=== PATIENT | female | born 1940 | race American Indian/Alaskan Native ===

== ENCOUNTER 2020-01-12 02:04 | Inpatient (IN) | payer MEDICARE, OTHER ==
[2020-01-12] MEDS ORDERED: SODIUM CHLORIDE 0.9% 1000 ML 1,000 ML IV ONE (02:43)
--- NOTE | 2020-01-12 02:45 | Emergency Department Report ---
ED Altered Mental Status HPI - General Chief Complaint: Neuro Symptoms/Deficit Stated Complaint: SICKNESS/NOT EATING PROPERLY PUI?: No Time Seen by Provider: 01/12/20 02:42 Source: EMS Mode of arrival: Stretcher Limitations: Altered Mental Status - History of Present Illness Initial Comments: Patient is a 80-year-old female that presents emergency room with altered mental status and not eating since Thursday. Patient recently admitted into a alf. The nurse at the alf states that the patient has not been acting right. Patient's last known well time is unknown. Patient at this time is alert and oriented x1. MD Complaint: altered mental status, confusion - Related Data Allergies Allergy/AdvReac Type Severity Reaction Status Date / Time No Known Allergies Allergy Verified 01/12/20 05:37 ED Review of Systems ROS: Stated complaint: SICKNESS/NOT EATING PROPERLY Other details as noted in HPI Comment: Unobtainable due to pts medical conditions ED Past Medical Hx - Past Medical History Previous Medical History?: Yes Hx Hypertension: Yes Hx Diabetes: Yes Hx GERD: Yes Hx of Cancer: Yes Hx Psychiatric Treatment: Yes (depression) - Surgical History Past Surgical History?: Yes Additional Surgical History: ostomy - Family History Family history: no significant - Social History Smoking Status: Never Smoker Substance Use Type: Alcohol ED Physical Exam - General Limitations: Altered Mental Status General appearance: alert, in no apparent distress - Head Head exam: Present: atraumatic, normocephalic - Eye Eye exam: Present: normal appearance - ENT ENT exam: Present: mucous membranes moist - Neck Neck exam: Present: normal inspection - Respiratory Respiratory exam: Present: normal lung sounds bilaterally. Absent: respiratory distress - Cardiovascular Cardiovascular Exam: Present: regular rate, normal rhythm. Absent: systolic murmur, diastolic murmur, rubs, gallop - GI/Abdominal GI/Abdominal exam: Present: soft, normal bowel sounds - Extremities Exam Extremities exam: Present: normal inspection - Back Exam Back exam: Present: normal inspection - Neurological Exam Neurological exam: Present: alert, altered - Expanded Neurological Exam Expanded Best Eye Response ([place]): (4) open spontaneously Best Motor Response ([place]): (6) obeys commands Best Verbal Response ([place]): (4) confused conversation [place] Total: 14 - Psychiatric Psychiatric exam: Present: normal affect, normal mood - Skin Skin exam: Present: warm, dry, intact, normal color. Absent: rash - Assessment Assessment Interval: Baseline - Level of Consciousness 1a. Level of Consciousness: alert/keenly responsive - LOC Questions 1b. LOC Questions: answers 1 question correctly - LOC Command 1c. LOC Commands: performs tasks correctly - Best Gaze 2. Best Gaze: normal - Visual 3. Visual: no visual loss - Facial Palsy 4. Facial Palsy: normal symmetrical movement - Motor Arm 5a. Motor Arm Left: no drift 5b. Motor Arm Right: no drift - Motor Leg 6a. Motor Leg Left: no drift 6b. Motor Leg Right: no drift - Limb Ataxia 7. Limb Ataxia: absent - Sensory 8. Sensory: normal - Best Language 9. Best Language: no aphasia - Dysarthria 10. Dysarthria: normal - Extinction and Inattention 11. Extinction/Inattention: no abnormality - Scoring Total Score: 1 Stroke Severity: Minor Stroke ED Course Vital Signs 01/12/20 01/12/20 02:14 04:51 Temperature 99.7 F H 98.2 F Pulse Rate 83 89 Respiratory 26 H 18 Rate Blood Pressure 115/63 119/72 [left arm] O2 Sat by Pulse 98 98 Oximetry - Reevaluation(s) Reevaluation #1: I discussed all results with patient. I discussed plan of care with patient. Patient agrees with plan of care and admission. Patient to be admitted to the hospitalist service. 01/12/20 04:30 - Consultations Consultation #1: Hospitalist consulted for admission. Hospitalist to admit patient. 01/12/20 04:30 - Lab Data Result diagrams: 01/12/20 03:07 01/12/20 03:07 Lab Results 01/12/20 01/12/20 01/12/20 Range/Units 03:07 03:07 03:07 WBC 2.6 L (4.5-11.0) K/mm3 RBC 3.53 L (3.65-5.03) M/mm3 Hgb 11.0 (10.1-14.3) gm/dl Hct 33.4 (30.3-42.9) % MCV 95 (79-97) fl MCH 31 (28-32) pg MCHC 33 (30-34) % RDW 15.3 H (13.2-15.2) % Plt Count 38 L (140-440) K/mm3 Lymph % (Auto) 21.0 (13.4-35.0) % Hood % (Auto) 6.1 (0.0-7.3) % Eos % (Auto) 0.7 (0.0-4.3) % Baso % (Auto) 0.3 (0.0-1.8) % Lymph # (Auto) 0.5 L (1.2-5.4) K/mm3 Hood # (Auto) 0.2 (0.0-0.8) K/mm3 Eos # (Auto) 0.0 (0.0-0.4) K/mm3 Baso # (Auto) 0.0 (0.0-0.1) K/mm3 Seg Neutrophils % 71.9 H (40.0-70.0) % Seg Neutrophils # 1.8 (1.8-7.7) K/mm3 Sodium 137 (137-145) mmol/L Potassium 4.8 (3.6-5.0) mmol/L Chloride 99.5 (98-107) mmol/L Carbon Dioxide 26 (22-30) mmol/L Anion Gap 16 mmol/L BUN 22 H (7-17) mg/dL Creatinine 1.7 H (0.6-1.2) mg/dL Estimated GFR 35 ml/min BUN/Creatinine Ratio 13 % Glucose 125 H (65-100) mg/dL Lactic Acid 1.10 (0.7-2.0) mmol/L Calcium 7.4 L (8.4-10.2) mg/dL Total Bilirubin 0.30 (0.1-1.2) mg/dL AST 21 (5-40) units/L ALT 11 (7-56) units/L Alkaline Phosphatase 33 L (35-129) units/L Ammonia (25-60) umol/L Total Creatine Kinase 74 (30-135) units/L Troponin T < 0.010 (0.00-0.029) ng/mL Total Protein 6.0 L (6.3-8.2) g/dL Albumin 3.4 L (3.9-5) g/dL Albumin/Globulin Ratio 1.3 % Salicylates (2.8-20.0) mg/dL Acetaminophen (10.0-30.0) ug/mL Plasma/Serum Alcohol (0-0.07) % 01/12/20 01/12/20 01/12/20 Range/Units 03:07 03:07 03:07 WBC (4.5-11.0) K/mm3 RBC (3.65-5.03) M/mm3 Hgb (10.1-14.3) gm/dl Hct (30.3-42.9) % MCV (79-97) fl MCH (28-32) pg MCHC (30-34) % RDW (13.2-15.2) % Plt Count (140-440) K/mm3 Lymph % (Auto) (13.4-35.0) % Hood % (Auto) (0.0-7.3) % Eos % (Auto) (0.0-4.3) % Baso % (Auto) (0.0-1.8) % Lymph # (Auto) (1.2-5.4) K/mm3 Hood # (Auto) (0.0-0.8) K/mm3 Eos # (Auto) (0.0-0.4) K/mm3 Baso # (Auto) (0.0-0.1) K/mm3 Seg Neutrophils % (40.0-70.0) % Seg Neutrophils # (1.8-7.7) K/mm3 Sodium (137-145) mmol/L Potassium (3.6-5.0) mmol/L Chloride (98-107) mmol/L Carbon Dioxide (22-30) mmol/L Anion Gap mmol/L BUN (7-17) mg/dL Creatinine (0.6-1.2) mg/dL Estimated GFR ml/min BUN/Creatinine Ratio % Glucose (65-100) mg/dL Lactic Acid (0.7-2.0) mmol/L Calcium (8.4-10.2) mg/dL Total Bilirubin (0.1-1.2) mg/dL AST (5-40) units/L ALT (7-56) units/L Alkaline Phosphatase (35-129) units/L Ammonia 11.0 L (25-60) umol/L Total Creatine Kinase (30-135) units/L Troponin T (0.00-0.029) ng/mL Total Protein (6.3-8.2) g/dL Albumin (3.9-5) g/dL Albumin/Globulin Ratio % Salicylates < 0.3 L (2.8-20.0) mg/dL Acetaminophen 5.0 L (10.0-30.0) ug/mL Plasma/Serum Alcohol (0-0.07) % 01/12/20 Range/Units 03:07 WBC (4.5-11.0) K/mm3 RBC (3.65-5.03) M/mm3 Hgb (10.1-14.3) gm/dl Hct (30.3-42.9) % MCV (79-97) fl MCH (28-32) pg MCHC (30-34) % RDW (13.2-15.2) % Plt Count (140-440) K/mm3 Lymph % (Auto) (13.4-35.0) % Hood % (Auto) (0.0-7.3) % Eos % (Auto) (0.0-4.3) % Baso % (Auto) (0.0-1.8) % Lymph # (Auto) (1.2-5.4) K/mm3 Hood # (Auto) (0.0-0.8) K/mm3 Eos # (Auto) (0.0-0.4) K/mm3 Baso # (Auto) (0.0-0.1) K/mm3 Seg Neutrophils % (40.0-70.0) % Seg Neutrophils # (1.8-7.7) K/mm3 Sodium (137-145) mmol/L Potassium (3.6-5.0) mmol/L Chloride (98-107) mmol/L Carbon Dioxide (22-30) mmol/L Anion Gap mmol/L BUN (7-17) mg/dL Creatinine (0.6-1.2) mg/dL Estimated GFR ml/min BUN/Creatinine Ratio % Glucose (65-100) mg/dL Lactic Acid (0.7-2.0) mmol/L Calcium (8.4-10.2) mg/dL Total Bilirubin (0.1-1.2) mg/dL AST (5-40) units/L ALT (7-56) units/L Alkaline Phosphatase (35-129) units/L Ammonia (25-60) umol/L Total Creatine Kinase (30-135) units/L Troponin T (0.00-0.029) ng/mL Total Protein (6.3-8.2) g/dL Albumin (3.9-5) g/dL Albumin/Globulin Ratio % Salicylates (2.8-20.0) mg/dL Acetaminophen (10.0-30.0) ug/mL Plasma/Serum Alcohol < 0.01 (0-0.07) % - EKG Data -: EKG Interpreted by [place] EKG shows normal: sinus rhythm, axis, intervals, QRS complexes, ST-T waves Rate: normal - Radiology Data Radiology results: report reviewed CHEST 1 VIEW INDICATION: Altered Mental Status. COMPARISON: None. FINDINGS: Support devices: None. Heart: Normal. Lungs/Pleura: There are low lung volumes. No consolidation or effusion. No pneumothorax. IMPRESSION: 1. No acute findings. CT HEAD WITHOUT CONTRAST INDICATION: Altered Mental Status. TECHNIQUE: All CT scans at this location are performed using CT dose reduction for [place] by means of automated exposure control. COMPARISON: None available. FINDINGS: HEMORRHAGE: None. EXTRA-AXIAL SPACES: Normal in size and morphology for the patient's age. VENTRICULAR SYSTEM: Normal in size and morphology for the patient's age. BRAIN PARENCHYMA: No acute findings. Atrophic and presumed microangiopathic changes are noted. MIDLINE SHIFT OR HERNIATION: None. ORBITS: Normal as visualized. SOFT TISSUES OF HEAD: Normal. CALVARIUM: Normal. VISUALIZED PARANASAL SINUSES AND MASTOID AIR CELLS: Because cyst versus polyp is seen in the inferior left maxillary sinus. Sinuses are otherwise clear. ADDITIONAL FINDINGS: None. IMPRESSION: 1. No acute intracranial abnormality. - Medical Decision Making Patient is a 80-year-old female that presents emergency room with poor p.o. intake and confusion and altered mental status. Patient was sent here from her alf because the patient was not acting right. Patient had labs done and labs were remarkable for acute renal failure. Patient had a head CT and a chest x-ray which were both unremarkable. Patient given fluids. Patient admitted to the hospital service for further evaluation and treatment. - Differential Diagnosis Altered mental status, dehydration, UTI, confusion, dementia Critical Care Time: Yes Critical care time in (mins) excluding proc time.: 35 Critical care attestation.: If time is entered above; I have spent that time in minutes in the direct care of this critically ill patient, excluding procedure time. Critical Care Time: 35 minutes ED Disposition Clinical Impression: Poor fluid intake Altered mental state Qualifiers: Altered mental status type: unspecified Qualified Code(s): R41.82 - Altered mental status, unspecified Renal failure Qualifiers: Renal failure chronicity: acute Acute renal failure type: unspecified Qualified Code(s): N17.9 - Acute kidney failure, unspecified Disposition: DC-09 OP ADMIT IP TO THIS HOSP Is pt being admited?: Yes Does the pt Need Aspirin: No Condition: Critical Time of Disposition: 04:26
--- NOTE | 2020-01-12 03:16 | XRay Report ---
CHEST 1 VIEW INDICATION: Altered Mental Status. COMPARISON: None. FINDINGS: Support devices: None. Heart: Normal. Lungs/Pleura: There are low lung volumes. No consolidation or effusion. No pneumothorax. IMPRESSION: 1. No acute findings. Signer Name: Benitez Mercer MD Signed: 01/12/2020 3:11 AM Workstation Name: [id number]
[2020-01-12 03:26] LABS: Basophils % (Auto) 0.3 % (0.0-1.8); Eosinophils % (Auto) 0.7 % (0.0-4.3); Hematocrit 33.4 % (30.3-42.9); Lymphocytes # (Auto) 0.5 K/mm3 (1.2-5.4); Mean Corpuscular HGB Conc 33 % (30-34); Mean Corpuscular Volume 95 fl (79-97); Monocytes # (Auto) 0.2 K/mm3 (0.0-0.8); Monocytes % (Auto) 6.1 % (0.0-7.3); Red Blood Count 3.53 M/mm3 (3.65-5.03); Red Cell Distribution Width 15.3 % (13.2-15.2)
--- NOTE | 2020-01-12 03:27 | Cat Scan Report ---
CT HEAD WITHOUT CONTRAST INDICATION: Altered Mental Status. TECHNIQUE: All CT scans at this location are performed using CT dose reduction for [place] by means of automated e xposure control. COMPARISON: None available. FINDINGS: HEMORRHAGE: None. EXTRA-AXIAL SPACES: Normal in size and morphology for the patient's age. VENTRICULAR SYSTEM: Normal in size and morphology for the patient's age. BRAIN PARENCHYMA: No acute findings. Atrophic and presumed microangiopathic changes are noted. MIDLINE SHIFT OR HERNIATION: None. ORBITS: Normal as visualized. SOFT TISSUES OF HEAD: Normal. CALVARIUM: Normal. VISUALIZED PARANASAL SINUSES AND MASTOID AIR CELLS: Because cyst versus polyp is seen in the inferior left maxillary sinus. Sinuses are otherwise clear. ADDITIONAL FINDINGS: None. IMPRESSION: 1. No acute intracranial abnormality. Signer Name: Benitez Mercer MD Signed: 01/12/2020 3:22 AM Workstation Name: [id number]
[2020-01-12 03:28] LABS: Platelet Count 38 K/mm3 (140-440)
[2020-01-12 03:48] LABS: Alanine Aminotransferase 11 units/L (7-56); Albumin 3.4 g/dL (3.9-5); BUN/Creatinine Ratio 13; Blood Urea Nitrogen 22 mg/dL (7-17); Calcium 7.4 mg/dL (8.4-10.2); Hemolysis Index 4
[2020-01-12] MEDS ORDERED: DEXTROSE 50% IN WATER (25GM) 50 ML SYRINGE IV PRN (05:22)
[2020-01-12] MEDS ORDERED: MAGNESIUM HYDROXIDE (MOM) ORAL LIQD UDC PO PRN (05:22)
[2020-01-12] MEDS ORDERED: ONDANSETRON 4 MG/2 ML INJ IV PRN (05:22)
--- NOTE | 2020-01-12 05:31 | History and Physical Report ---
History of Present Illness Date of examination: 01/12/20 Date of admission: 01/12/20 04:42 Chief complaint: Altered mental Status History of present illness: 80-year-old -[place] female with past medical history of hypertension, diabetes mellitus, GERD and depression brought into the emergency room today for altered mental status. [facility] and staff at the facility indicates patient has not been acting her usual self. Patient has become more alert since arriving in the emergency room and able to answer questions appropriately. Work-up in the emergency room reveals elevated BUN and creatinine on the chemistry. CT scan of the head and chest x-ray were unremarkable. Urinalysis is still being awaited. Patient is being admitted for changes in mental status and acute kidney injury. Past History Past Medical History: diabetes, GERD, hypertension, other (Deporession,) Past Surgical History: Other (Ostomy placement) Social history: alcohol abuse Family history: no significant family history Medications and Allergies Allergies Allergy/AdvReac Type Severity Reaction Status Date / Time No Known Allergies Allergy Verified 01/12/20 05:37 Home Medications Medication Instructions Recorded Confirmed Last Taken Type No Known Home Medications [No 01/12/20 01/12/20 Unknown History Reported Home Medications] Review of Systems Constitutional: no fever, no chills Ears, nose, mouth and throat: no nasal congestion, no sore throat Cardiovascular: no chest pain, no palpitations Respiratory: no cough, no shortness of breath Gastrointestinal: no abdominal pain, no nausea, no vomiting, no diarrhea Genitourinary Female: no dysuria, no hematuria, no nocturia Musculoskeletal: no neck pain, no low back pain Integumentary: no rash, no pruritis Neurological: no headaches, no confusion Psychiatric: no anxiety, no depression Exam - Constitutional Vitals: Temp Pulse Resp BP Pulse Ox 98.2 F 89 18 119/72 98 01/12/20 04:51 01/12/20 04:51 01/12/20 04:51 01/12/20 04:51 01/12/20 04:51 General appearance: Present: no acute distress, well-nourished - EENT Eyes: Present: PERRL, EOM intact. Absent: scleral icterus ENT: hearing intact, clear oral mucosa, dentition normal - Neck Neck: Present: supple, normal ROM - Respiratory Respiratory effort: normal Respiratory: bilateral: CTA - Cardiovascular Rhythm: regular Heart Sounds: Present: S1 & S2. Absent: gallop, systolic murmur, diastolic murmur, rub - Extremities Extremities: no ischemia, pulses intact, pulses symmetrical, No edema, Full ROM Peripheral Pulses: within normal limits - Abdominal General gastrointestinal: Present: soft, non-tender, non-distended, normal bowel sounds, other (Colostomy in place.). Absent: mass - Integumentary Integumentary: Present: clear, warm, dry. Absent: rash - Musculoskeletal Musculoskeletal: strength equal bilaterally - Psychiatric Psychiatric: appropriate mood/affect, intact judgment & insight, memory intact, cooperative - Neurologic Neurologic: CNII-XII intact, no focal deficits, moves all extremities HEART Score - HEART Score Troponin: Troponin T < 0.010 ng/mL (0.00-0.029) 01/12/20 03:07 Results - Labs CBC & Chem 7: 01/12/20 03:07 01/12/20 03:07 Labs: Abnormal lab results 01/12/20 01/12/20 01/12/20 Range/Units 03:07 03:07 03:07 WBC 2.6 L (4.5-11.0) K/mm3 RBC 3.53 L (3.65-5.03) M/mm3 RDW 15.3 H (13.2-15.2) % Plt Count 38 L (140-440) K/mm3 Lymph # (Auto) 0.5 L (1.2-5.4) K/mm3 Seg Neutrophils % 71.9 H (40.0-70.0) % BUN 22 H (7-17) mg/dL Creatinine 1.7 H (0.6-1.2) mg/dL Glucose 125 H (65-100) mg/dL Calcium 7.4 L (8.4-10.2) mg/dL Alkaline Phosphatase 33 L (35-129) units/L Ammonia 11.0 L (25-60) umol/L Total Protein 6.0 L (6.3-8.2) g/dL Albumin 3.4 L (3.9-5) g/dL Salicylates (2.8-20.0) mg/dL Acetaminophen (10.0-30.0) ug/mL 01/12/20 01/12/20 Range/Units 03:07 03:07 WBC (4.5-11.0) K/mm3 RBC (3.65-5.03) M/mm3 RDW (13.2-15.2) % Plt Count (140-440) K/mm3 Lymph # (Auto) (1.2-5.4) K/mm3 Seg Neutrophils % (40.0-70.0) % BUN (7-17) mg/dL Creatinine (0.6-1.2) mg/dL Glucose (65-100) mg/dL Calcium (8.4-10.2) mg/dL Alkaline Phosphatase (35-129) units/L Ammonia (25-60) umol/L Total Protein (6.3-8.2) g/dL Albumin (3.9-5) g/dL Salicylates < 0.3 L (2.8-20.0) mg/dL Acetaminophen 5.0 L (10.0-30.0) ug/mL Assessment and Plan - Patient Problems (1) Altered mental state Current Visit: Yes Status: Acute Qualifiers: Altered mental status type: unspecified Qualified Code(s): R41.82 - Altered mental status, unspecified Plan to address problem: Etiology is unclear. Will monitor mental status. (2) Diabetes mellitus Current Visit: Yes Status: Acute Plan to address problem: We will monitor Accu-Cheks. (3) Hypertension Current Visit: Yes Status: Acute Plan to address problem: We will resume routine home medications on the monitor vital signs closely. (4) Renal failure Current Visit: Yes Status: Acute Qualifiers: Renal failure chronicity: acute Acute renal failure type: unspecified Qualified Code(s): N17.9 - Acute kidney failure, unspecified Plan to address problem: Patient placed on IV fluid. Will monitor BUN and creatinine. Baseline BUN and creatinine is unknown. We will place consult to nephrology for evaluation. (5) DVT prophylaxis Current Visit: Yes Status: Acute Plan to address problem: Patient placed on subcutaneous heparin. (6) Full code status Current Visit: Yes Status: Acute
[2020-01-12] MEDS ORDERED: HEPARIN 5,000 UNIT/1 ML VIAL SUB-Q SCH (06:00)
[2020-01-12] MEDS ORDERED: HEPARIN 5,000 UNIT/1 ML VIAL ONE (06:29)
[2020-01-12 07:05] LABS: Bacteria,Urine 1+ /HPF (Negative); Bilirubin,Urine NEG (Negative); Blood,Urine NEG (Negative); Color,Urine Amber (Yellow); Mucus,Urine FEW /HPF; Urobilinogen,Urine < 2.0 mg/dL (<2.0)
[2020-01-12 07:07] LABS: Amphetamine Screen,Urine PRESUMPTIVE NEGATIVE; Benzodiazepines Screen,Urine PRESUMPTIVE NEGATIVE; Cannabinoid Screen,Urine PRESUMPTIVE NEGATIVE; Cocaine Screen,Urine PRESUMPTIVE NEGATIVE; Methadone Screen,Urine PRESUMPTIVE NEGATIVE; Opiate Screen,Urine PRESUMPTIVE NEGATIVE
[2020-01-12] MEDS: INSULIN LISPRO 100 UNIT/ML VIAL 3 mL SUB-Q SCH ×4 (08:35→21:26)
[2020-01-12] MEDS: SODIUM CHLORIDE 0.9% 1000 ML 1,000 ML IV SCH ×2 (09:07→16:52)
--- NOTE | 2020-01-12 12:13 | Event Note ---
Date: 01/12/20 Patient seen and examined, resting mental status improving. Will continue to monitor.
--- NOTE | 2020-01-12 12:49 | Consultation ---
History of Present Illness - Reason for Consult Consult date: 01/12/20 acute renal failure Requesting physician: SOLOMON MARTINEZ - History of Present Illness This is a 80 yo AAF, resident of [facility], with past medical history of hypertension, diabetes mellitus, GERD and depression, sent to ER for evaluation of altered mental status. CT head and CXR showed no acute findings, UA showed evidence of UTI, however showed mild proteinuria. labs also showed elevated BUN/Cr at 22/1.7mg/dl for which renal consult is requested. No previous labs available.Pt is not able to give detailed history, history obtained by chart review. Past History Past Medical History: diabetes, GERD, hypertension, other (Deporession,) Past Surgical History: Other (Ostomy placement) Social history: alcohol abuse Family history: no significant family history Medications and Allergies Allergies Allergy/AdvReac Type Severity Reaction Status Date / Time No Known Allergies Allergy Verified 01/12/20 05:37 Home Medications Medication Instructions Recorded Confirmed Last Taken Type No Known Home Medications [No 01/12/20 01/12/20 Unknown History Reported Home Medications] Active Meds: Active Medications Acetaminophen (Tylenol) 650 mg PO Q4H PRN PRN Reason: Pain MILD(1-3)/Fever >100.5/BOO Dextrose (D50w (25gm) Syringe) 50 ml IV Q30MIN PRN; Protocol PRN Reason: Hypoglycemia Sodium Chloride (Nacl 0.9% 1000 Ml) 1,000 mls @ 125 mls/hr IV DIRECT LEONARD Last Admin: 01/12/20 09:07 Dose: 125 mls/hr Documented by: Insulin Human Lispro (Humalog) 0 unit SUB-Q ACHS LEONARD; Protocol Last Admin: 01/12/20 11:53 Dose: Not Given Documented by: Magnesium Hydroxide (Milk Of Magnesia) 30 ml PO Q4H PRN PRN Reason: Constipation Morphine Sulfate (Morphine) 2 mg IV Q4H PRN PRN Reason: Pain, Moderate (4-6) Ondansetron HCl (Zofran) 4 mg IV Q8H PRN PRN Reason: Nausea And Vomiting Sodium Chloride (Sodium Chloride Flush Syringe 10 Ml) 10 ml IV BID LEONARD Last Admin: 01/12/20 10:51 Dose: 10 ml Documented by: Sodium Chloride (Sodium Chloride Flush Syringe 10 Ml) 10 ml IV PRN PRN PRN Reason: LINE FLUSH Review of Systems ROS unobtainable: due to mental status Exam - Vital Signs Vital signs: Vital Signs Pulse Resp Pulse Ox 86 23 100 01/12/20 02:11 01/12/20 02:11 01/12/20 02:11 - General Appearance General appearance: well-developed, well-nourished, appears stated age EENT: ATNC, PERRL, mucous membranes dry Neck: Present: neck supple Respiratory: Clear to Ascultation Heart: regular, S1S2 Gastrointestinal: Present: normoactive bowel sounds Integumentary: no rash Neurologic: no focal deficit, alert and oriented x3, strength 5/5, CN 3-12 intact Psychiatric: mood/affect appropriate, cooperative Results - Lab Results 01/12/20 03:07 01/12/20 03:07 Most recent lab results Calcium 7.4 mg/dL (8.4-10.2) L 01/12/20 03:07 Assessment and Plan - Patient Problems (1) Acute kidney injury Current Visit: Yes Status: Acute Plan to address problem: acute kidney injury most likely d/t pre-renal azotemia in the setting of poor po intake. check Urine lytes, urine P/C ratio. Cont IV NS at 125ml/hr. Will monitor lytes and renal parameters closely and make further recommendations (2) Altered mental state Current Visit: Yes Status: Acute Qualifiers: Altered mental status type: unspecified Qualified Code(s): R41.82 - Altered mental status, unspecified Plan to address problem: unclear etiology, unlikely uremic encephalopathy given only mild MARISOL. to rule out psychiatric etiology (3) Diabetes mellitus Current Visit: Yes Status: Acute Plan to address problem: diabetes management as per primary attending (4) Hypertension Current Visit: Yes Status: Acute Plan to address problem: BP controlled off meds
[2020-01-13] MEDS: INSULIN LISPRO 100 UNIT/ML VIAL 3 mL SUB-Q SCH ×4 (09:27→21:28)
[2020-01-13 11:45] LABS: BUN/Creatinine Ratio 16; Blood Urea Nitrogen 16 mg/dL (7-17); Calcium 7.4 mg/dL (8.4-10.2); Hemolysis Index 167
[2020-01-13] MEDS ORDERED: SODIUM POLYSTYRENE 15 GM/60 ML ORAL LIQD PO NR (12:13)
--- NOTE | 2020-01-13 12:18 | Progress Note ---
Assessment and Plan Assessment and plan: (1) Altered mental state Current Visit: Yes Status: Acute Qualifiers: Altered mental status type: unspecified Qualified Code(s): R41.82 - Altered mental status, unspecified Plan to address problem: Etiology is unclear. Will monitor mental status. CT head is normal Neurology consulted yesterday by my colleague Patient is alert and oriented PT evaluation (2) Diabetes mellitus Current Visit: Yes Status: Acute Plan to address problem: We will monitor Accu-Cheks. (3) Hypertension Current Visit: Yes Status: Acute Plan to address problem: We will resume routine home medications on the monitor vital signs closely. (4) Renal failure Current Visit: Yes Status: Acute Qualifiers: Renal failure chronicity: acute Acute renal failure type: unspecified Qualified Code(s): N17.9 - Acute kidney failure, unspecified Plan to address problem: Patient placed on IV fluid. Will monitor BUN and creatinine. Baseline BUN and creatinine is unknown. We will place consult to nephrology for evaluation. 01/13/2020 -Patient's creatinine improved -Patient has hyperkalemia and Kayexalate was given (5) DVT prophylaxis Current Visit: Yes Status: Acute Plan to address problem: Patient placed on subcutaneous heparin. (6) Full code status Current Visit: Yes Status: Acute History Interval history: Patient was seen and evaluated this morning Patient says she is feeling sick Hospitalist Physical - Physical exam Narrative exam: Not in cardiopulmonary distress. The patient is obese. Vital signs as documented. Head exam is unremarkable. No scleral icterus . Neck is without jugular venous distension, thyromegaly, or carotid bruits. Lungs are clear to auscultation. Cardiac exam reveals regular rate and Rhythm. Abdominal exam reveals normal bowel sounds, nontender, no organomegaly. Extremities are nonedematous and both femoral and pedal pulses are normal. RAND BUTTER: Alert and oriented 3. No focal weakness. - Constitutional Vitals: Temp Pulse Resp BP Pulse Ox 98.0 F 63 18 135/68 100 01/13/20 08:16 01/13/20 10:00 01/13/20 10:00 01/13/20 08:16 01/13/20 10:00 General appearance: Present: no acute distress, well-nourished HEART Score - HEART Score Troponin: Troponin T < 0.010 ng/mL (0.00-0.029) 01/12/20 05:30 Results - Labs CBC & Chem 7: 01/12/20 03:07 01/13/20 10:30 Labs: Laboratory Last Values WBC 2.6 K/mm3 (4.5-11.0) L 01/12/20 03:07 RBC 3.53 M/mm3 (3.65-5.03) L 01/12/20 03:07 Hgb 11.0 gm/dl (10.1-14.3) 01/12/20 03:07 Hct 33.4 % (30.3-42.9) 01/12/20 03:07 MCV 95 fl (79-97) 01/12/20 03:07 MCH 31 pg (28-32) 01/12/20 03:07 MCHC 33 % (30-34) 01/12/20 03:07 RDW 15.3 % (13.2-15.2) H 01/12/20 03:07 Plt Count 38 K/mm3 (140-440) L 01/12/20 03:07 Lymph % (Auto) 21.0 % (13.4-35.0) 01/12/20 03:07 [place] % (Auto) 6.1 % (0.0-7.3) 01/12/20 03:07 Eos % (Auto) 0.7 % (0.0-4.3) 01/12/20 03:07 Baso % (Auto) 0.3 % (0.0-1.8) 01/12/20 03:07 Lymph # (Auto) 0.5 K/mm3 (1.2-5.4) L 01/12/20 03:07 [place] # (Auto) 0.2 K/mm3 (0.0-0.8) 01/12/20 03:07 Eos # (Auto) 0.0 K/mm3 (0.0-0.4) 01/12/20 03:07 Baso # (Auto) 0.0 K/mm3 (0.0-0.1) 01/12/20 03:07 Seg Neutrophils % 71.9 % (40.0-70.0) H 01/12/20 03:07 Seg Neutrophils # 1.8 K/mm3 (1.8-7.7) 01/12/20 03:07 Sodium 140 mmol/L (137-145) 01/13/20 10:30 Potassium 5.4 mmol/L (3.6-5.0) H 01/13/20 10:30 Chloride 107.9 mmol/L (98-107) H 01/13/20 10:30 Carbon Dioxide 23 mmol/L (22-30) 01/13/20 10:30 Anion Gap 15 mmol/L 01/13/20 10:30 BUN 16 mg/dL (7-17) 01/13/20 10:30 Creatinine 1.0 mg/dL (0.6-1.2) 01/13/20 10:30 Estimated GFR > 60 ml/min 01/13/20 10:30 BUN/Creatinine Ratio 16 % 01/13/20 10:30 Glucose 134 mg/dL (65-100) H 01/13/20 10:30 POC Glucose 112 mg/dL (70-105) H 01/13/20 11:57 Lactic Acid 1.10 mmol/L (0.7-2.0) 01/12/20 03:07 Calcium 7.4 mg/dL (8.4-10.2) L 01/13/20 10:30 Total Bilirubin 0.30 mg/dL (0.1-1.2) 01/12/20 03:07 AST 21 units/L (5-40) 01/12/20 03:07 ALT 11 units/L (7-56) 01/12/20 03:07 Alkaline Phosphatase 33 units/L (35-129) L 01/12/20 03:07 Ammonia 11.0 umol/L (25-60) L 01/12/20 03:07 Total Creatine Kinase 74 units/L (30-135) 01/12/20 03:07 Troponin T < 0.010 ng/mL (0.00-0.029) 01/12/20 05:30 Total Protein 6.0 g/dL (6.3-8.2) L 01/12/20 03:07 Albumin 3.4 g/dL (3.9-5) L 01/12/20 03:07 Albumin/Globulin Ratio 1.3 % 01/12/20 03:07 Urine Color [place] (Yellow) 01/12/20 Unknown Urine Turbidity Clear (Clear) 01/12/20 Unknown Urine pH 5.0 (5.0-7.0) 01/12/20 Unknown Ur Specific [place] 1.020 (1.003-1.030) 01/12/20 Unknown Urine Protein 30 mg/dl mg/dL (Negative) 01/12/20 Unknown Urine Glucose (UA) Neg mg/dL (Negative) 01/12/20 Unknown Urine Ketones Neg mg/dL (Negative) 01/12/20 Unknown Urine Blood Neg (Negative) 01/12/20 Unknown Urine Nitrite Neg (Negative) 01/12/20 Unknown Urine Bilirubin Neg (Negative) 01/12/20 Unknown Urine Urobilinogen < 2.0 mg/dL (<2.0) 01/12/20 Unknown Ur Leukocyte Esterase Neg (Negative) 01/12/20 Unknown Urine WBC (Auto) 4.0 /HPF (0.0-6.0) 01/12/20 Unknown Urine RBC (Auto) 4.0 /HPF (0.0-6.0) 01/12/20 Unknown Urine Bacteria (Auto) 1+ /HPF (Negative) 01/12/20 Unknown Urine Mucus Few /HPF 01/12/20 Unknown Salicylates < 0.3 mg/dL (2.8-20.0) L 01/12/20 03:07 Urine Opiates Screen Presumptive negative 01/12/20 Unknown Urine Methadone Screen Presumptive negative 01/12/20 Unknown Acetaminophen 5.0 ug/mL (10.0-30.0) L 01/12/20 03:07 Ur Barbiturates Screen Presumptive negative 01/12/20 Unknown Ur Phencyclidine Scrn Presumptive negative 01/12/20 Unknown Ur Amphetamines Screen Presumptive negative 01/12/20 Unknown U Benzodiazepines Scrn Presumptive negative 01/12/20 Unknown Urine Cocaine Screen Presumptive negative 01/12/20 Unknown U Marijuana (THC) Screen Presumptive negative 01/12/20 Unknown Drugs of Abuse Note Disclamer 01/12/20 Unknown Plasma/Serum Alcohol < 0.01 % (0-0.07) 01/12/20 03:07 Khan/IV: Voiding Method External Female Catheter IV Catheter Type [Right Distal INT / Saline Lock Port Antecubital] Active Medications - Current Medications Current Medications: Generic Name Dose Route Start Last Admin Trade Name Freq PRN Reason Stop Dose Admin Acetaminophen 650 mg 01/12/20 05:22 Tylenol PO Q4H PRN Pain MILD(1-3)/Fever >100.5/BOO Dextrose 50 ml 01/12/20 05:22 D50w (25gm) Syringe IV Q30MIN PRN Hypoglycemia Protocol Sodium Chloride 1,000 mls @ 125 mls/hr 01/12/20 05:30 01/12/20 16:52 Nacl 0.9% 1000 Ml IV 125 mls/hr DIRECT LEONARD Administration Insulin Human Lispro 0 unit 01/12/20 07:30 01/13/20 09:27 Humalog SUB-Q Not Given ACHS LEONARD Protocol Magnesium Hydroxide 30 ml 01/12/20 05:22 Milk Of Magnesia PO Q4H PRN Constipation Morphine Sulfate 2 mg 01/12/20 05:22 Morphine IV Q4H PRN Pain, Moderate (4-6) Ondansetron HCl 4 mg 01/12/20 05:22 Zofran IV Q8H PRN Nausea And Vomiting Sodium Chloride 10 ml 01/12/20 10:00 01/13/20 09:28 Sodium Chloride Flush Syringe 10 Ml IV 10 ml BID LEONARD Administration Sodium Chloride 10 ml 01/12/20 05:22 Sodium Chloride Flush Syringe 10 Ml IV PRN PRN LINE FLUSH Sodium Polystyrene Sulfonate 30 gm 01/13/20 12:13 Kionex PO 01/13/20 17:00 ONCE NR Nutrition/Malnutrition Assess - Dietary Evaluation Nutrition/Malnutrition Findings: Nutrition Notes Start: 01/12/20 10:30 Freq: Status: Active Protocol: Document 01/12/20 10:34 LP (Rec: 01/12/20 10:38 LP [id number]) Nutrition Notes Need for Assessment generated from: MD Order Initial or Follow up Assessment Current Diagnosis Acute Kidney Injury,Diabetes, Hypertension Other Pertinent Diagnosis CA, AMS Current Diet Cardiac/Consistent CHO Labs/Tests BUN 22 Cr 1.7 Pertinent Medications NS at 125ml/hr Height 5 ft 6 in Weight 114.305 kg [place] Body Weight (kg) 59.09 BMI 40.6 Weight Status Morbidly Obese Subjective/Other Information Consult for diet education. Pt not appropriate for diet education. Pt noted not eating for 5 days. Burn Absent Trauma Absent GI Symptoms None Current % PO Negligible Minimum of two criteria No Energy Intake (severe) < or equal to 50% Estimated Energy Requirement > or equal to 5 days #1 Nutrition Diagnosis Inadequate oral intake Etiology AMS As Evidenced by Signs and Symptoms Pt noted not eating for 5 days Is patient on ventilator? No Is Patient Ambulatory and/or Out of Bed No REE-([place]-confined to bed) 1967.976 Kcal/Kg value to use for calculation 12 Approximate Energy Requirements Using 1372 kcal/Kg Calculation Used for Recommendations Kcal/kg Additional Notes Protein needs are 87-104g (1-1 .2g/kg Adj wt 86.5kg) Fluid needs are 1ml/kcal Nutrition Intervention Change Diet Order: Continue Add Supplement/Snack (indicate name/kcal Glucerna TID /protein ) Provides kCal: 660 Provides Protein (gm) 30 Goal #1 Meet at least 80% of kcal and protein needs Anticipated Discharge Needs: Cardiac/Consistent CHO with ONS as needed Follow-Up By: 01/16/20 Additional Comments Follow for intakes and ONS tolerance
--- NOTE | 2020-01-13 12:25 | Progress Note ---
Assessment and Plan - Patient Problems (1) Acute kidney injury Current Visit: Yes Status: Acute Plan to address problem: acute kidney injury most likely d/t pre-renal azotemia in the setting of poor po intake. renal function improved significantly, will d/c IV NS. Will monitor lytes and renal parameters closely and make further recommendations (2) Altered mental state Current Visit: Yes Status: Acute Qualifiers: Altered mental status type: unspecified Qualified Code(s): R41.82 - Altered mental status, unspecified Plan to address problem: improved (3) Diabetes mellitus Current Visit: Yes Status: Acute Plan to address problem: diabetes management as per primary attending (4) Hypertension Current Visit: Yes Status: Acute Plan to address problem: BP controlled off meds Subjective Date of service: 01/13/20 Principal diagnosis: MAIRSOL Interval history: patient awake, alert, in no acute distress Objective - Vital Signs Vital signs: Vital Signs - 12hr 01/13/20 01/13/20 01/13/20 00:48 05:00 05:16 Temperature 97.7 F 97.7 F Pulse Rate 61 62 62 Pulse Rate [ From Monitor] Respiratory 20 18 Rate Blood Pressure 150/43 Blood Pressure 120/48 [left arm] O2 Sat by Pulse 98 96 Oximetry 01/13/20 01/13/20 08:16 10:00 Temperature 98.0 F Pulse Rate 62 Pulse Rate [ 63 From Monitor] Respiratory 20 18 Rate Blood Pressure 135/68 Blood Pressure [left arm] O2 Sat by Pulse 96 100 Oximetry - General Appearance General appearance: well-developed, well-nourished, appears stated age EENT: ATNC, PERRL, mucous membranes moist Neck: no JVD Respiratory: Present: Clear to Ascultation Cardiology: regular, S1S2 Gastrointestinal: normoactive bowel sounds Integumentary: no rash Neurologic: no focal deficit, CN 3-12 intact Psychiatric: mood/affect appropriate, cooperative - Lab 01/12/20 03:07 01/13/20 10:30 Most recent lab results Calcium 7.4 mg/dL (8.4-10.2) L 01/13/20 10:30 Medications & Allergies - Medications Allergies/Adverse Reactions: Allergies No Known Allergies Allergy (Verified 01/12/20 05:37) Home Medications: Home Medications Medication Instructions Recorded Confirmed Last Taken Type No Known Home Medications [No 01/12/20 01/12/20 Unknown History Reported Home Medications] Active Medications: Generic Name Dose Route Start Last Admin Trade Name Renoq PRN Reason Stop Dose Admin Acetaminophen 650 mg 01/12/20 05:22 Tylenol PO Q4H PRN Pain MILD(1-3)/Fever >100.5/BOO Dextrose 50 ml 01/12/20 05:22 D50w (25gm) Syringe IV Q30MIN PRN Hypoglycemia Protocol Insulin Human Lispro 0 unit 01/12/20 07:30 01/13/20 09:27 Humalog SUB-Q Not Given ACHS [facility] Protocol Magnesium Hydroxide 30 ml 01/12/20 05:22 Milk Of Magnesia PO Q4H PRN Constipation Morphine Sulfate 2 mg 01/12/20 05:22 Morphine IV Q4H PRN Pain, Moderate (4-6) Ondansetron HCl 4 mg 01/12/20 05:22 Zofran IV Q8H PRN Nausea And Vomiting Sodium Chloride 10 ml 01/12/20 10:00 01/13/20 09:28 Sodium Chloride Flush Syringe 10 Ml IV 10 ml BID LEONARD Administration Sodium Chloride 10 ml 01/12/20 05:22 Sodium Chloride Flush Syringe 10 Ml IV PRN PRN LINE FLUSH Sodium Polystyrene Sulfonate 30 gm 01/13/20 12:13 01/13/20 12:21 Kionex PO 01/13/20 17:00 30 gm ONCE NR Administration
[2020-01-14 05:09] LABS: BUN/Creatinine Ratio 12; Blood Urea Nitrogen 11 mg/dL (7-17); Calcium 7.4 mg/dL (8.4-10.2); Hemolysis Index 9
[2020-01-14] MEDS: INSULIN LISPRO 100 UNIT/ML VIAL 3 mL SUB-Q SCH ×4 (08:30→22:03)
--- NOTE | 2020-01-14 09:27 | Progress Note ---
Assessment and Plan Assessment and plan: (1) Altered mental state Current Visit: Yes Status: Acute Qualifiers: Altered mental status type: unspecified Qualified Code(s): R41.82 - Altered mental status, unspecified Plan to address problem: Etiology is unclear. Will monitor mental status. CT head is normal Neurology consulted yesterday by my colleague Patient is alert and oriented PT evaluation (2) Diabetes mellitus Current Visit: Yes Status: Acute Plan to address problem: We will monitor Accu-Cheks. (3) Hypertension Current Visit: Yes Status: Acute Plan to address problem: We will resume routine home medications on the monitor vital signs closely. (4) Renal failure Current Visit: Yes Status: Acute Qualifiers: Renal failure chronicity: acute Acute renal failure type: unspecified Qualified Code(s): N17.9 - Acute kidney failure, unspecified Plan to address problem: Patient placed on IV fluid. Will monitor BUN and creatinine. Baseline BUN and creatinine is unknown. We will place consult to nephrology for evaluation. 01/13/2020 -Patient's creatinine improved -Patient has hyperkalemia and Kayexalate was given (5) DVT prophylaxis Current Visit: Yes Status: Acute Plan to address problem: Patient placed on subcutaneous heparin. (6) Full code status Current Visit: Yes Status: Acute 01/14/2020 -MARISOL resolved, hyperkalemia resolved. Altered mental status resolved. Patient is weak and states she is feeling sick, evaluated by physical therapy and recommend subacute rehab. History Interval history: Patient was seen and evaluated this morning Patient says she is feeling sick Hospitalist Physical - Physical exam Narrative exam: Not in cardiopulmonary distress. The patient is obese. Vital signs as documented. Head exam is unremarkable. No scleral icterus . Neck is without jugular venous distension, thyromegaly, or carotid bruits. Lungs are clear to auscultation. Cardiac exam reveals regular rate and Rhythm. Abdominal exam reveals normal bowel sounds, nontender, no organomegaly. Extremities are nonedematous and both femoral and pedal pulses are normal. [place]: Alert and oriented 3. No focal weakness. - Constitutional Vitals: Temp Pulse Resp BP Pulse Ox 97.8 F 68 18 148/61 98 01/14/20 07:37 01/14/20 07:37 01/14/20 07:37 01/14/20 07:37 01/14/20 07:37 General appearance: Present: no acute distress, well-nourished HEART Score - HEART Score Troponin: Troponin T < 0.010 ng/mL (0.00-0.029) 01/12/20 05:30 Results - Labs CBC & Chem 7: 01/12/20 03:07 01/14/20 04:27 Labs: Laboratory Last Values WBC 2.6 K/mm3 (4.5-11.0) L 01/12/20 03:07 RBC 3.53 M/mm3 (3.65-5.03) L 01/12/20 03:07 Hgb 11.0 gm/dl (10.1-14.3) 01/12/20 03:07 Hct 33.4 % (30.3-42.9) 01/12/20 03:07 MCV 95 fl (79-97) 01/12/20 03:07 MCH 31 pg (28-32) 01/12/20 03:07 MCHC 33 % (30-34) 01/12/20 03:07 RDW 15.3 % (13.2-15.2) H 01/12/20 03:07 Plt Count 38 K/mm3 (140-440) L 01/12/20 03:07 Lymph % (Auto) 21.0 % (13.4-35.0) 01/12/20 03:07 [place] % (Auto) 6.1 % (0.0-7.3) 01/12/20 03:07 Eos % (Auto) 0.7 % (0.0-4.3) 01/12/20 03:07 Baso % (Auto) 0.3 % (0.0-1.8) 01/12/20 03:07 Lymph # (Auto) 0.5 K/mm3 (1.2-5.4) L 01/12/20 03:07 [place] # (Auto) 0.2 K/mm3 (0.0-0.8) 01/12/20 03:07 Eos # (Auto) 0.0 K/mm3 (0.0-0.4) 01/12/20 03:07 Baso # (Auto) 0.0 K/mm3 (0.0-0.1) 01/12/20 03:07 Seg Neutrophils % 71.9 % (40.0-70.0) H 01/12/20 03:07 Seg Neutrophils # 1.8 K/mm3 (1.8-7.7) 01/12/20 03:07 Sodium 141 mmol/L (137-145) 01/14/20 04:27 Potassium 4.2 mmol/L (3.6-5.0) D 01/14/20 04:27 Chloride 104.9 mmol/L (98-107) 01/14/20 04:27 Carbon Dioxide 24 mmol/L (22-30) 01/14/20 04:27 Anion Gap 16 mmol/L 01/14/20 04:27 BUN 11 mg/dL (7-17) 01/14/20 04:27 Creatinine 0.9 mg/dL (0.6-1.2) 01/14/20 04:27 Estimated GFR > 60 ml/min 01/14/20 04:27 BUN/Creatinine Ratio 12 % 01/14/20 04:27 Glucose 100 mg/dL (65-100) 01/14/20 04:27 POC Glucose 94 mg/dL (70-105) 01/14/20 08:17 Lactic Acid 1.10 mmol/L (0.7-2.0) 01/12/20 03:07 Calcium 7.4 mg/dL (8.4-10.2) L 01/14/20 04:27 Total Bilirubin 0.30 mg/dL (0.1-1.2) 01/12/20 03:07 AST 21 units/L (5-40) 01/12/20 03:07 ALT 11 units/L (7-56) 01/12/20 03:07 Alkaline Phosphatase 33 units/L (35-129) L 01/12/20 03:07 Ammonia 11.0 umol/L (25-60) L 01/12/20 03:07 Total Creatine Kinase 74 units/L (30-135) 01/12/20 03:07 Troponin T < 0.010 ng/mL (0.00-0.029) 01/12/20 05:30 Total Protein 6.0 g/dL (6.3-8.2) L 01/12/20 03:07 Albumin 3.4 g/dL (3.9-5) L 01/12/20 03:07 Albumin/Globulin Ratio 1.3 % 01/12/20 03:07 Urine Color Jaycee (Yellow) 01/12/20 Unknown Urine Turbidity Clear (Clear) 01/12/20 Unknown Urine pH 5.0 (5.0-7.0) 01/12/20 Unknown Ur Specific [place] 1.020 (1.003-1.030) 01/12/20 Unknown Urine Protein 30 mg/dl mg/dL (Negative) 01/12/20 Unknown Urine Glucose (UA) Neg mg/dL (Negative) 01/12/20 Unknown Urine Ketones Neg mg/dL (Negative) 01/12/20 Unknown Urine Blood Neg (Negative) 01/12/20 Unknown Urine Nitrite Neg (Negative) 01/12/20 Unknown Urine Bilirubin Neg (Negative) 01/12/20 Unknown Urine Urobilinogen < 2.0 mg/dL (<2.0) 01/12/20 Unknown Ur Leukocyte Esterase Neg (Negative) 01/12/20 Unknown Urine WBC (Auto) 4.0 /HPF (0.0-6.0) 01/12/20 Unknown Urine RBC (Auto) 4.0 /HPF (0.0-6.0) 01/12/20 Unknown Urine Bacteria (Auto) 1+ /HPF (Negative) 01/12/20 Unknown Urine Mucus Few /HPF 01/12/20 Unknown Urine Creatinine 125.0 mg/dL (0.1-20.0) H 01/12/20 13:01 Urine Sodium 127 mmol/L 01/12/20 13:01 Urine Total Protein 31 mg/dL (5-11.8) H 01/12/20 13:01 Salicylates < 0.3 mg/dL (2.8-20.0) L 01/12/20 03:07 Urine Opiates Screen Presumptive negative 01/12/20 Unknown Urine Methadone Screen Presumptive negative 01/12/20 Unknown Acetaminophen 5.0 ug/mL (10.0-30.0) L 01/12/20 03:07 Ur Barbiturates Screen Presumptive negative 01/12/20 Unknown Ur Phencyclidine Scrn Presumptive negative 01/12/20 Unknown Ur Amphetamines Screen Presumptive negative 01/12/20 Unknown U Benzodiazepines Scrn Presumptive negative 01/12/20 Unknown Urine Cocaine Screen Presumptive negative 01/12/20 Unknown U Marijuana (THC) Screen Presumptive negative 01/12/20 Unknown Drugs of Abuse Note Disclamer 01/12/20 Unknown Plasma/Serum Alcohol < 0.01 % (0-0.07) 01/12/20 03:07 Microbiology: Microbiology 01/12/20 08:25 Nares - Left MRSA Culture - Preliminary Khan/IV: Voiding Method External Female Catheter IV Catheter Type [Right Distal INT / Saline Lock Port Antecubital] Active Medications - Current Medications Current Medications: Generic Name Dose Route Start Last Admin Trade Name Freq PRN Reason Stop Dose Admin Acetaminophen 650 mg 01/12/20 05:22 Tylenol PO Q4H PRN Pain MILD(1-3)/Fever >100.5/BOO Dextrose 50 ml 01/12/20 05:22 D50w (25gm) Syringe IV Q30MIN PRN Hypoglycemia Protocol Insulin Human Lispro 0 unit 01/12/20 07:30 01/13/20 21:28 Humalog SUB-Q Not Given ACHS LEONARD Protocol Magnesium Hydroxide 30 ml 01/12/20 05:22 Milk Of Magnesia PO Q4H PRN Constipation Morphine Sulfate 2 mg 01/12/20 05:22 Morphine IV Q4H PRN Pain, Moderate (4-6) Ondansetron HCl 4 mg 01/12/20 05:22 Zofran IV Q8H PRN Nausea And Vomiting Sodium Chloride 10 ml 01/12/20 10:00 01/13/20 21:27 Sodium Chloride Flush Syringe 10 Ml IV 10 ml BID LEONARD Administration Sodium Chloride 10 ml 01/12/20 05:22 Sodium Chloride Flush Syringe 10 Ml IV PRN PRN LINE FLUSH Nutrition/Malnutrition Assess - Dietary Evaluation Nutrition/Malnutrition Findings: Nutrition Notes Start: 01/12/20 10:30 Freq: Status: Active Protocol: Document 01/12/20 10:34 LP (Rec: 01/12/20 10:38 LP [id number]) Nutrition Notes Need for Assessment generated from: MD Order Initial or Follow up Assessment Current Diagnosis Acute Kidney Injury,Diabetes, Hypertension Other Pertinent Diagnosis CA, AMS Current Diet Cardiac/Consistent CHO Labs/Tests BUN 22 Cr 1.7 Pertinent Medications NS at 125ml/hr Height 5 ft 6 in Weight 114.305 kg [place] Body Weight (kg) 59.09 BMI 40.6 Weight Status Morbidly Obese Subjective/Other Information Consult for diet education. Pt not appropriate for diet education. Pt noted not eating for 5 days. Burn Absent Trauma Absent GI Symptoms None Current % PO Negligible Minimum of two criteria No Energy Intake (severe) < or equal to 50% Estimated Energy Requirement > or equal to 5 days #1 Nutrition Diagnosis Inadequate oral intake Etiology AMS As Evidenced by Signs and Symptoms Pt noted not eating for 5 days Is patient on ventilator? No Is Patient Ambulatory and/or Out of Bed No REE-([place]-confined to bed) 1967.976 Kcal/Kg value to use for calculation 12 Approximate Energy Requirements Using 1372 kcal/Kg Calculation Used for Recommendations Kcal/kg Additional Notes Protein needs are 87-104g (1-1 .2g/kg Adj wt 86.5kg) Fluid needs are 1ml/kcal Nutrition Intervention Change Diet Order: Continue Add Supplement/Snack (indicate name/kcal Glucerna TID /protein ) Provides kCal: 660 Provides Protein (gm) 30 Goal #1 Meet at least 80% of kcal and protein needs Anticipated Discharge Needs: Cardiac/Consistent CHO with ONS as needed Follow-Up By: 01/16/20 Additional Comments Follow for intakes and ONS tolerance
--- NOTE | 2020-01-14 12:15 | Progress Note ---
Assessment and Plan - Patient Problems (1) Acute kidney injury Current Visit: Yes Status: Acute Plan to address problem: acute kidney injury most likely d/t pre-renal azotemia in the setting of poor po intake. renal function normalized. Stable for discharge from renal stand point (2) Altered mental state Current Visit: Yes Status: Acute Qualifiers: Altered mental status type: unspecified Qualified Code(s): R41.82 - Altered mental status, unspecified Plan to address problem: improved (3) Diabetes mellitus Current Visit: Yes Status: Acute Plan to address problem: diabetes management as per primary attending (4) Hypertension Current Visit: Yes Status: Acute Plan to address problem: BP controlled off meds Subjective Date of service: 01/14/20 Principal diagnosis: MARISOL Interval history: patient awake, alert, in no acute distress Objective - Vital Signs Vital signs: Vital Signs - 12hr 01/14/20 01/14/20 01/14/20 04:47 05:00 07:37 Temperature 98.0 F 97.8 F Pulse Rate 70 70 68 Respiratory 18 18 Rate Blood Pressure 155/68 148/61 O2 Sat by Pulse 95 98 Oximetry 01/14/20 10:00 Temperature Pulse Rate Respiratory 18 Rate Blood Pressure O2 Sat by Pulse 100 Oximetry - General Appearance General appearance: well-developed, well-nourished, appears stated age EENT: ATNC, PERRL, mucous membranes moist Neck: no JVD Respiratory: Present: Clear to Ascultation Cardiology: regular, S1S2 Gastrointestinal: normoactive bowel sounds Integumentary: no rash Neurologic: no focal deficit, alert and oriented x3, strength 5/5, CN 3-12 intact Psychiatric: mood/affect appropriate, cooperative - Lab 01/12/20 03:07 01/14/20 04:27 Most recent lab results Calcium 7.4 mg/dL (8.4-10.2) L 01/14/20 04:27 Urine Creatinine 125.0 mg/dL (0.1-20.0) H 01/12/20 13:01 Urine Sodium 127 mmol/L 01/12/20 13:01 Urine Total Protein 31 mg/dL (5-11.8) H 01/12/20 13:01 Medications & Allergies - Medications Allergies/Adverse Reactions: Allergies No Known Allergies Allergy (Verified 01/12/20 05:37) Home Medications: Home Medications Medication Instructions Recorded Confirmed Last Taken Type No Known Home Medications [No 01/12/20 01/12/20 Unknown History Reported Home Medications] Active Medications: Generic Name Dose Route Start Last Admin Trade Name Aurea PRN Reason Stop Dose Admin Acetaminophen 650 mg 01/12/20 05:22 Tylenol PO Q4H PRN Pain MILD(1-3)/Fever >100.5/BOO Dextrose 50 ml 01/12/20 05:22 D50w (25gm) Syringe IV Q30MIN PRN Hypoglycemia Protocol Insulin Human Lispro 0 unit 01/12/20 07:30 01/14/20 08:30 Humalog SUB-Q Not Given ACHS [facility] Protocol Magnesium Hydroxide 30 ml 01/12/20 05:22 Milk Of Magnesia PO Q4H PRN Constipation Morphine Sulfate 2 mg 01/12/20 05:22 Morphine IV Q4H PRN Pain, Moderate (4-6) Ondansetron HCl 4 mg 01/12/20 05:22 Zofran IV Q8H PRN Nausea And Vomiting Sodium Chloride 10 ml 01/12/20 10:00 01/14/20 09:44 Sodium Chloride Flush Syringe 10 Ml IV 10 ml BID LEONARD Administration Sodium Chloride 10 ml 01/12/20 05:22 Sodium Chloride Flush Syringe 10 Ml IV PRN PRN LINE FLUSH
[2020-01-15] MEDS: INSULIN LISPRO 100 UNIT/ML VIAL 3 mL SUB-Q SCH ×4 (08:00→21:59)
[2020-01-15 08:18] LABS: BUN/Creatinine Ratio 12; Blood Urea Nitrogen 11 mg/dL (7-17); Calcium 7.6 mg/dL (8.4-10.2); Hemolysis Index 7
--- NOTE | 2020-01-15 10:04 | Progress Note ---
Assessment and Plan Assessment and plan: (1) Altered mental state Current Visit: Yes Status: Acute Qualifiers: Altered mental status type: unspecified Qualified Code(s): R41.82 - Altered mental status, unspecified Plan to address problem: Etiology is unclear. Will monitor mental status. CT head is normal Neurology consulted yesterday by my colleague Patient is alert and oriented PT evaluation (2) Diabetes mellitus Current Visit: Yes Status: Acute Plan to address problem: We will monitor Accu-Cheks. (3) Hypertension Current Visit: Yes Status: Acute Plan to address problem: We will resume routine home medications on the monitor vital signs closely. (4) Renal failure Current Visit: Yes Status: Acute Qualifiers: Renal failure chronicity: acute Acute renal failure type: unspecified Qualified Code(s): N17.9 - Acute kidney failure, unspecified Plan to address problem: Patient placed on IV fluid. Will monitor BUN and creatinine. Baseline BUN and creatinine is unknown. We will place consult to nephrology for evaluation. 01/13/2020 -Patient's creatinine improved -Patient has hyperkalemia and Kayexalate was given (5) DVT prophylaxis Current Visit: Yes Status: Acute Plan to address problem: Patient placed on subcutaneous heparin. (6) Full code status Current Visit: Yes Status: Acute 01/14/2020 -MARISOL resolved, hyperkalemia resolved. Altered mental status resolved. Patient is weak and states she is feeling sick, evaluated by physical therapy and recommend subacute rehab. We will put case management consult. 01/15/2020 -MARISOL resolved, hyperkalemia resolved. Patient was alert and oriented. It evaluated and recommended subacute rehab. History Interval history: Patient was seen and evaluated this morning Patient did not have any complaints Hospitalist Physical - Physical exam Narrative exam: Not in cardiopulmonary distress. The patient is obese. Vital signs as documented. Head exam is unremarkable. No scleral icterus . Neck is without jugular venous distension, thyromegaly, or carotid bruits. Lungs are clear to auscultation. Cardiac exam reveals regular rate and Rhythm. Abdominal exam reveals normal bowel sounds, nontender, no organomegaly. Extremities are nonedematous and both femoral and pedal pulses are normal. 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 No focal weakness. - Constitutional Vitals: Temp Pulse Resp BP Pulse Ox 99.2 F 77 20 158/63 95 01/15/20 03:38 01/15/20 03:38 01/15/20 03:38 01/15/20 03:38 01/15/20 03:38 General appearance: Present: no acute distress, well-nourished HEART Score - HEART Score Troponin: Troponin T < 0.010 ng/mL (0.00-0.029) 01/12/20 05:30 Results - Labs CBC & Chem 7: 01/12/20 03:07 01/15/20 07:32 Labs: Laboratory Last Values WBC 2.6 K/mm3 (4.5-11.0) L 01/12/20 03:07 RBC 3.53 M/mm3 (3.65-5.03) L 01/12/20 03:07 Hgb 11.0 gm/dl (10.1-14.3) 01/12/20 03:07 Hct 33.4 % (30.3-42.9) 01/12/20 03:07 MCV 95 fl (79-97) 01/12/20 03:07 MCH 31 pg (28-32) 01/12/20 03:07 MCHC 33 % (30-34) 01/12/20 03:07 RDW 15.3 % (13.2-15.2) H 01/12/20 03:07 Plt Count 38 K/mm3 (140-440) L 01/12/20 03:07 Lymph % (Auto) 21.0 % (13.4-35.0) 01/12/20 03:07 [place] % (Auto) 6.1 % (0.0-7.3) 01/12/20 03:07 Eos % (Auto) 0.7 % (0.0-4.3) 01/12/20 03:07 Baso % (Auto) 0.3 % (0.0-1.8) 01/12/20 03:07 Lymph # (Auto) 0.5 K/mm3 (1.2-5.4) L 01/12/20 03:07 [place] # (Auto) 0.2 K/mm3 (0.0-0.8) 01/12/20 03:07 Eos # (Auto) 0.0 K/mm3 (0.0-0.4) 01/12/20 03:07 Baso # (Auto) 0.0 K/mm3 (0.0-0.1) 01/12/20 03:07 Seg Neutrophils % 71.9 % (40.0-70.0) H 01/12/20 03:07 Seg Neutrophils # 1.8 K/mm3 (1.8-7.7) 01/12/20 03:07 Sodium 139 mmol/L (137-145) 01/15/20 07:32 Potassium 4.1 mmol/L (3.6-5.0) 01/15/20 07:32 Chloride 106.4 mmol/L (98-107) 01/15/20 07:32 Carbon Dioxide 23 mmol/L (22-30) 01/15/20 07:32 Anion Gap 14 mmol/L 01/15/20 07:32 BUN 11 mg/dL (7-17) 01/15/20 07:32 Creatinine 0.9 mg/dL (0.6-1.2) 01/15/20 07:32 Estimated GFR > 60 ml/min 01/15/20 07:32 BUN/Creatinine Ratio 12 % 01/15/20 07:32 Glucose 116 mg/dL (65-100) H 01/15/20 07:32 POC Glucose 108 mg/dL (70-105) H 01/15/20 07:30 Lactic Acid 1.10 mmol/L (0.7-2.0) 01/12/20 03:07 Calcium 7.6 mg/dL (8.4-10.2) L 01/15/20 07:32 Total Bilirubin 0.30 mg/dL (0.1-1.2) 01/12/20 03:07 AST 21 units/L (5-40) 01/12/20 03:07 ALT 11 units/L (7-56) 01/12/20 03:07 Alkaline Phosphatase 33 units/L (35-129) L 01/12/20 03:07 Ammonia 11.0 umol/L (25-60) L 01/12/20 03:07 Total Creatine Kinase 74 units/L (30-135) 01/12/20 03:07 Troponin T < 0.010 ng/mL (0.00-0.029) 01/12/20 05:30 Total Protein 6.0 g/dL (6.3-8.2) L 01/12/20 03:07 Albumin 3.4 g/dL (3.9-5) L 01/12/20 03:07 Albumin/Globulin Ratio 1.3 % 01/12/20 03:07 Urine Color Jaycee (Yellow) 01/12/20 Unknown Urine Turbidity Clear (Clear) 01/12/20 Unknown Urine pH 5.0 (5.0-7.0) 01/12/20 Unknown Ur Specific [place] 1.020 (1.003-1.030) 01/12/20 Unknown Urine Protein 30 mg/dl mg/dL (Negative) 01/12/20 Unknown Urine Glucose (UA) Neg mg/dL (Negative) 01/12/20 Unknown Urine Ketones Neg mg/dL (Negative) 01/12/20 Unknown Urine Blood Neg (Negative) 01/12/20 Unknown Urine Nitrite Neg (Negative) 01/12/20 Unknown Urine Bilirubin Neg (Negative) 01/12/20 Unknown Urine Urobilinogen < 2.0 mg/dL (<2.0) 01/12/20 Unknown Ur Leukocyte Esterase Neg (Negative) 01/12/20 Unknown Urine WBC (Auto) 4.0 /HPF (0.0-6.0) 01/12/20 Unknown Urine RBC (Auto) 4.0 /HPF (0.0-6.0) 01/12/20 Unknown Urine Bacteria (Auto) 1+ /HPF (Negative) 01/12/20 Unknown Urine Mucus Few /HPF 01/12/20 Unknown Urine Creatinine 125.0 mg/dL (0.1-20.0) H 01/12/20 13:01 Urine Sodium 127 mmol/L 01/12/20 13:01 Urine Total Protein 31 mg/dL (5-11.8) H 01/12/20 13:01 Salicylates < 0.3 mg/dL (2.8-20.0) L 01/12/20 03:07 Urine Opiates Screen Presumptive negative 01/12/20 Unknown Urine Methadone Screen Presumptive negative 01/12/20 Unknown Acetaminophen 5.0 ug/mL (10.0-30.0) L 01/12/20 03:07 Ur Barbiturates Screen Presumptive negative 01/12/20 Unknown Ur Phencyclidine Scrn Presumptive negative 01/12/20 Unknown Ur Amphetamines Screen Presumptive negative 01/12/20 Unknown U Benzodiazepines Scrn Presumptive negative 01/12/20 Unknown Urine Cocaine Screen Presumptive negative 01/12/20 Unknown U Marijuana (THC) Screen Presumptive negative 01/12/20 Unknown Drugs of Abuse Note Disclamer 01/12/20 Unknown Plasma/Serum Alcohol < 0.01 % (0-0.07) 01/12/20 03:07 Microbiology: Microbiology 01/12/20 08:25 Nares - Left MRSA Culture - Final Khan/IV: Voiding Method External Female Catheter IV Catheter Type [Left Wrist] INT / Saline Lock IV Catheter Type [Right Distal INT / Saline Lock Port Antecubital] Active Medications - Current Medications Current Medications: Generic Name Dose Route Start Last Admin Trade Name Freq PRN Reason Stop Dose Admin Acetaminophen 650 mg 01/12/20 05:22 Tylenol PO Q4H PRN Pain MILD(1-3)/Fever >100.5/BOO Dextrose 50 ml 01/12/20 05:22 D50w (25gm) Syringe IV Q30MIN PRN Hypoglycemia Protocol Insulin Human Lispro 0 unit 01/12/20 07:30 01/14/20 22:03 Humalog SUB-Q 2 unit ACHS LEONARD Administration Protocol Magnesium Hydroxide 30 ml 01/12/20 05:22 Milk Of Magnesia PO Q4H PRN Constipation Morphine Sulfate 2 mg 01/12/20 05:22 Morphine IV Q4H PRN Pain, Moderate (4-6) Ondansetron HCl 4 mg 01/12/20 05:22 Zofran IV Q8H PRN Nausea And Vomiting Sodium Chloride 10 ml 01/12/20 10:00 01/14/20 22:07 Sodium Chloride Flush Syringe 10 Ml IV 10 ml BID LEONARD Administration Sodium Chloride 10 ml 01/12/20 05:22 Sodium Chloride Flush Syringe 10 Ml IV PRN PRN LINE FLUSH Nutrition/Malnutrition Assess - Dietary Evaluation Nutrition/Malnutrition Findings: Nutrition Notes Start: 01/12/20 10:30 Freq: Status: Active Protocol: Document 01/12/20 10:34 LP (Rec: 01/12/20 10:38 LP [email or web address]) Nutrition Notes Need for Assessment generated from: MD Order Initial or Follow up Assessment Current Diagnosis Acute Kidney Injury,Diabetes, Hypertension Other Pertinent Diagnosis CA, AMS Current Diet Cardiac/Consistent CHO Labs/Tests BUN 22 Cr 1.7 Pertinent Medications NS at 125ml/hr Height 5 ft 6 in Weight 114.305 kg [place] Body Weight (kg) 59.09 BMI 40.6 Weight Status Morbidly Obese Subjective/Other Information Consult for diet education. Pt not appropriate for diet education. Pt noted not eating for 5 days. Burn Absent Trauma Absent GI Symptoms None Current % PO Negligible Minimum of two criteria No Energy Intake (severe) < or equal to 50% Estimated Energy Requirement > or equal to 5 days #1 Nutrition Diagnosis Inadequate oral intake Etiology AMS As Evidenced by Signs and Symptoms Pt noted not eating for 5 days Is patient on ventilator? No Is Patient Ambulatory and/or Out of Bed No REE-([place]-St. Jeor-confined to bed) [phone] Kcal/Kg value to use for calculation 12 Approximate Energy Requirements Using 1372 kcal/Kg Calculation Used for Recommendations Kcal/kg Additional Notes Protein needs are 87-104g (1-1 .2g/kg Adj wt 86.5kg) Fluid needs are 1ml/kcal Nutrition Intervention Change Diet Order: Continue Add Supplement/Snack (indicate name/kcal Glucerna TID /protein ) Provides kCal: 660 Provides Protein (gm) 30 Goal #1 Meet at least 80% of kcal and protein needs Anticipated Discharge Needs: Cardiac/Consistent CHO with ONS as needed Follow-Up By: 01/16/20 Additional Comments Follow for intakes and ONS tolerance
--- NOTE | 2020-01-15 10:57 | Progress Note ---
Assessment and Plan - Patient Problems (1) Acute kidney injury Current Visit: Yes Status: Acute Plan to address problem: acute kidney injury most likely d/t pre-renal azotemia in the setting of poor po intake. renal function normalized. Stable for discharge from renal stand point (2) Altered mental state Current Visit: Yes Status: Acute Qualifiers: Altered mental status type: unspecified Qualified Code(s): R41.82 - Altered mental status, unspecified Plan to address problem: improved (3) Diabetes mellitus Current Visit: Yes Status: Acute Plan to address problem: diabetes management as per primary attending (4) Hypertension Current Visit: Yes Status: Acute Plan to address problem: BP controlled off meds Subjective Date of service: 01/15/20 Principal diagnosis: MARISOL Interval history: patient awake, alert, in no acute distress Objective - Vital Signs Vital signs: Vital Signs - 12hr 01/14/20 01/15/20 01/15/20 23:50 03:18 03:38 Temperature 98.1 F 99.2 F Pulse Rate 78 78 77 Respiratory 20 20 Rate Blood Pressure 156/56 158/63 O2 Sat by Pulse 97 95 Oximetry - General Appearance General appearance: well-developed, well-nourished, appears stated age EENT: ATNC, PERRL, mucous membranes moist Neck: no JVD Respiratory: Present: Clear to Ascultation Cardiology: regular, S1S2 Gastrointestinal: normoactive bowel sounds Integumentary: no rash, other (no edema ) Neurologic: no focal deficit, alert and oriented x3, strength 5/5, CN 3-12 intact Psychiatric: mood/affect appropriate, cooperative - Lab 01/12/20 03:07 01/15/20 07:32 Most recent lab results Calcium 7.6 mg/dL (8.4-10.2) L 01/15/20 07:32 Urine Creatinine 125.0 mg/dL (0.1-20.0) H 01/12/20 13:01 Urine Sodium 127 mmol/L 01/12/20 13:01 Urine Total Protein 31 mg/dL (5-11.8) H 01/12/20 13:01 Medications & Allergies - Medications Allergies/Adverse Reactions: Allergies No Known Allergies Allergy (Verified 01/12/20 05:37) Home Medications: Home Medications Medication Instructions Recorded Confirmed Last Taken Type No Known Home Medications [No 01/12/20 01/12/20 Unknown History Reported Home Medications] Active Medications: Generic Name Dose Route Start Last Admin Trade Name Freq PRN Reason Stop Dose Admin Acetaminophen 650 mg 01/12/20 05:22 Tylenol PO Q4H PRN Pain MILD(1-3)/Fever >100.5/BOO Dextrose 50 ml 01/12/20 05:22 D50w (25gm) Syringe IV Q30MIN PRN Hypoglycemia Protocol Insulin Human Lispro 0 unit 01/12/20 07:30 01/14/20 22:03 Humalog SUB-Q 2 unit ACHS LEONARD Administration Protocol Magnesium Hydroxide 30 ml 01/12/20 05:22 Milk Of Magnesia PO Q4H PRN Constipation Morphine Sulfate 2 mg 01/12/20 05:22 Morphine IV Q4H PRN Pain, Moderate (4-6) Ondansetron HCl 4 mg 01/12/20 05:22 Zofran IV Q8H PRN Nausea And Vomiting Sodium Chloride 10 ml 01/12/20 10:00 01/14/20 22:07 Sodium Chloride Flush Syringe 10 Ml IV 10 ml BID LEONARD Administration Sodium Chloride 10 ml 01/12/20 05:22 Sodium Chloride Flush Syringe 10 Ml IV PRN PRN LINE FLUSH
[2020-01-15] MEDS: MORPHINE 2 MG/1 ML INJ IV PRN (22:03)
[2020-01-16] MEDS: INSULIN LISPRO 100 UNIT/ML VIAL 3 mL SUB-Q SCH ×4 (08:04→22:21)
--- NOTE | 2020-01-16 09:33 | Progress Note ---
Assessment and Plan - Patient Problems (1) Acute kidney injury Current Visit: Yes Status: Acute Plan to address problem: acute kidney injury most likely d/t pre-renal azotemia in the setting of poor po intake. renal function normalized. Stable for discharge from renal stand point (2) Altered mental state Current Visit: Yes Status: Acute Qualifiers: Altered mental status type: unspecified Qualified Code(s): R41.82 - Altered mental status, unspecified Plan to address problem: improved (3) Diabetes mellitus Current Visit: Yes Status: Acute Plan to address problem: diabetes management as per primary attending (4) Hypertension Current Visit: Yes Status: Acute Plan to address problem: BP controlled off meds Subjective Date of service: 01/16/20 Principal diagnosis: MARISOL Interval history: patient awake, alert, in no acute distress Objective - Vital Signs Vital signs: Vital Signs - 12hr 01/15/20 01/16/20 01/16/20 23:48 00:16 03:56 Temperature 99.1 F 98.7 F Pulse Rate 78 76 81 Respiratory 18 18 Rate Blood Pressure 162/77 153/61 O2 Sat by Pulse 94 92 Oximetry 01/16/20 08:04 Temperature 99.5 F Pulse Rate 89 Respiratory 18 Rate Blood Pressure 156/61 O2 Sat by Pulse 95 Oximetry - General Appearance General appearance: well-developed, well-nourished, appears stated age EENT: ATNC, PERRL, mucous membranes moist Neck: no JVD Respiratory: Present: Clear to Ascultation Cardiology: regular, S1S2 Gastrointestinal: normoactive bowel sounds Integumentary: no rash, other (no edema ) Neurologic: no focal deficit, alert and oriented x3, strength 5/5, CN 3-12 intact Psychiatric: mood/affect appropriate, cooperative - Lab 01/12/20 03:07 01/15/20 07:32 Most recent lab results Calcium 7.6 mg/dL (8.4-10.2) L 01/15/20 07:32 Urine Creatinine 125.0 mg/dL (0.1-20.0) H 01/12/20 13:01 Urine Sodium 127 mmol/L 01/12/20 13:01 Urine Total Protein 31 mg/dL (5-11.8) H 01/12/20 13:01 Medications & Allergies - Medications Allergies/Adverse Reactions: Allergies No Known Allergies Allergy (Verified 01/12/20 05:37) Home Medications: Home Medications Medication Instructions Recorded Confirmed Last Taken Type No Known Home Medications [No 01/12/20 01/12/20 Unknown History Reported Home Medications] Active Medications: Generic Name Dose Route Start Last Admin Trade Name Freq PRN Reason Stop Dose Admin Acetaminophen 650 mg 01/12/20 05:22 Tylenol PO Q4H PRN Pain MILD(1-3)/Fever >100.5/BOO Dextrose 50 ml 01/12/20 05:22 D50w (25gm) Syringe IV Q30MIN PRN Hypoglycemia Protocol Insulin Human Lispro 0 unit 01/12/20 07:30 01/15/20 21:59 Humalog SUB-Q 2 unit ACHS LEONARD Administration Protocol Magnesium Hydroxide 30 ml 01/12/20 05:22 Milk Of Magnesia PO Q4H PRN Constipation Morphine Sulfate 2 mg 01/12/20 05:22 01/15/20 22:03 Morphine IV 2 mg Q4H PRN Administration Pain, Moderate (4-6) Ondansetron HCl 4 mg 01/12/20 05:22 Zofran IV Q8H PRN Nausea And Vomiting Sodium Chloride 10 ml 01/12/20 10:00 01/15/20 22:00 Sodium Chloride Flush Syringe 10 Ml IV 10 ml BID LEONARD Administration Sodium Chloride 10 ml 01/12/20 05:22 Sodium Chloride Flush Syringe 10 Ml IV PRN PRN LINE FLUSH
--- NOTE | 2020-01-16 10:44 | Progress Note ---
Assessment and Plan Assessment and plan: -- Altered mental state/acute metabolic encephalopathy Current Visit: Yes Status: Acute Plan to address problem: Etiology is unclear. Will monitor mental status. CT head is normal Neurology consulted yesterday by my colleague Today patient is alert and oriented PT evaluation --Type II diabetes mellitus Current Visit: Yes Status: Acute Plan to address problem: We will monitor Accu-Cheks. Sliding scale coverage ADA diet and insulin as needed --Hypertension Current Visit: Yes Status: Acute Plan to address problem: We will resume routine home medications on the monitor vital signs closely. --Acute renal failure present on admission; Current Visit: Yes Status: Acute Plan to address problem: Vasomotor nephropathy ,patient placed on IV fluid. Resolved, closely monitor renal function 01/13/2020 -Patient's creatinine improved -Patient has hyperkalemia and Kayexalate was given --DVT prophylaxis Current Visit: Yes Status: Acute Plan to address problem: Patient placed on subcutaneous heparin. --Full code status Current Visit: Yes Status: Acute Awaiting placement DC planning per case management 01/14/2020 -MARISOL resolved, hyperkalemia resolved. Altered mental status resolved. Patient is weak and states she is feeling sick, evaluated by physical therapy and [facility]. We will put case management consult. 01/15/2020 -MARISOL resolved, hyperkalemia resolved. Patient was alert and oriented. It evaluated and recommended subacute rehab. History Interval history: I have seen and examined the patient at the bedside Patient's chart and medications reviewed Patient feels slightly better vital signs noted Awaiting placement Hospitalist Physical - Constitutional Vitals: Temp Pulse Resp BP Pulse Ox 99.5 F 89 18 156/61 95 01/16/20 08:04 01/16/20 08:04 01/16/20 08:04 01/16/20 08:04 01/16/20 08:04 General appearance: Present: no acute distress, well-nourished, obese (Morbidly obese) - EENT Eyes: Present: PERRL, EOM intact - Neck Neck: Present: supple, normal ROM - Respiratory Respiratory effort: normal Respiratory: bilateral: diminished, negative: rales, rhonchi, wheezing - Cardiovascular Rhythm: regular Heart Sounds: Present: S1 & S2 - Extremities Extremities: no ischemia, No edema - Abdominal General gastrointestinal: soft, non-tender, non-distended, normal bowel sounds - Integumentary Integumentary: Present: clear, warm - Psychiatric Psychiatric: appropriate mood/affect, cooperative - Neurologic Neurologic: moves all extremities HEART Score - HEART Score Troponin: Troponin T < 0.010 ng/mL (0.00-0.029) 01/12/20 05:30 Results - Labs CBC & Chem 7: 01/12/20 03:07 01/15/20 07:32 Labs: Laboratory Last Values WBC 2.6 K/mm3 (4.5-11.0) L 01/12/20 03:07 RBC 3.53 M/mm3 (3.65-5.03) L 01/12/20 03:07 Hgb 11.0 gm/dl (10.1-14.3) 01/12/20 03:07 Hct 33.4 % (30.3-42.9) 01/12/20 03:07 MCV 95 fl (79-97) 01/12/20 03:07 MCH 31 pg (28-32) 01/12/20 03:07 MCHC 33 % (30-34) 01/12/20 03:07 RDW 15.3 % (13.2-15.2) H 01/12/20 03:07 Plt Count 38 K/mm3 (140-440) L 01/12/20 03:07 Lymph % (Auto) 21.0 % (13.4-35.0) 01/12/20 03:07 [place] % (Auto) 6.1 % (0.0-7.3) 01/12/20 03:07 Eos % (Auto) 0.7 % (0.0-4.3) 01/12/20 03:07 Baso % (Auto) 0.3 % (0.0-1.8) 01/12/20 03:07 Lymph # (Auto) 0.5 K/mm3 (1.2-5.4) L 01/12/20 03:07 [place] # (Auto) 0.2 K/mm3 (0.0-0.8) 01/12/20 03:07 Eos # (Auto) 0.0 K/mm3 (0.0-0.4) 01/12/20 03:07 Baso # (Auto) 0.0 K/mm3 (0.0-0.1) 01/12/20 03:07 Seg Neutrophils % 71.9 % (40.0-70.0) H 01/12/20 03:07 Seg Neutrophils # 1.8 K/mm3 (1.8-7.7) 01/12/20 03:07 Sodium 139 mmol/L (137-145) 01/15/20 07:32 Potassium 4.1 mmol/L (3.6-5.0) 01/15/20 07:32 Chloride 106.4 mmol/L (98-107) 01/15/20 07:32 Carbon Dioxide 23 mmol/L (22-30) 01/15/20 07:32 Anion Gap 14 mmol/L 01/15/20 07:32 BUN 11 mg/dL (7-17) 01/15/20 07:32 Creatinine 0.9 mg/dL (0.6-1.2) 01/15/20 07:32 Estimated GFR > 60 ml/min 01/15/20 07:32 BUN/Creatinine Ratio 12 % 01/15/20 07:32 Glucose 116 mg/dL (65-100) H 01/15/20 07:32 POC Glucose 96 mg/dL (70-105) 01/16/20 08:03 Lactic Acid 1.10 mmol/L (0.7-2.0) 01/12/20 03:07 Calcium 7.6 mg/dL (8.4-10.2) L 01/15/20 07:32 Total Bilirubin 0.30 mg/dL (0.1-1.2) 01/12/20 03:07 AST 21 units/L (5-40) 01/12/20 03:07 ALT 11 units/L (7-56) 01/12/20 03:07 Alkaline Phosphatase 33 units/L (35-129) L 01/12/20 03:07 Ammonia 11.0 umol/L (25-60) L 01/12/20 03:07 Total Creatine Kinase 74 units/L (30-135) 01/12/20 03:07 Troponin T < 0.010 ng/mL (0.00-0.029) 01/12/20 05:30 Total Protein 6.0 g/dL (6.3-8.2) L 01/12/20 03:07 Albumin 3.4 g/dL (3.9-5) L 01/12/20 03:07 Albumin/Globulin Ratio 1.3 % 01/12/20 03:07 Urine Color Jaycee (Yellow) 01/12/20 Unknown Urine Turbidity Clear (Clear) 01/12/20 Unknown Urine pH 5.0 (5.0-7.0) 01/12/20 Unknown Ur Specific [place] 1.020 (1.003-1.030) 01/12/20 Unknown Urine Protein 30 mg/dl mg/dL (Negative) 01/12/20 Unknown Urine Glucose (UA) Neg mg/dL (Negative) 01/12/20 Unknown Urine Ketones Neg mg/dL (Negative) 01/12/20 Unknown Urine Blood Neg (Negative) 01/12/20 Unknown Urine Nitrite Neg (Negative) 01/12/20 Unknown Urine Bilirubin Neg (Negative) 01/12/20 Unknown Urine Urobilinogen < 2.0 mg/dL (<2.0) 01/12/20 Unknown Ur Leukocyte Esterase Neg (Negative) 01/12/20 Unknown Urine WBC (Auto) 4.0 /HPF (0.0-6.0) 01/12/20 Unknown Urine RBC (Auto) 4.0 /HPF (0.0-6.0) 01/12/20 Unknown Urine Bacteria (Auto) 1+ /HPF (Negative) 01/12/20 Unknown Urine Mucus Few /HPF 01/12/20 Unknown Urine Creatinine 125.0 mg/dL (0.1-20.0) H 01/12/20 13:01 Urine Sodium 127 mmol/L 01/12/20 13:01 Urine Total Protein 31 mg/dL (5-11.8) H 01/12/20 13:01 Salicylates < 0.3 mg/dL (2.8-20.0) L 01/12/20 03:07 Urine Opiates Screen Presumptive negative 01/12/20 Unknown Urine Methadone Screen Presumptive negative 01/12/20 Unknown Acetaminophen 5.0 ug/mL (10.0-30.0) L 01/12/20 03:07 Ur Barbiturates Screen Presumptive negative 01/12/20 Unknown Ur Phencyclidine Scrn Presumptive negative 01/12/20 Unknown Ur Amphetamines Screen Presumptive negative 01/12/20 Unknown U Benzodiazepines Scrn Presumptive negative 01/12/20 Unknown Urine Cocaine Screen Presumptive negative 01/12/20 Unknown U Marijuana (THC) Screen Presumptive negative 01/12/20 Unknown Drugs of Abuse Note Disclamer 01/12/20 Unknown Plasma/Serum Alcohol < 0.01 % (0-0.07) 01/12/20 03:07 Khan/IV: Voiding Method External Female Catheter IV Catheter Type [Left Wrist] INT / Saline Lock IV Catheter Type [Right Distal INT / Saline Lock Port Antecubital] Active Medications - Current Medications Current Medications: Generic Name Dose Route Start Last Admin Trade Name Freq PRN Reason Stop Dose Admin Acetaminophen 650 mg 01/12/20 05:22 Tylenol PO Q4H PRN Pain MILD(1-3)/Fever >100.5/BOO Dextrose 50 ml 01/12/20 05:22 D50w (25gm) Syringe IV Q30MIN PRN Hypoglycemia Protocol Insulin Human Lispro 0 unit 01/12/20 07:30 01/15/20 21:59 Humalog SUB-Q 2 unit ACHS LEONARD Administration Protocol Magnesium Hydroxide 30 ml 01/12/20 05:22 Milk Of Magnesia PO Q4H PRN Constipation Morphine Sulfate 2 mg 01/12/20 05:22 01/15/20 22:03 Morphine IV 2 mg Q4H PRN Administration Pain, Moderate (4-6) Ondansetron HCl 4 mg 01/12/20 05:22 Zofran IV Q8H PRN Nausea And Vomiting Sodium Chloride 10 ml 01/12/20 10:00 01/15/20 22:00 Sodium Chloride Flush Syringe 10 Ml IV 10 ml BID LEONARD Administration Sodium Chloride 10 ml 01/12/20 05:22 Sodium Chloride Flush Syringe 10 Ml IV PRN PRN LINE FLUSH Nutrition/Malnutrition Assess - Dietary Evaluation Nutrition/Malnutrition Findings: Nutrition Notes Start: 01/12/20 10:30 Freq: Status: Active Protocol: Document 01/12/20 10:34 LP (Rec: 01/12/20 10:38 LP [id number]) Nutrition Notes Need for Assessment generated from: MD Order Initial or Follow up Assessment Current Diagnosis Acute Kidney Injury,Diabetes, Hypertension Other Pertinent Diagnosis CA, AMS Current Diet Cardiac/Consistent CHO Labs/Tests BUN 22 Cr 1.7 Pertinent Medications NS at 125ml/hr Height 5 ft 6 in Weight 114.305 kg [place] Body Weight (kg) 59.09 BMI 40.6 Weight Status Morbidly Obese Subjective/Other Information Consult for diet education. Pt not appropriate for diet education. Pt noted not eating for 5 days. Burn Absent Trauma Absent GI Symptoms None Current % PO Negligible Minimum of two criteria No Energy Intake (severe) < or equal to 50% Estimated Energy Requirement > or equal to 5 days #1 Nutrition Diagnosis Inadequate oral intake Etiology AMS As Evidenced by Signs and Symptoms Pt noted not eating for 5 days Is patient on ventilator? No Is Patient Ambulatory and/or Out of Bed No REE-(Runnels-St. Jeor-confined to bed) 1967.976 Kcal/Kg value to use for calculation 12 Approximate Energy Requirements Using 1372 kcal/Kg Calculation Used for Recommendations Kcal/kg Additional Notes Protein needs are 87-104g (1-1 .2g/kg Adj wt 86.5kg) Fluid needs are 1ml/kcal Nutrition Intervention Change Diet Order: Continue Add Supplement/Snack (indicate name/kcal Glucerna TID /protein ) Provides kCal: 660 Provides Protein (gm) 30 Goal #1 Meet at least 80% of kcal and protein needs Anticipated Discharge Needs: Cardiac/Consistent CHO with ONS as needed Follow-Up By: 01/16/20 Additional Comments Follow for intakes and ONS tolerance
--- NOTE | 2020-01-16 17:03 | Consultation ---
History of Present Illness Consult date: 01/16/20 Reason for Consult: change in mental status History of present illness: This is a comprehensive neurological consultation on Ms. Orin Pabon who is a very pleasant 80-year-old woman admitted with the symptoms of change in mental status. She does not provide any detailed history, this information has been obtained from her current chart. She does know that she is in the hospital but she does not follow all the commands. She is able to move both arms but has some limitations in her both legs. Her speech is normal. Her CT scan of the brain is unremarkable. Past History Past Medical History: diabetes, GERD, hypertension, other (Deporession,) Past Surgical History: No surgical history, Other (Ostomy placement) Social history: no significant social history, alcohol abuse Family history: no significant family history Medications and Allergies Allergies Allergy/AdvReac Type Severity Reaction Status Date / Time No Known Allergies Allergy Verified 01/12/20 05:37 Home Medications Medication Instructions Recorded Confirmed Last Taken Type No Known Home Medications [No 01/12/20 01/12/20 Unknown History Reported Home Medications] Active Meds: Active Medications Acetaminophen (Tylenol) 650 mg PO Q4H PRN PRN Reason: Pain MILD(1-3)/Fever >100.5/BOO Dextrose (D50w (25gm) Syringe) 50 ml IV Q30MIN PRN; Protocol PRN Reason: Hypoglycemia Insulin Human Lispro (Humalog) 0 unit SUB-Q ACHS [facility]; Protocol Last Admin: 01/15/20 21:59 Dose: 2 unit Documented by: Magnesium Hydroxide (Milk Of Magnesia) 30 ml PO Q4H PRN PRN Reason: Constipation Morphine Sulfate (Morphine) 2 mg IV Q4H PRN PRN Reason: Pain, Moderate (4-6) Last Admin: 01/15/20 22:03 Dose: 2 mg Documented by: Ondansetron HCl (Zofran) 4 mg IV Q8H PRN PRN Reason: Nausea And Vomiting Sodium Chloride (Sodium Chloride Flush Syringe 10 Ml) 10 ml IV BID [facility] Last Admin: 01/15/20 22:00 Dose: 10 ml Documented by: Sodium Chloride (Sodium Chloride Flush Syringe 10 Ml) 10 ml IV PRN PRN PRN Reason: LINE FLUSH Review of Systems All systems: negative (HPI) Physical Examination - Vital Signs Vital Signs: Vital Signs Pulse Resp Pulse Ox 86 23 100 01/12/20 02:11 01/12/20 02:11 01/12/20 02:11 - Physical Exam Narrative exam: limited examination Patient is awake, follow only 1 step, but she does not know the day of the month or year. Cranial nerve examination is Pupils are reacting, EOMI, no nystagmus Face is symmetrical Tongue is in midline Other cranial nerves are difficult to examine Motor: Able to move both arms well Unable to move/drops the right leg, able to keep left leg but drops before 5 seconds Babinski mute The rest of the neuro exam is difficult to examine. - Constitutional General appearance: comfortable - EENT EENT: Present: ATNC, PERRL, hearing intact, vision intact - Respiratory Respiratory: Present: chest non-tender, normal breath sounds, no respiratory distress - Cardiovascular Cardiovascular: Present: regular rate Extremities: Present: no peripheral edema bilatateraly - Gastrointestinal Gastrointestinal: Present: normoactive bowel sounds, soft, non-tender - Integumentary Integumentary: Present: normal Results - Laboratory Findings CBC and BMP: 01/12/20 03:07 01/15/20 07:32 Abnormal Lab Findings: Abnormal Labs 01/12/20 01/12/20 01/12/20 03:07 03:07 03:07 WBC 2.6 L RBC 3.53 L RDW 15.3 H Plt Count 38 L Lymph # (Auto) 0.5 L Seg Neutrophils % 71.9 H Potassium Chloride BUN 22 H Creatinine 1.7 H Glucose 125 H POC Glucose Calcium 7.4 L Alkaline Phosphatase 33 L Ammonia 11.0 L Total Protein 6.0 L Albumin 3.4 L Urine Creatinine Urine Total Protein Salicylates Acetaminophen 01/12/20 01/12/20 01/12/20 03:07 03:07 13:01 WBC RBC RDW Plt Count Lymph # (Auto) Seg Neutrophils % Potassium Chloride BUN Creatinine Glucose POC Glucose Calcium Alkaline Phosphatase Ammonia Total Protein Albumin Urine Creatinine 125.0 H Urine Total Protein 31 H Salicylates < 0.3 L Acetaminophen 5.0 L 01/12/20 01/12/20 01/13/20 15:37 21:17 10:30 WBC RBC RDW Plt Count Lymph # (Auto) Seg Neutrophils % Potassium 5.4 H Chloride 107.9 H BUN Creatinine Glucose 134 H POC Glucose 112 H 134 H Calcium 7.4 L Alkaline Phosphatase Ammonia Total Protein Albumin Urine Creatinine Urine Total Protein Salicylates Acetaminophen 01/13/20 01/13/20 01/13/20 11:57 16:23 21:13 WBC RBC RDW Plt Count Lymph # (Auto) Seg Neutrophils % Potassium Chloride BUN Creatinine Glucose POC Glucose 112 H 110 H 117 H Calcium Alkaline Phosphatase Ammonia Total Protein Albumin Urine Creatinine Urine Total Protein Salicylates Acetaminophen 01/14/20 01/14/20 01/14/20 04:27 11:18 15:53 WBC RBC RDW Plt Count Lymph # (Auto) Seg Neutrophils % Potassium Chloride BUN Creatinine Glucose POC Glucose 119 H 120 H Calcium 7.4 L Alkaline Phosphatase Ammonia Total Protein Albumin Urine Creatinine Urine Total Protein Salicylates Acetaminophen 01/14/20 01/15/20 01/15/20 21:58 07:30 07:32 WBC RBC RDW Plt Count Lymph # (Auto) Seg Neutrophils % Potassium Chloride BUN Creatinine Glucose 116 H POC Glucose 154 H 108 H Calcium 7.6 L Alkaline Phosphatase Ammonia Total Protein Albumin Urine Creatinine Urine Total Protein Salicylates Acetaminophen 01/15/20 01/15/20 01/15/20 12:18 16:26 21:27 WBC RBC RDW Plt Count Lymph # (Auto) Seg Neutrophils % Potassium Chloride BUN Creatinine Glucose POC Glucose 113 H 148 H 168 H Calcium Alkaline Phosphatase Ammonia Total Protein Albumin Urine Creatinine Urine Total Protein Salicylates Acetaminophen 01/16/20 11:58 WBC RBC RDW Plt Count Lymph # (Auto) Seg Neutrophils % Potassium Chloride BUN Creatinine Glucose POC Glucose 136 H Calcium Alkaline Phosphatase Ammonia Total Protein Albumin Urine Creatinine Urine Total Protein Salicylates Acetaminophen - Diagnostic Findings Additional findings: CT scan of the brain is unremarkable. Assessment and Plan - Patient Problems (1) Encephalopathy acute Current Visit: Yes Status: Acute Plan to address problem: Plan; 1) unclear if she has any lacunar stroke in the brain therefore she does not mov e her legs well, may be due to deconditioning or metabolic. Please order an MRI of brain without ANH to see if there is any intracranial abnormality 2) also please obtain an EEG just to make sure she does not have any subclinical seizures 3) seizure precautions 4) DVT prophylaxis Thank you very much for allowing us in the care of your patient. Please call us if you have any questions. Jeremy Stanley MD Tele-neurologist [phone]
[2020-01-17] MEDS: INSULIN LISPRO 100 UNIT/ML VIAL 3 mL SUB-Q SCH ×4 (07:03→22:50)
--- NOTE | 2020-01-17 11:33 | Progress Note ---
Assessment and Plan - Patient Problems (1) Acute kidney injury Current Visit: Yes Status: Acute Plan to address problem: acute kidney injury most likely d/t pre-renal azotemia in the setting of poor po intake. renal function normalized. will sign off for now (2) Altered mental state Current Visit: Yes Status: Acute Qualifiers: Altered mental status type: unspecified Qualified Code(s): R41.82 - Altered mental status, unspecified Plan to address problem: improved (3) Diabetes mellitus Current Visit: Yes Status: Acute Plan to address problem: diabetes management as per primary attending (4) Hypertension Current Visit: Yes Status: Acute Plan to address problem: BP controlled off meds Subjective Date of service: 01/17/20 Principal diagnosis: MARISOL Interval history: patient awake, alert, in no acute distress Objective - Vital Signs Vital signs: Vital Signs - 12hr 01/16/20 01/17/20 01/17/20 23:33 02:00 03:51 Temperature 98.0 F 98.0 F Pulse Rate 81 81 86 Respiratory 20 18 Rate Blood Pressure 148/59 157/64 O2 Sat by Pulse 97 92 Oximetry 01/17/20 01/17/20 07:50 09:08 Temperature 98.4 F Pulse Rate 80 89 Respiratory 18 Rate Blood Pressure 159/75 O2 Sat by Pulse 92 Oximetry - General Appearance General appearance: well-developed, well-nourished, appears stated age EENT: ATNC, PERRL, mucous membranes moist Neck: no JVD Respiratory: Present: Clear to Ascultation Cardiology: regular, S1S2 Gastrointestinal: normoactive bowel sounds Integumentary: no rash, other (no edema ) Neurologic: no focal deficit, CN 3-12 intact Psychiatric: mood/affect appropriate, cooperative - Lab 01/12/20 03:07 01/15/20 07:32 Most recent lab results Calcium 7.6 mg/dL (8.4-10.2) L 01/15/20 07:32 Urine Creatinine 125.0 mg/dL (0.1-20.0) H 01/12/20 13:01 Urine Sodium 127 mmol/L 01/12/20 13:01 Urine Total Protein 31 mg/dL (5-11.8) H 01/12/20 13:01 Medications & Allergies - Medications Allergies/Adverse Reactions: Allergies No Known Allergies Allergy (Verified 01/12/20 05:37) Home Medications: Home Medications Medication Instructions Recorded Confirmed Last Taken Type No Known Home Medications [No 01/12/20 01/12/20 Unknown History Reported Home Medications] Active Medications: Generic Name Dose Route Start Last Admin Trade Name Freq PRN Reason Stop Dose Admin Acetaminophen 650 mg 01/12/20 05:22 Tylenol PO Q4H PRN Pain MILD(1-3)/Fever >100.5/BOO Dextrose 50 ml 01/12/20 05:22 D50w (25gm) Syringe IV Q30MIN PRN Hypoglycemia Protocol Insulin Human Lispro 0 unit 01/12/20 07:30 01/16/20 22:21 Humalog SUB-Q Not Given ACHS LEONARD Protocol Magnesium Hydroxide 30 ml 01/12/20 05:22 Milk Of Magnesia PO Q4H PRN Constipation Morphine Sulfate 2 mg 01/12/20 05:22 01/15/20 22:03 Morphine IV 2 mg Q4H PRN Administration Pain, Moderate (4-6) Ondansetron HCl 4 mg 01/12/20 05:22 Zofran IV Q8H PRN Nausea And Vomiting Sodium Chloride 10 ml 01/12/20 10:00 01/16/20 22:29 Sodium Chloride Flush Syringe 10 Ml IV 10 ml BID LEONARD Administration Sodium Chloride 10 ml 01/12/20 05:22 Sodium Chloride Flush Syringe 10 Ml IV PRN PRN LINE FLUSH
--- NOTE | 2020-01-17 20:58 | Progress Note ---
Assessment and Plan Assessment and plan: -- Altered mental state/acute metabolic encephalopathy Current Visit: Yes Status: Acute Plan to address problem: Etiology is unclear. Will monitor mental status. CT head is normal Neurology consulted yesterday by my colleague Today patient is alert and oriented PT evaluation --Type II diabetes mellitus Current Visit: Yes Status: Acute Plan to address problem: We will monitor Accu-Cheks. Sliding scale coverage ADA diet and insulin as needed --Hypertension Current Visit: Yes Status: Acute Plan to address problem: We will resume routine home medications on the monitor vital signs closely. --Acute renal failure present on admission; Current Visit: Yes Status: Acute Plan to address problem: Vasomotor nephropathy ,patient placed on IV fluid. Resolved, closely monitor renal function 01/13/2020 -Patient's creatinine improved -Patient has hyperkalemia and Kayexalate was given --DVT prophylaxis Current Visit: Yes Status: Acute Plan to address problem: Patient placed on subcutaneous heparin. --Full code status Current Visit: Yes Status: Acute Awaiting placement DC planning per case management Awaiting SNF placement History Interval history: I have seen and examined the patient Patient's chart and medications reviewed Patient is awaiting SNF placement Hospitalist Physical - Constitutional Vitals: Temp Pulse Resp BP Pulse Ox 99.6 F 85 19 155/65 95 01/17/20 19:46 01/17/20 19:46 01/17/20 19:46 01/17/20 19:46 01/17/20 19:46 General appearance: Present: no acute distress, well-nourished, obese (Morbidly obese) - EENT Eyes: Present: PERRL, EOM intact - Neck Neck: Present: supple, normal ROM - Respiratory Respiratory effort: normal Respiratory: bilateral: diminished, negative: rales, rhonchi, wheezing - Cardiovascular Rhythm: regular Heart Sounds: Present: S1 & S2 - Extremities Extremities: no ischemia, No edema - Abdominal General gastrointestinal: soft, non-tender, non-distended, normal bowel sounds - Integumentary Integumentary: Present: clear, warm - Psychiatric Psychiatric: appropriate mood/affect, other (Minimally communicative) - Neurologic Neurologic: moves all extremities HEART Score - HEART Score Troponin: Troponin T < 0.010 ng/mL (0.00-0.029) 01/12/20 05:30 Results - Labs CBC & Chem 7: 01/12/20 03:07 01/15/20 07:32 Labs: Laboratory Last Values WBC 2.6 K/mm3 (4.5-11.0) L 01/12/20 03:07 RBC 3.53 M/mm3 (3.65-5.03) L 01/12/20 03:07 Hgb 11.0 gm/dl (10.1-14.3) 01/12/20 03:07 Hct 33.4 % (30.3-42.9) 01/12/20 03:07 MCV 95 fl (79-97) 01/12/20 03:07 MCH 31 pg (28-32) 01/12/20 03:07 MCHC 33 % (30-34) 01/12/20 03:07 RDW 15.3 % (13.2-15.2) H 01/12/20 03:07 Plt Count 38 K/mm3 (140-440) L 01/12/20 03:07 Lymph % (Auto) 21.0 % (13.4-35.0) 01/12/20 03:07 Angelina % (Auto) 6.1 % (0.0-7.3) 01/12/20 03:07 Eos % (Auto) 0.7 % (0.0-4.3) 01/12/20 03:07 Baso % (Auto) 0.3 % (0.0-1.8) 01/12/20 03:07 Lymph # (Auto) 0.5 K/mm3 (1.2-5.4) L 01/12/20 03:07 Angelina # (Auto) 0.2 K/mm3 (0.0-0.8) 01/12/20 03:07 Eos # (Auto) 0.0 K/mm3 (0.0-0.4) 01/12/20 03:07 Baso # (Auto) 0.0 K/mm3 (0.0-0.1) 01/12/20 03:07 Seg Neutrophils % 71.9 % (40.0-70.0) H 01/12/20 03:07 Seg Neutrophils # 1.8 K/mm3 (1.8-7.7) 01/12/20 03:07 Sodium 139 mmol/L (137-145) 01/15/20 07:32 Potassium 4.1 mmol/L (3.6-5.0) 01/15/20 07:32 Chloride 106.4 mmol/L (98-107) 01/15/20 07:32 Carbon Dioxide 23 mmol/L (22-30) 01/15/20 07:32 Anion Gap 14 mmol/L 01/15/20 07:32 BUN 11 mg/dL (7-17) 01/15/20 07:32 Creatinine 0.9 mg/dL (0.6-1.2) 01/15/20 07:32 Estimated GFR > 60 ml/min 01/15/20 07:32 BUN/Creatinine Ratio 12 % 01/15/20 07:32 Glucose 116 mg/dL (65-100) H 01/15/20 07:32 POC Glucose 159 mg/dL (70-105) H 01/17/20 20:51 Lactic Acid 1.10 mmol/L (0.7-2.0) 01/12/20 03:07 Calcium 7.6 mg/dL (8.4-10.2) L 01/15/20 07:32 Total Bilirubin 0.30 mg/dL (0.1-1.2) 01/12/20 03:07 AST 21 units/L (5-40) 01/12/20 03:07 ALT 11 units/L (7-56) 01/12/20 03:07 Alkaline Phosphatase 33 units/L (35-129) L 01/12/20 03:07 Ammonia 11.0 umol/L (25-60) L 01/12/20 03:07 Total Creatine Kinase 74 units/L (30-135) 01/12/20 03:07 Troponin T < 0.010 ng/mL (0.00-0.029) 01/12/20 05:30 Total Protein 6.0 g/dL (6.3-8.2) L 01/12/20 03:07 Albumin 3.4 g/dL (3.9-5) L 01/12/20 03:07 Albumin/Globulin Ratio 1.3 % 01/12/20 03:07 Urine Color Jaycee (Yellow) 01/12/20 Unknown Urine Turbidity Clear (Clear) 01/12/20 Unknown Urine pH 5.0 (5.0-7.0) 01/12/20 Unknown Ur Specific [place] 1.020 (1.003-1.030) 01/12/20 Unknown Urine Protein 30 mg/dl mg/dL (Negative) 01/12/20 Unknown Urine Glucose (UA) Neg mg/dL (Negative) 01/12/20 Unknown Urine Ketones Neg mg/dL (Negative) 01/12/20 Unknown Urine Blood Neg (Negative) 01/12/20 Unknown Urine Nitrite Neg (Negative) 01/12/20 Unknown Urine Bilirubin Neg (Negative) 01/12/20 Unknown Urine Urobilinogen < 2.0 mg/dL (<2.0) 01/12/20 Unknown Ur Leukocyte Esterase Neg (Negative) 01/12/20 Unknown Urine WBC (Auto) 4.0 /HPF (0.0-6.0) 01/12/20 Unknown Urine RBC (Auto) 4.0 /HPF (0.0-6.0) 01/12/20 Unknown Urine Bacteria (Auto) 1+ /HPF (Negative) 01/12/20 Unknown Urine Mucus Few /HPF 01/12/20 Unknown Urine Creatinine 125.0 mg/dL (0.1-20.0) H 01/12/20 13:01 Urine Sodium 127 mmol/L 01/12/20 13:01 Urine Total Protein 31 mg/dL (5-11.8) H 01/12/20 13:01 Salicylates < 0.3 mg/dL (2.8-20.0) L 01/12/20 03:07 Urine Opiates Screen Presumptive negative 01/12/20 Unknown Urine Methadone Screen Presumptive negative 01/12/20 Unknown Acetaminophen 5.0 ug/mL (10.0-30.0) L 01/12/20 03:07 Ur Barbiturates Screen Presumptive negative 01/12/20 Unknown Ur Phencyclidine Scrn Presumptive negative 01/12/20 Unknown Ur Amphetamines Screen Presumptive negative 01/12/20 Unknown U Benzodiazepines Scrn Presumptive negative 01/12/20 Unknown Urine Cocaine Screen Presumptive negative 01/12/20 Unknown U Marijuana (THC) Screen Presumptive negative 01/12/20 Unknown Drugs of Abuse Note Disclamer 01/12/20 Unknown Plasma/Serum Alcohol < 0.01 % (0-0.07) 01/12/20 03:07 Khan/IV: Voiding Method External Female Catheter IV Catheter Type [Left Wrist] INT / Saline Lock IV Catheter Type [Right Distal INT / Saline Lock Port Antecubital] Active Medications - Current Medications Current Medications: Generic Name Dose Route Start Last Admin Trade Name Freq PRN Reason Stop Dose Admin Acetaminophen 650 mg 01/12/20 05:22 Tylenol PO Q4H PRN Pain MILD(1-3)/Fever >100.5/BOO Dextrose 50 ml 01/12/20 05:22 D50w (25gm) Syringe IV Q30MIN PRN Hypoglycemia Protocol Insulin Human Lispro 0 unit 01/12/20 07:30 01/17/20 16:04 Humalog SUB-Q Not Given ACHS LEONARD Protocol Magnesium Hydroxide 30 ml 01/12/20 05:22 Milk Of Magnesia PO Q4H PRN Constipation Morphine Sulfate 2 mg 01/12/20 05:22 01/15/20 22:03 Morphine IV 2 mg Q4H PRN Administration Pain, Moderate (4-6) Ondansetron HCl 4 mg 01/12/20 05:22 Zofran IV Q8H PRN Nausea And Vomiting Sodium Chloride 10 ml 01/12/20 10:00 01/16/20 22:29 Sodium Chloride Flush Syringe 10 Ml IV 10 ml BID LEONARD Administration Sodium Chloride 10 ml 01/12/20 05:22 Sodium Chloride Flush Syringe 10 Ml IV PRN PRN LINE FLUSH Nutrition/Malnutrition Assess - Dietary Evaluation Nutrition/Malnutrition Findings: Nutrition Notes Start: 01/12/20 10:30 Freq: Status: Active Protocol: Document 01/16/20 11:43 LM (Rec: 01/16/20 11:51 LM [email or web address]) Nutrition Notes Initial or Follow up Reassessment Current Diagnosis Acute Kidney Injury,Diabetes, Hypertension Other Pertinent Diagnosis CA, AMS Current Diet Cardiac/Consistent CHO Labs/Tests Reviewed Pertinent Medications Humalog Height 5 ft 6 in Weight 114.305 kg [place] Body Weight (kg) 59.09 BMI 40.6 Weight Status Morbidly Obese Subjective/Other Information Pt asleep at time of visit. breakfast tray untouched and one Glucerna opened. Pt had several unopened Glucernas on tray table. Pt has 25-50% intakes in chart yesterday with 100% ONS intakes. Burn Absent Trauma Absent GI Symptoms None Minimum of two criteria No Energy Intake (severe) < or equal to 50% Estimated Energy Requirement > or equal to 5 days #1 Nutrition Diagnosis Inadequate oral intake Diagnosis Progress(for reassessment Continues documentation) Is patient on ventilator? No Is Patient Ambulatory and/or Out of Bed No REE-([facility]-confined to bed) 1967.976 Kcal/Kg value to use for calculation 12 Approximate Energy Requirements Using 1372 kcal/Kg Calculation Used for Recommendations Kcal/kg Additional Notes Protein needs are 87-104g (1-1 .2g/kg Adj wt 86.5kg) Fluid needs are 1ml/kcal Nutrition Intervention Change Diet Order: Continue Add Supplement/Snack (indicate name/kcal Glucerna BID /protein ) Provides kCal: 440 Provides Protein (gm) 20 Goal #1 Meet at least 80% of kcal and protein needs Follow-Up By: 01/18/20 Additional Comments F/U for PO/ONS intakes
[2020-01-18] MEDS: INSULIN LISPRO 100 UNIT/ML VIAL 3 mL SUB-Q SCH ×5 (08:24→21:28)
[2020-01-18] MEDS: ACETAMINOPHEN 325 MG TAB PO PRN (13:18)
--- NOTE | 2020-01-18 15:02 | Progress Note ---
Assessment and Plan Assessment and plan: -- Altered mental state/acute metabolic encephalopathy Current Visit: Yes Status: Acute Plan to address problem: Etiology is unclear. Will monitor mental status. CT head is normal Neurology consulted yesterday by my colleague Today patient is alert and oriented PT evaluation --Type II diabetes mellitus Current Visit: Yes Status: Acute Plan to address problem: We will monitor Accu-Cheks. Sliding scale coverage ADA diet and insulin as needed --Hypertension Current Visit: Yes Status: Acute Plan to address problem: We will resume routine home medications on the monitor vital signs closely. --Acute renal failure present on admission; Current Visit: Yes Status: Acute Plan to address problem: Vasomotor nephropathy ,patient placed on IV fluid. Resolved, closely monitor renal function 01/13/2020 -Patient's creatinine improved -Patient has hyperkalemia and Kayexalate was given --DVT prophylaxis Current Visit: Yes Status: Acute Plan to address problem: Patient placed on subcutaneous heparin. --Full code status Current Visit: Yes Status: Acute Awaiting placement DC planning per case management Awaiting SNF placement 01/14/2020 -MARISOL resolved, hyperkalemia resolved. Altered mental status resolved. Patient is weak and states she is feeling sick, evaluated by physical therapy and recommend subacute rehab. We will put case management consult. 01/15/2020 -MARISOL resolved, hyperkalemia resolved. Patient was alert and oriented. It evaluated and recommended subacute rehab. 01/16/20; electrolytes within normal limits, patient feels better, awaiting placement 01/17/2020; clinically stable for discharge, pending placement 01/18/2020; Covid test sent for placement, stable for discharge, case management processing placement History Interval history: I have seen and examined the patient at the bedside Patient's chart and medications reviewed No new events reported by the nursing staff Patient alert and awake responds to simple commands Awaiting placement Vital signs noted Hospitalist Physical - Constitutional Vitals: Temp Pulse Resp BP Pulse Ox 100.0 F H 93 H 20 113/78 93 01/18/20 12:17 01/18/20 12:17 01/18/20 12:17 01/18/20 12:17 01/18/20 12:17 General appearance: Present: no acute distress, well-nourished, obese (Morbidly obese) - EENT Eyes: Present: PERRL, EOM intact - Neck Neck: Present: supple, normal ROM - Respiratory Respiratory effort: normal Respiratory: bilateral: diminished, negative: rales, rhonchi, wheezing - Cardiovascular Rhythm: regular Heart Sounds: Present: S1 & S2 - Extremities Extremities: no ischemia, No edema - Abdominal General gastrointestinal: soft, non-tender, non-distended, normal bowel sounds - Integumentary Integumentary: Present: clear, warm - Psychiatric Psychiatric: appropriate mood/affect, cooperative - Neurologic Neurologic: CNII-XII intact, moves all extremities HEART Score - HEART Score Troponin: Troponin T < 0.010 ng/mL (0.00-0.029) 01/12/20 05:30 Results - Labs CBC & Chem 7: 01/12/20 03:07 01/15/20 07:32 Labs: Laboratory Last Values WBC 2.6 K/mm3 (4.5-11.0) L 01/12/20 03:07 RBC 3.53 M/mm3 (3.65-5.03) L 01/12/20 03:07 Hgb 11.0 gm/dl (10.1-14.3) 01/12/20 03:07 Hct 33.4 % (30.3-42.9) 01/12/20 03:07 MCV 95 fl (79-97) 01/12/20 03:07 MCH 31 pg (28-32) 01/12/20 03:07 MCHC 33 % (30-34) 01/12/20 03:07 RDW 15.3 % (13.2-15.2) H 01/12/20 03:07 Plt Count 38 K/mm3 (140-440) L 01/12/20 03:07 Lymph % (Auto) 21.0 % (13.4-35.0) 01/12/20 03:07 [place] % (Auto) 6.1 % (0.0-7.3) 01/12/20 03:07 Eos % (Auto) 0.7 % (0.0-4.3) 01/12/20 03:07 Baso % (Auto) 0.3 % (0.0-1.8) 01/12/20 03:07 Lymph # (Auto) 0.5 K/mm3 (1.2-5.4) L 01/12/20 03:07 [place] # (Auto) 0.2 K/mm3 (0.0-0.8) 01/12/20 03:07 Eos # (Auto) 0.0 K/mm3 (0.0-0.4) 01/12/20 03:07 Baso # (Auto) 0.0 K/mm3 (0.0-0.1) 01/12/20 03:07 Seg Neutrophils % 71.9 % (40.0-70.0) H 01/12/20 03:07 Seg Neutrophils # 1.8 K/mm3 (1.8-7.7) 01/12/20 03:07 Sodium 139 mmol/L (137-145) 01/15/20 07:32 Potassium 4.1 mmol/L (3.6-5.0) 01/15/20 07:32 Chloride 106.4 mmol/L (98-107) 01/15/20 07:32 Carbon Dioxide 23 mmol/L (22-30) 01/15/20 07:32 Anion Gap 14 mmol/L 01/15/20 07:32 BUN 11 mg/dL (7-17) 01/15/20 07:32 Creatinine 0.9 mg/dL (0.6-1.2) 01/15/20 07:32 Estimated GFR > 60 ml/min 01/15/20 07:32 BUN/Creatinine Ratio 12 % 01/15/20 07:32 Glucose 116 mg/dL (65-100) H 01/15/20 07:32 POC Glucose 122 mg/dL (70-105) H 01/18/20 13:14 Lactic Acid 1.10 mmol/L (0.7-2.0) 01/12/20 03:07 Calcium 7.6 mg/dL (8.4-10.2) L 01/15/20 07:32 Total Bilirubin 0.30 mg/dL (0.1-1.2) 01/12/20 03:07 AST 21 units/L (5-40) 01/12/20 03:07 ALT 11 units/L (7-56) 01/12/20 03:07 Alkaline Phosphatase 33 units/L (35-129) L 01/12/20 03:07 Ammonia 11.0 umol/L (25-60) L 01/12/20 03:07 Total Creatine Kinase 74 units/L (30-135) 01/12/20 03:07 Troponin T < 0.010 ng/mL (0.00-0.029) 01/12/20 05:30 Total Protein 6.0 g/dL (6.3-8.2) L 01/12/20 03:07 Albumin 3.4 g/dL (3.9-5) L 01/12/20 03:07 Albumin/Globulin Ratio 1.3 % 01/12/20 03:07 Urine Color Jaycee (Yellow) 01/12/20 Unknown Urine Turbidity Clear (Clear) 01/12/20 Unknown Urine pH 5.0 (5.0-7.0) 01/12/20 Unknown Ur Specific [place] 1.020 (1.003-1.030) 01/12/20 Unknown Urine Protein 30 mg/dl mg/dL (Negative) 01/12/20 Unknown Urine Glucose (UA) Neg mg/dL (Negative) 01/12/20 Unknown Urine Ketones Neg mg/dL (Negative) 01/12/20 Unknown Urine Blood Neg (Negative) 01/12/20 Unknown Urine Nitrite Neg (Negative) 01/12/20 Unknown Urine Bilirubin Neg (Negative) 01/12/20 Unknown Urine Urobilinogen < 2.0 mg/dL (<2.0) 01/12/20 Unknown Ur Leukocyte Esterase Neg (Negative) 01/12/20 Unknown Urine WBC (Auto) 4.0 /HPF (0.0-6.0) 01/12/20 Unknown Urine RBC (Auto) 4.0 /HPF (0.0-6.0) 01/12/20 Unknown Urine Bacteria (Auto) 1+ /HPF (Negative) 01/12/20 Unknown Urine Mucus Few /HPF 01/12/20 Unknown Urine Creatinine 125.0 mg/dL (0.1-20.0) H 01/12/20 13:01 Urine Sodium 127 mmol/L 01/12/20 13:01 Urine Total Protein 31 mg/dL (5-11.8) H 01/12/20 13:01 Salicylates < 0.3 mg/dL (2.8-20.0) L 01/12/20 03:07 Urine Opiates Screen Presumptive negative 01/12/20 Unknown Urine Methadone Screen Presumptive negative 01/12/20 Unknown Acetaminophen 5.0 ug/mL (10.0-30.0) L 01/12/20 03:07 Ur Barbiturates Screen Presumptive negative 01/12/20 Unknown Ur Phencyclidine Scrn Presumptive negative 01/12/20 Unknown Ur Amphetamines Screen Presumptive negative 01/12/20 Unknown U Benzodiazepines Scrn Presumptive negative 01/12/20 Unknown Urine Cocaine Screen Presumptive negative 01/12/20 Unknown U Marijuana (THC) Screen Presumptive negative 01/12/20 Unknown Drugs of Abuse Note Disclamer 01/12/20 Unknown Plasma/Serum Alcohol < 0.01 % (0-0.07) 01/12/20 03:07 Khan/IV: Voiding Method External Female Catheter IV Catheter Type [Left Wrist] INT / Saline Lock IV Catheter Type [Right Distal INT / Saline Lock Port Antecubital] Active Medications - Current Medications Current Medications: Generic Name Dose Route Start Last Admin Trade Name Freq PRN Reason Stop Dose Admin Acetaminophen 650 mg 01/12/20 05:22 01/18/20 13:18 Tylenol PO 650 mg Q4H PRN Administration Pain MILD(1-3)/Fever >100.5/BOO Dextrose 50 ml 01/12/20 05:22 D50w (25gm) Syringe IV Q30MIN PRN Hypoglycemia Protocol Insulin Human Lispro 0 unit 01/12/20 07:30 01/18/20 13:20 Humalog SUB-Q Not Given ACHS LEONARD Protocol Magnesium Hydroxide 30 ml 01/12/20 05:22 Milk Of Magnesia PO Q4H PRN Constipation Morphine Sulfate 2 mg 01/12/20 05:22 01/15/20 22:03 Morphine IV 2 mg Q4H PRN Administration Pain, Moderate (4-6) Ondansetron HCl 4 mg 01/12/20 05:22 Zofran IV Q8H PRN Nausea And Vomiting Sodium Chloride 10 ml 01/12/20 10:00 01/18/20 10:16 Sodium Chloride Flush Syringe 10 Ml IV 10 ml BID LEONARD Administration Sodium Chloride 10 ml 01/12/20 05:22 Sodium Chloride Flush Syringe 10 Ml IV PRN PRN LINE FLUSH Nutrition/Malnutrition Assess - Dietary Evaluation Nutrition/Malnutrition Findings: Nutrition Notes Start: 01/12/20 10:30 Freq: Status: Active Protocol: Document 01/18/20 13:23 CW (Rec: 01/18/20 13:33 CW [email or web address]) Co-Sign 01/18/20 13:23 LM Nutrition Notes Initial or Follow up Reassessment Current Diagnosis Acute Kidney Injury,Diabetes, Hypertension Other Pertinent Diagnosis CA, AMS Current Diet Cardiac/Consistent CHO Labs/Tests POC BG 159 Pertinent Medications Humalog Height 5 ft 6 in Weight 114.305 kg [place] Body Weight (kg) 59.09 BMI 40.6 Weight Status Morbidly Obese Subjective/Other Information Pt awake but minimally responsive. Observed one open Glucerna and pt reports drinking suplements. Pt does not report any other intakes or preferences. Nurse notes report 50% intakes at breakfast on 01/16. Percent of energy/protein needs met: 32%/22% Burn Absent Trauma Absent GI Symptoms None Current % PO Negligible Minimum of two criteria No Energy Intake (severe) < or equal to 50% Estimated Energy Requirement > or equal to 5 days #1 Nutrition Diagnosis Inadequate oral intake Diagnosis Progress(for reassessment Continues documentation) Is patient on ventilator? No Is Patient Ambulatory and/or Out of Bed No REE-([facility]-confined to bed) 1967.976 Kcal/Kg value to use for calculation 12 Approximate Energy Requirements Using 1372 kcal/Kg Calculation Used for Recommendations Kcal/kg Additional Notes Protein needs are 87-104g (1-1.2g/kg Adj wt 86.5kg) Fluid needs are 1ml/kcal Nutrition Intervention Change Diet Order: Continue Add Supplement/Snack (indicate name/kcal Glucerna BID /protein ) Provides kCal: 440 Provides Protein (gm) 20 Goal #1 Meet at least 80% of kcal and protein needs Anticipated Discharge Needs: Cardiac/Consistent CHO with ONS as needed Follow-Up By: 01/20/20 Additional Comments FU for intakes
[2020-01-19] MEDS: ACETAMINOPHEN 325 MG TAB PO PRN (05:03)
[2020-01-19] MEDS: INSULIN LISPRO 100 UNIT/ML VIAL 3 mL SUB-Q SCH ×4 (08:26→21:22)
--- NOTE | 2020-01-19 19:46 | Progress Note ---
Assessment and Plan Assessment and plan: --Febrile illness; COVID-19 positive Current Visit: Yes Status: Acute Plan to address problem: Contact isolation, droplet precautions Oxygen titrate O2 sats to more than 90% Inflammatory markers ID consult Home O2 evaluation -- Altered mental state/acute metabolic encephalopathy Current Visit: Yes Status: Acute Plan to address problem: Etiology is unclear. Will monitor mental status. CT head is normal Neurology consulted yesterday by my colleague. Today patient is alert and oriented PT evaluation --Type II diabetes mellitus Current Visit: Yes Status: Acute Plan to address problem: We will monitor Accu-Cheks. Sliding scale coverage ADA diet and insulin as needed --Hypertension Current Visit: Yes Status: Acute Plan to address problem: We will resume routine home medications on the monitor vital signs closely. --Acute renal failure present on admission; Current Visit: Yes Status: Acute Plan to address problem: Vasomotor nephropathy ,patient placed on IV fluid. Resolved, closely monitor renal function 01/13/2020 -Patient's creatinine improved -Patient has hyperkalemia and Kayexalate was given --DVT prophylaxis Current Visit: Yes Status: Acute Plan to address problem: Patient placed on subcutaneous heparin. --Full code status Current Visit: Yes Status: Acute Awaiting placement DC planning per case management Awaiting SNF placement 01/14/2020 -MARISOL resolved, hyperkalemia resolved. Altered mental status resolved. Patient is weak and states she is feeling sick, evaluated by physical therapy and recommend subacute rehab. We will put case management con sult. 01/15/2020 -MARISOL resolved, hyperkalemia resolved. Patient was alert and oriented. It evaluated and recommended subacute rehab. 01/16/20; electrolytes within normal limits, patient feels better, awaiting placement 01/17/2020; clinically stable for discharge, pending placement 01/18/2020; Covid test sent for placement, stable for discharge, case management processing placement 01/19/2020; COVID-19 test positive, patient also has some low-grade fever, contact and droplet isolation ID consult, transfer to third floor Covid wing History Interval history: Patient seen and examined this afternoon at her bedside Patient is awaiting SNF placement As protocol patient was tested for COVID-19 Test came out positive Low-grade fever today Vital signs noted Hospitalist Physical - Constitutional Vitals: Temp Pulse Resp BP Pulse Ox 99.0 F 81 18 139/55 96 01/19/20 16:44 01/19/20 17:00 01/19/20 16:44 01/19/20 16:44 01/19/20 16:44 General appearance: Present: no acute distress, well-nourished, obese (Morbidly obese) - EENT Eyes: Present: PERRL, EOM intact - Neck Neck: Present: supple, normal ROM - Respiratory Respiratory effort: normal Respiratory: bilateral: diminished, negative: rales, rhonchi, wheezing - Cardiovascular Rhythm: regular Heart Sounds: Present: S1 & S2 - Extremities Extremities: no ischemia, No edema - Abdominal General gastrointestinal: soft, non-tender, non-distended, normal bowel sounds - Integumentary Integumentary: Present: clear, warm - Psychiatric Psychiatric: appropriate mood/affect, cooperative - Neurologic Neurologic: CNII-XII intact, moves all extremities HEART Score - HEART Score Troponin: Troponin T < 0.010 ng/mL (0.00-0.029) 01/12/20 05:30 Results - Labs CBC & Chem 7: 01/12/20 03:07 01/15/20 07:32 Labs: Laboratory Last Values WBC 2.6 K/mm3 (4.5-11.0) L 01/12/20 03:07 RBC 3.53 M/mm3 (3.65-5.03) L 01/12/20 03:07 Hgb 11.0 gm/dl (10.1-14.3) 01/12/20 03:07 Hct 33.4 % (30.3-42.9) 01/12/20 03:07 MCV 95 fl (79-97) 01/12/20 03:07 MCH 31 pg (28-32) 01/12/20 03:07 MCHC 33 % (30-34) 01/12/20 03:07 RDW 15.3 % (13.2-15.2) H 01/12/20 03:07 Plt Count 38 K/mm3 (140-440) L 01/12/20 03:07 Lymph % (Auto) 21.0 % (13.4-35.0) 01/12/20 03:07 [place] % (Auto) 6.1 % (0.0-7.3) 01/12/20 03:07 Eos % (Auto) 0.7 % (0.0-4.3) 01/12/20 03:07 Baso % (Auto) 0.3 % (0.0-1.8) 01/12/20 03:07 Lymph # (Auto) 0.5 K/mm3 (1.2-5.4) L 01/12/20 03:07 [place] # (Auto) 0.2 K/mm3 (0.0-0.8) 01/12/20 03:07 Eos # (Auto) 0.0 K/mm3 (0.0-0.4) 01/12/20 03:07 Baso # (Auto) 0.0 K/mm3 (0.0-0.1) 01/12/20 03:07 Seg Neutrophils % 71.9 % (40.0-70.0) H 01/12/20 03:07 Seg Neutrophils # 1.8 K/mm3 (1.8-7.7) 01/12/20 03:07 Sodium 139 mmol/L (137-145) 01/15/20 07:32 Potassium 4.1 mmol/L (3.6-5.0) 01/15/20 07:32 Chloride 106.4 mmol/L (98-107) 01/15/20 07:32 Carbon Dioxide 23 mmol/L (22-30) 01/15/20 07:32 Anion Gap 14 mmol/L 01/15/20 07:32 BUN 11 mg/dL (7-17) 01/15/20 07:32 Creatinine 0.9 mg/dL (0.6-1.2) 01/15/20 07:32 Estimated GFR > 60 ml/min 01/15/20 07:32 BUN/Creatinine Ratio 12 % 01/15/20 07:32 Glucose 116 mg/dL (65-100) H 01/15/20 07:32 POC Glucose 133 mg/dL (70-105) H 01/19/20 16:41 Lactic Acid 1.10 mmol/L (0.7-2.0) 01/12/20 03:07 Calcium 7.6 mg/dL (8.4-10.2) L 01/15/20 07:32 Total Bilirubin 0.30 mg/dL (0.1-1.2) 01/12/20 03:07 AST 21 units/L (5-40) 01/12/20 03:07 ALT 11 units/L (7-56) 01/12/20 03:07 Alkaline Phosphatase 33 units/L (35-129) L 01/12/20 03:07 Ammonia 11.0 umol/L (25-60) L 01/12/20 03:07 Total Creatine Kinase 74 units/L (30-135) 01/12/20 03:07 Troponin T < 0.010 ng/mL (0.00-0.029) 01/12/20 05:30 Total Protein 6.0 g/dL (6.3-8.2) L 01/12/20 03:07 Albumin 3.4 g/dL (3.9-5) L 01/12/20 03:07 Albumin/Globulin Ratio 1.3 % 01/12/20 03:07 Urine Color [place] (Yellow) 01/12/20 Unknown Urine Turbidity Clear (Clear) 01/12/20 Unknown Urine pH 5.0 (5.0-7.0) 01/12/20 Unknown Ur Specific [place] 1.020 (1.003-1.030) 01/12/20 Unknown Urine Protein 30 mg/dl mg/dL (Negative) 01/12/20 Unknown Urine Glucose (UA) Neg mg/dL (Negative) 01/12/20 Unknown Urine Ketones Neg mg/dL (Negative) 01/12/20 Unknown Urine Blood Neg (Negative) 01/12/20 Unknown Urine Nitrite Neg (Negative) 01/12/20 Unknown Urine Bilirubin Neg (Negative) 01/12/20 Unknown Urine Urobilinogen < 2.0 mg/dL (<2.0) 01/12/20 Unknown Ur Leukocyte Esterase Neg (Negative) 01/12/20 Unknown Urine WBC (Auto) 4.0 /HPF (0.0-6.0) 01/12/20 Unknown Urine RBC (Auto) 4.0 /HPF (0.0-6.0) 01/12/20 Unknown Urine Bacteria (Auto) 1+ /HPF (Negative) 01/12/20 Unknown Urine Mucus Few /HPF 01/12/20 Unknown Urine Creatinine 125.0 mg/dL (0.1-20.0) H 01/12/20 13:01 Urine Sodium 127 mmol/L 01/12/20 13:01 Urine Total Protein 31 mg/dL (5-11.8) H 01/12/20 13:01 Salicylates < 0.3 mg/dL (2.8-20.0) L 01/12/20 03:07 Urine Opiates Screen Presumptive negative 01/12/20 Unknown Urine Methadone Screen Presumptive negative 01/12/20 Unknown Acetaminophen 5.0 ug/mL (10.0-30.0) L 01/12/20 03:07 Ur Barbiturates Screen Presumptive negative 01/12/20 Unknown Ur Phencyclidine Scrn Presumptive negative 01/12/20 Unknown Ur Amphetamines Screen Presumptive negative 01/12/20 Unknown U Benzodiazepines Scrn Presumptive negative 01/12/20 Unknown Urine Cocaine Screen Presumptive negative 01/12/20 Unknown U Marijuana (THC) Screen Presumptive negative 01/12/20 Unknown Drugs of Abuse Note Disclamer 01/12/20 Unknown Plasma/Serum Alcohol < 0.01 % (0-0.07) 01/12/20 03:07 Coronavirus (PCR) Positive (Negative) A 01/19/20 Unknown Khan/IV: Voiding Method External Female Catheter IV Catheter Type [Left Wrist] INT / Saline Lock IV Catheter Type [Right Distal INT / Saline Lock Port Antecubital] Active Medications - Current Medications Current Medications: Generic Name Dose Route Start Last Admin Trade Name Freq PRN Reason Stop Dose Admin Acetaminophen 650 mg 01/12/20 05:22 01/19/20 05:03 Tylenol PO 650 mg Q4H PRN Administration Pain MILD(1-3)/Fever >100.5/BOO Dextrose 50 ml 01/12/20 05:22 D50w (25gm) Syringe IV Q30MIN PRN Hypoglycemia Protocol Insulin Human Lispro 0 unit 01/12/20 07:30 01/19/20 17:16 Humalog SUB-Q Not Given ACHS LEONARD Protocol Magnesium Hydroxide 30 ml 01/12/20 05:22 Milk Of Magnesia PO Q4H PRN Constipation Morphine Sulfate 2 mg 01/12/20 05:22 01/15/20 22:03 Morphine IV 2 mg Q4H PRN Administration Pain, Moderate (4-6) Ondansetron HCl 4 mg 01/12/20 05:22 Zofran IV Q8H PRN Nausea And Vomiting Sodium Chloride 10 ml 01/12/20 10:00 12/03/20 12:31 Sodium Chloride Flush Syringe 10 Ml IV 10 ml BID LEONARD Administration Sodium Chloride 10 ml 01/12/20 05:22 Sodium Chloride Flush Syringe 10 Ml IV PRN PRN LINE FLUSH Nutrition/Malnutrition Assess - Dietary Evaluation Nutrition/Malnutrition Findings: Nutrition Notes Start: 01/12/20 10:30 Freq: Status: Active Protocol: Document 01/18/20 13:23 CW (Rec: 01/18/20 13:33 CW [email or web address]) Co-Sign 01/18/20 13:23 LM Nutrition Notes Initial or Follow up Reassessment Current Diagnosis Acute Kidney Injury,Diabetes, Hypertension Other Pertinent Diagnosis CA, AMS Current Diet Cardiac/Consistent CHO Labs/Tests POC BG 159 Pertinent Medications Humalog Height 5 ft 6 in Weight 114.305 kg [place] Body Weight (kg) 59.09 BMI 40.6 Weight Status Morbidly Obese Subjective/Other Information Pt awake but minimally responsive. Observed one open Glucerna and pt reports drinking suplements. Pt does not report any other intakes or preferences. Nurse notes report 50% intakes at breakfast on 01/16. Percent of energy/protein needs met: 32%/22% Burn Absent Trauma Absent GI Symptoms None Current % PO Negligible Minimum of two criteria No Energy Intake (severe) < or equal to 50% Estimated Energy Requirement > or equal to 5 days #1 Nutrition Diagnosis Inadequate oral intake Diagnosis Progress(for reassessment Continues documentation) Is patient on ventilator? No Is Patient Ambulatory and/or Out of Bed No REE-([facility]-confined to bed) 1967.976 Kcal/Kg value to use for calculation 12 Approximate Energy Requirements Using 1372 kcal/Kg Calculation Used for Recommendations Kcal/kg Additional Notes Protein needs are 87-104g (1-1.2g/kg Adj wt 86.5kg) Fluid needs are 1ml/kcal Nutrition Intervention Change Diet Order: Continue Add Supplement/Snack (indicate name/kcal Glucerna BID /protein ) Provides kCal: 440 Provides Protein (gm) 20 Goal #1 Meet at least 80% of kcal and protein needs Anticipated Discharge Needs: Cardiac/Consistent CHO with ONS as needed Follow-Up By: 01/20/20 Additional Comments FU for intakes
[2020-01-20 01:45] LABS: C-Reactive Protein 16.9 mg/dL (0.00-1.30)
[2020-01-20] MEDS: INSULIN LISPRO 100 UNIT/ML VIAL 3 mL SUB-Q SCH ×4 (09:22→21:42)
--- NOTE | 2020-01-20 13:07 | Consultation ---
History of Present Illness - Reason for Consult Consult date: 01/20/20 - History of Present Illness 80-year-old female past medical history hypertension, diabetes, GERD, depression brought to the hospital for altered mental status. As noted the patient was in a longterm, and was not acting in her usual manner. No other acute complaints were noted at the time. She was admitted for MARISOL and mental changes. Discharge planning was occurring, and an order for placement to occur a Covid test was required, which returned positive. She is not hypoxic or on supplemental oxygen. She remains confused. Febrile to 100.4 with a mild leukopenia of 2.6. COVID-19 testing positive. Not antibiotics, no cultures. Imaging personally reviewed: Chest x-ray: No acute abnormality. Past History Past Medical History: diabetes, GERD, hypertension, other (Deporession,) Past Surgical History: No surgical history, Other (Ostomy placement) Social history: no significant social history, alcohol abuse Family history: no significant family history Medications and Allergies Allergies Allergy/AdvReac Type Severity Reaction Status Date / Time No Known Allergies Allergy Verified 01/12/20 05:37 Home Medications Medication Instructions Recorded Confirmed Last Taken Type DULoxetine [Cymbalta] 60 mg PO QDAY 01/17/20 01/17/20 Unknown History Gabapentin 300 mg PO BID 01/17/20 01/17/20 Unknown History Insulin Glargine [Lantus VIAL] 12 units SUB-Q QHS 01/17/20 01/17/20 Unknown History Metformin HCl [metFORMIN] 1,000 mg PO BID 01/17/20 01/17/20 Unknown History Methotrexate 2.5 mg PO Q7D 01/17/20 01/17/20 Unknown History Omeprazole 20 mg PO QAM 01/17/20 01/17/20 Unknown History Tolterodine [Detrol LA] 4 mg PO QDAY 01/17/20 01/17/20 Unknown History Trazodone HCl 150 mg PO ONCE PRN MDD once daily 01/17/20 01/17/20 Unknown History carvediloL [Coreg] 12.5 mg PO BID 01/17/20 01/17/20 Unknown History Active Meds: Active Medications Acetaminophen (Tylenol) 650 mg PO Q4H PRN PRN Reason: Pain MILD(1-3)/Fever >100.5/BOO Last Admin: 01/19/20 05:03 Dose: 650 mg Documented by: Dextrose (D50w (25gm) Syringe) 50 ml IV Q30MIN PRN; Protocol PRN Reason: Hypoglycemia Insulin Human Lispro (Humalog) 0 unit SUB-Q ACHS LEONARD; Protocol Last Admin: 01/20/20 12:58 Dose: Not Given Documented by: Magnesium Hydroxide (Milk Of Magnesia) 30 ml PO Q4H PRN PRN Reason: Constipation Morphine Sulfate (Morphine) 2 mg IV Q4H PRN PRN Reason: Pain, Moderate (4-6) Last Admin: 01/15/20 22:03 Dose: 2 mg Documented by: Ondansetron HCl (Zofran) 4 mg IV Q8H PRN PRN Reason: Nausea And Vomiting Sodium Chloride (Sodium Chloride Flush Syringe 10 Ml) 10 ml IV BID LEONARD Last Admin: 01/19/20 21:22 Dose: 10 ml Documented by: Sodium Chloride (Sodium Chloride Flush Syringe 10 Ml) 10 ml IV PRN PRN PRN Reason: LINE FLUSH Review of Systems ROS unobtainable: due to mental status Physical Examination - Physical Exam Narrative exam: Physical exam deferred due to PPE conservation strategy. Please refer to primary team's note. - Constitutional Vitals: Vital Signs Temp Pulse Resp BP Pulse Ox 99.2 F 71 20 124/45 96 01/20/20 04:39 01/20/20 04:39 01/20/20 04:39 01/20/20 04:39 01/20/20 04:39 Temperature -Last 24 Hours Temperature 99.2 F Temperature 99.3 F Temperature 100.4 F Temperature 99.0 F Results - Labs CBC & Chem 7: 01/12/20 03:07 01/15/20 07:32 Labs: Abnormal lab results 01/19/20 01/19/20 01/19/20 Range/Units 16:41 23:00 23:00 D-Dimer 1552.39 H (0-234) ng/mlDDU POC Glucose 133 H (70-105) mg/dL Ferritin > 2000.0 H (10.0-200.0) ng/mL Lactate Dehydrogenase (91-180) units/L C-Reactive Protein (0.00-1.30) mg/dL Coronavirus (PCR) (Negative) 01/19/20 01/19/20 Range/Units 23:00 Unknown D-Dimer (0-234) ng/mlDDU POC Glucose (70-105) mg/dL Ferritin (10.0-200.0) ng/mL Lactate Dehydrogenase 413 H (91-180) units/L C-Reactive Protein 16.90 H (0.00-1.30) mg/dL Coronavirus (PCR) Positive A (Negative) Assessment and Plan Cultures: COVID-19 positive A/P: 80-year-old female past medical history hypertension, diabetes, GERD, depression admitted with altered mental status, incidentally found to be Covid positive. #COVID-19: Incidentally found to placement facility. Patient is not hypoxemic, no acute symptoms. Unclear where she is in the stage of her infection. #Leukopenia: Possibly secondary to COVID-19 #Diabetes: tight glycemic control for best outcomes. Recs: -Patient not short of breath or hypoxic no need for treatment of COVID-19 at this time. -Patient may be discharged from infectious disease perspective if accepted at facility. Dr. Nichols taking over tomorrow Thank you for the consult, we will continue to follow. Thiago Doll MD [facility] O: [phone] F: [phone]
--- NOTE | 2020-01-20 17:53 | Progress Note ---
Assessment and Plan Assessment and plan: --Febrile illness; COVID-19 positive Current Visit: Yes Status: Acute Plan to address problem: Contact isolation, droplet precautions Oxygen titrate O2 sats to more than 90% Steroids for total 10 days per protocol Follow ID evaluation and recommendations remdesivir, oxygen titrate O2 sats to more than 90% High inflammatory markers Home oxygen evaluation Patient is critically ill, with poor prognosis -- Altered mental state/acute metabolic encephalopathy Current Visit: Yes Status: Acute Plan to address problem: Etiology is unclear. Will monitor mental status. CT head is normal, Neuro evaluation noted and appreciated PT evaluation, for placement when stable --Type II diabetes mellitus Current Visit: Yes Status: Acute Plan to address problem: We will monitor Accu-Cheks. Sliding scale coverage ADA diet and insulin as needed --Hypertension Current Visit: Yes Status: Acute Plan to address problem: We will resume routine home medications on the monitor vital signs closely. --Acute renal failure present on admission; Current Visit: Yes Status: Acute Plan to address problem: Vasomotor nephropathy resolved --DVT prophylaxis Current Visit: Yes Status: Acute Plan to address problem: Patient on Lovenox --Full code status Current Visit: Yes Status: Acute Patient is critically ill with poor prognosis Severe COVID-19 infection 01/14/2020 -MARISOL resolved, hyperkalemia resolved. Altered mental status resolved. Patient is weak and states she is feeling sick, evaluated by physical therapy and recommend subacute rehab. We will put case management consult. 01/15/2020 -MARISOL resolved, hyperkalemia resolved. Patient was alert and oriented. It evaluated and recommended subacute rehab. 01/16/20; electrolytes within normal limits, patient feels better, awaiting placement 01/17/2020; clinically stable for discharge, pending placement 01/18/2020; Covid test sent for placement, stable for discharge, case management processing placement 01/19/2020; COVID-19 test positive, patient also has some low-grade fever, contact and droplet isolation ID consult, transfer to third floor Covid wing History Interval history: I have seen and examined the patient at the bedside this morning Isolation precautions PPE protocol strictly followed Patient complains of mild shortness of breath and generalized weakness T-max last 24 hours 100.4 F Vital signs noted Hospitalist Physical - Constitutional Vitals: Temp Pulse Resp BP Pulse Ox 98.1 F 75 20 129/55 99 12/04/20 12:03 01/20/20 12:03 01/20/20 12:03 01/20/20 12:03 01/20/20 14:59 General appearance: Present: no acute distress, well-nourished, obese (Morbidly obese) - EENT Eyes: Present: PERRL, EOM intact - Neck Neck: Present: supple, enlarged thyroid - Respiratory Respiratory effort: normal Respiratory: bilateral: diminished, rales, negative: rhonchi, wheezing - Cardiovascular Rhythm: regular Heart Sounds: Present: S1 & S2 - Extremities Extremities: no ischemia, No edema - Abdominal General gastrointestinal: soft, non-tender, non-distended, normal bowel sounds - Integumentary Integumentary: Present: clear, warm - Psychiatric Psychiatric: appropriate mood/affect, other (Minimal communication) - Neurologic Neurologic: other (Residual weakness, bedbound state) HEART Score - HEART Score Troponin: Troponin T < 0.010 ng/mL (0.00-0.029) 01/12/20 05:30 Results - Labs CBC & Chem 7: 01/12/20 03:07 01/15/20 07:32 Labs: Laboratory Last Values WBC 2.6 K/mm3 (4.5-11.0) L 01/12/20 03:07 RBC 3.53 M/mm3 (3.65-5.03) L 01/12/20 03:07 Hgb 11.0 gm/dl (10.1-14.3) 01/12/20 03:07 Hct 33.4 % (30.3-42.9) 01/12/20 03:07 MCV 95 fl (79-97) 01/12/20 03:07 MCH 31 pg (28-32) 01/12/20 03:07 MCHC 33 % (30-34) 01/12/20 03:07 RDW 15.3 % (13.2-15.2) H 01/12/20 03:07 Plt Count 38 K/mm3 (140-440) L 01/12/20 03:07 Lymph % (Auto) 21.0 % (13.4-35.0) 01/12/20 03:07 [place] % (Auto) 6.1 % (0.0-7.3) 01/12/20 03:07 Eos % (Auto) 0.7 % (0.0-4.3) 01/12/20 03:07 Baso % (Auto) 0.3 % (0.0-1.8) 01/12/20 03:07 Lymph # (Auto) 0.5 K/mm3 (1.2-5.4) L 01/12/20 03:07 [place] # (Auto) 0.2 K/mm3 (0.0-0.8) 01/12/20 03:07 Eos # (Auto) 0.0 K/mm3 (0.0-0.4) 01/12/20 03:07 Baso # (Auto) 0.0 K/mm3 (0.0-0.1) 01/12/20 03:07 Seg Neutrophils % 71.9 % (40.0-70.0) H 01/12/20 03:07 Seg Neutrophils # 1.8 K/mm3 (1.8-7.7) 01/12/20 03:07 D-Dimer 1552.39 ng/mlDDU (0-234) H 01/19/20 23:00 Sodium 139 mmol/L (137-145) 01/15/20 07:32 Potassium 4.1 mmol/L (3.6-5.0) 01/15/20 07:32 Chloride 106.4 mmol/L (98-107) 01/15/20 07:32 Carbon Dioxide 23 mmol/L (22-30) 01/15/20 07:32 Anion Gap 14 mmol/L 01/15/20 07:32 BUN 11 mg/dL (7-17) 01/15/20 07:32 Creatinine 0.9 mg/dL (0.6-1.2) 01/15/20 07:32 Estimated GFR > 60 ml/min 01/15/20 07:32 BUN/Creatinine Ratio 12 % 01/15/20 07:32 Glucose 116 mg/dL (65-100) H 01/15/20 07:32 POC Glucose 107 mg/dL (70-105) H 01/20/20 16:26 Lactic Acid 1.10 mmol/L (0.7-2.0) 01/12/20 03:07 Calcium 7.6 mg/dL (8.4-10.2) L 01/15/20 07:32 Ferritin > 2000.0 ng/mL (10.0-200.0) H 01/19/20 23:00 Total Bilirubin 0.30 mg/dL (0.1-1.2) 01/12/20 03:07 AST 21 units/L (5-40) 01/12/20 03:07 ALT 11 units/L (7-56) 01/12/20 03:07 Alkaline Phosphatase 33 units/L (35-129) L 01/12/20 03:07 Ammonia 11.0 umol/L (25-60) L 01/12/20 03:07 Lactate Dehydrogenase 413 units/L (91-180) H 01/19/20 23:00 Total Creatine Kinase 74 units/L (30-135) 01/12/20 03:07 Troponin T < 0.010 ng/mL (0.00-0.029) 01/12/20 05:30 C-Reactive Protein 16.90 mg/dL (0.00-1.30) H 01/19/20 23:00 Total Protein 6.0 g/dL (6.3-8.2) L 01/12/20 03:07 Albumin 3.4 g/dL (3.9-5) L 01/12/20 03:07 Albumin/Globulin Ratio 1.3 % 01/12/20 03:07 Urine Color Jaycee (Yellow) 01/12/20 Unknown Urine Turbidity Clear (Clear) 01/12/20 Unknown Urine pH 5.0 (5.0-7.0) 01/12/20 Unknown Ur Specific [place] 1.020 (1.003-1.030) 01/12/20 Unknown Urine Protein 30 mg/dl mg/dL (Negative) 01/12/20 Unknown Urine Glucose (UA) Neg mg/dL (Negative) 01/12/20 Unknown Urine Ketones Neg mg/dL (Negative) 01/12/20 Unknown Urine Blood Neg (Negative) 01/12/20 Unknown Urine Nitrite Neg (Negative) 01/12/20 Unknown Urine Bilirubin Neg (Negative) 01/12/20 Unknown Urine Urobilinogen < 2.0 mg/dL (<2.0) 01/12/20 Unknown Ur Leukocyte Esterase Neg (Negative) 01/12/20 Unknown Urine WBC (Auto) 4.0 /HPF (0.0-6.0) 01/12/20 Unknown Urine RBC (Auto) 4.0 /HPF (0.0-6.0) 01/12/20 Unknown Urine Bacteria (Auto) 1+ /HPF (Negative) 01/12/20 Unknown Urine Mucus Few /HPF 01/12/20 Unknown Urine Creatinine 125.0 mg/dL (0.1-20.0) H 01/12/20 13:01 Urine Sodium 127 mmol/L 01/12/20 13:01 Urine Total Protein 31 mg/dL (5-11.8) H 01/12/20 13:01 Salicylates < 0.3 mg/dL (2.8-20.0) L 01/12/20 03:07 Urine Opiates Screen Presumptive negative 01/12/20 Unknown Urine Methadone Screen Presumptive negative 01/12/20 Unknown Acetaminophen 5.0 ug/mL (10.0-30.0) L 01/12/20 03:07 Ur Barbiturates Screen Presumptive negative 01/12/20 Unknown Ur Phencyclidine Scrn Presumptive negative 01/12/20 Unknown Ur Amphetamines Screen Presumptive negative 01/12/20 Unknown U Benzodiazepines Scrn Presumptive negative 01/12/20 Unknown Urine Cocaine Screen Presumptive negative 01/12/20 Unknown U Marijuana (THC) Screen Presumptive negative 01/12/20 Unknown Drugs of Abuse Note Disclamer 01/12/20 Unknown Plasma/Serum Alcohol < 0.01 % (0-0.07) 01/12/20 03:07 Coronavirus (PCR) Positive (Negative) A 01/19/20 Unknown Khan/IV: Voiding Method Incontinent IV Catheter Type [Left Wrist] INT / Saline Lock IV Catheter Type [Right Distal INT / Saline Lock Port Antecubital] Active Medications - Current Medications Current Medications: Generic Name Dose Route Start Last Admin Trade Name Freq PRN Reason Stop Dose Admin Acetaminophen 650 mg 01/12/20 05:22 01/19/20 05:03 Tylenol PO 650 mg Q4H PRN Administration Pain MILD(1-3)/Fever >100.5/BOO Dexamethasone 6 mg 01/20/20 17:00 Decadron IV DAILY LEONARD Dextrose 50 ml 01/12/20 05:22 D50w (25gm) Syringe IV Q30MIN PRN Hypoglycemia Protocol REMDESIVIR 200 mg/ Sodium 250 mls @ 500 mls/hr 01/20/20 18:00 Chloride IV 01/20/20 18:29 ONCE ONE REMDESIVIR 100 mg/ Sodium 250 mls @ 500 mls/hr 01/21/20 21:00 Chloride IV 01/24/20 21:29 Q24HR@2100 [facility] Insulin Human Lispro 0 unit 01/12/20 07:30 01/20/20 12:58 Humalog SUB-Q Not Given ACHS [facility] Protocol Magnesium Hydroxide 30 ml 01/12/20 05:22 Milk Of Magnesia PO Q4H PRN Constipation Morphine Sulfate 2 mg 01/12/20 05:22 01/15/20 22:03 Morphine IV 2 mg Q4H PRN Administration Pain, Moderate (4-6) Ondansetron HCl 4 mg 01/12/20 05:22 Zofran IV Q8H PRN Nausea And Vomiting Sodium Chloride 10 ml 01/12/20 10:00 01/19/20 21:22 Sodium Chloride Flush Syringe 10 Ml IV 10 ml BID LEONARD Administration Sodium Chloride 10 ml 01/12/20 05:22 Sodium Chloride Flush Syringe 10 Ml IV PRN PRN LINE FLUSH Sodium Chloride 50 ml 01/20/20 18:00 Nacl 0.9% IV 01/24/20 21:31 Q24HR@2130 [facility] Nutrition/Malnutrition Assess - Dietary Evaluation Nutrition/Malnutrition Findings: Nutrition Notes Start: 01/12/20 10:30 Freq: Status: Active Protocol: Document 01/20/20 13:05 AB (Rec: 01/20/20 13:10 AB [id number]) Co-Sign 01/20/20 13:05 Nutrition Notes Initial or Follow up Reassessment Current Diagnosis Acute Kidney Injury,Diabetes, Hypertension Other Pertinent Diagnosis CA, AMS Current Diet Cardiac/Consistent CHO Labs/Tests Reviewed Pertinent Medications Reviewed Height 5 ft 6 in Weight 114.3 kg [place] Body Weight (kg) 59.09 BMI 40.6 Weight Status Morbidly Obese Subjective/Other Information Pt awake and responsive. ONS sitting next to bed unopened, per nurse. Nurse reports that pt has not had an appetite d/t COVID symptoms. Percent of energy/protein needs met: 0%/0% Burn Absent Trauma Absent GI Symptoms None Current % PO Negligible Minimum of two criteria No Energy Intake (severe) < or equal to 50% Estimated Energy Requirement > or equal to 5 days #1 Nutrition Diagnosis Inadequate oral intake Diagnosis Progress(for reassessment Continues documentation) Is patient on ventilator? No Is Patient Ambulatory and/or Out of Bed No REE-(Gracey-St. Jeor-confined to bed) 1967.916 Kcal/Kg value to use for calculation 12 Approximate Energy Requirements Using 1372 kcal/Kg Calculation Used for Recommendations Kcal/kg Additional Notes Protein needs are 87-104g (1-1.2g/kg Adj wt 86.5kg) Fluid needs are 1ml/kcal Nutrition Intervention Change Diet Order: Continue Add Supplement/Snack (indicate name/kcal Glucerna daily /protein ) Provides kCal: 220 Provides Protein (gm) 10 Goal #1 Meet at least 80% of energy and protein needs via PO and ONS when tolerated. Anticipated Discharge Needs: Cardiac/Consistent carb with ONS as needed Follow-Up By: 01/24/20 Additional Comments F/U for intakes and ONS tolerance/need
[2020-01-20] MEDS ORDERED: REMDESIVIR 100 MG VIAL IV ONE (18:00)
[2020-01-20] MEDS ORDERED: REMDESIVIR 200 MG in SODIUM CHLORIDE 0.9% 250ML 250 ML IV ONE (18:00)
[2020-01-20] MEDS: dexAMETHasone 4 MG/ML VIAL IV SCH (19:19)
--- NOTE | 2020-01-20 20:58 | XRay Report ---
CHEST 1 VIEW 7:16 PM INDICATION / CLINICAL INFORMATION: Fever/positive COVID /evaluate for pneumonia. COMPARISON: 01/12/20. FINDINGS: SUPPORT DEVICES: None. HEART / MEDIASTINUM: The heart size and pulmonary vasculature are normal. LUNGS / PLEURA: No significant pulmonary or pleural abnormality. No pneumothorax. ADDITIONAL FINDINGS: Moderate chronic elevation of the right hemidiaphragm. Surgical clips in the lef t axilla. Moderate degenerative changes involving the left glenohumeral joint. IMPRESSION: No acute abnormality or significant change. No evidence of pneumonia. Signer Name: Mj Matute MD Signed: 01/20/2020 8:54 PM Workstation Name: [id number]
[2020-01-20] MEDS: MORPHINE 2 MG/1 ML INJ IV PRN (21:40)
[2020-01-20] MEDS: SODIUM CHLORIDE 0.9% 50 ML IVPB IV SCH (21:40)
[2020-01-20] MEDS: ENOXAPARIN 40 MG/0.4 ML INJ SUB-Q SCH (21:41)
[2020-01-21 06:35] LABS: Hematocrit 27.6 % (30.3-42.9); Mean Corpuscular HGB Conc 33 % (30-34); Mean Corpuscular Volume 95 fl (79-97); Platelet Count 205 K/mm3 (140-440); Red Blood Count 2.91 M/mm3 (3.65-5.03); Red Cell Distribution Width 14.1 % (13.2-15.2)
[2020-01-21 07:07] LABS: Alanine Aminotransferase 37 units/L (7-56); BUN/Creatinine Ratio 23; Blood Urea Nitrogen 21 mg/dL (7-17); Calcium 8.4 mg/dL (8.4-10.2); Hemolysis Index 1
[2020-01-21 08:08] LABS: Anisocytosis 1+; Band Neutrophils # (Manual) 0.1 K/mm3; Basophils % (Manual) 0 % (0.0-1.8); Platelet Estimate Consistent w Auto; Total Cells Counted 50
[2020-01-21] MEDS: INSULIN LISPRO 100 UNIT/ML VIAL 3 mL SUB-Q SCH ×4 (08:25→22:36)
[2020-01-21] MEDS: dexAMETHasone 4 MG/ML VIAL IV SCH (11:24)
--- NOTE | 2020-01-21 18:09 | Progress Note ---
Assessment and Plan Assessment and plan: --Neutropenia; Current Visit: Yes Status: Acute. Plan to address problem: Secondary to underlying sepsis And severe Covid 19 infection Consider Neupogen if neutrophil counts drop Hematology consult if needed --Severe COVID-19 infection Current Visit: Yes Status: Acute Plan to address problem: Contact isolation, droplet precautions Oxygen titrate O2 sats to more than 90% Steroids for total 10 days per protocol remdesivir, oxygen titrate O2 sats to more than 90% High inflammatory markers Home oxygen evaluation Patient is critically ill, with poor prognosis ID following -- Altered mental state/acute metabolic encephalopathy POA Current Visit: Yes Status: Acute Plan to address problem: Etiology is unclear. Will monitor mental status. CT head is normal, Neuro evaluation noted and appreciated PT evaluation, for placement when stable --Type II diabetes mellitus Current Visit: Yes Status: Acute Plan to address problem: We will monitor Accu-Cheks. Sliding scale coverage ADA diet and insulin as needed --Hypertension Current Visit: Yes Status: Acute Plan to address problem: We will resume routine home medications on the monitor vital signs closely. --Acute renal failure present on admission; Current Visit: Yes Status: Acute Plan to address problem: Vasomotor nephropathy resolved --DVT prophylaxis Current Visit: Yes Status: Acute Plan to address problem: Patient on Lovenox --Moderate malnutrition Current Visit: Yes Status: Acute Plan to address problem: hypoalbuminemia, albumin 3.0 Nutrition supplements Nutrition consult if needed --Full code status Current Visit: Yes Status: Acute Patient is critically ill with poor prognosis Severe COVID-19 infection 01/14/2020 -MARISOL resolved, hyperkalemia resolved. Altered mental status resolved. Patient is weak and states she is feeling sick, evaluated by physical therapy and recommend subacute rehab. We will put case management consult. 01/15/2020 -MARISOL resolved, hyperkalemia resolved. Patient was alert and oriented. PT horacio luated and recommended subacute rehab. 01/16/20; electrolytes within normal limits, patient feels better, awaiting placement 01/17/2020; clinically stable for discharge, pending placement 01/18/2020; Covid test sent for placement, stable for discharge, case management processing placement 01/19/2020; COVID-19 test positive, patient also has some low-grade fever, contact and droplet isolation ID consult, transfer to third floor Covid wing 01/20/2020; patient is placed on IV steroids, remdesivir follow markers, ID evaluation noted and appreciated Patient is critically ill with poor prognosis 01/21/2020; neutropenia, secondary to underlying severe sepsis Closely monitor, consider Neupogen and neutropenia isolation if neutrophils drop further We will also consider hematology evaluation if needed Patient is critically ill with very poor prognosis History Interval history: I have seen and examined the patient at the bedside Patient's chart and medications reviewed Patient is critically ill with poor prognosis Complains of generalized weakness Vital signs noted Hospitalist Physical - Constitutional Vitals: Temp Pulse Resp BP Pulse Ox 97.7 F 56 L 20 160/60 98 01/21/20 10:40 01/21/20 14:58 01/21/20 10:40 01/21/20 10:40 01/21/20 10:00 General appearance: Present: no acute distress, well-nourished, obese (Morbidly obese) - EENT Eyes: Present: PERRL, EOM intact - Neck Neck: Present: supple, normal ROM - Respiratory Respiratory effort: normal Respiratory: bilateral: diminished, rhonchi, negative: rales, wheezing - Cardiovascular Rhythm: regular Heart Sounds: Present: S1 & S2 - Extremities Extremities: no ischemia, No edema - Abdominal General gastrointestinal: soft, non-tender, non-distended, normal bowel sounds - Integumentary Integumentary: Present: clear, warm - Psychiatric Psychiatric: appropriate mood/affect, cooperative - Neurologic Neurologic: other (Residual weakness) HEART Score - HEART Score Troponin: Troponin T < 0.010 ng/mL (0.00-0.029) 01/12/20 05:30 Results - Labs CBC & Chem 7: 01/21/20 05:21 01/21/20 05:21 Labs: Laboratory Last Values WBC 1.8 K/mm3 (4.5-11.0) L* 01/21/20 05:21 RBC 2.91 M/mm3 (3.65-5.03) L 01/21/20 05:21 Hgb 9.0 gm/dl (10.1-14.3) L 01/21/20 05:21 Hct 27.6 % (30.3-42.9) L 01/21/20 05:21 MCV 95 fl (79-97) 01/21/20 05:21 MCH 31 pg (28-32) 01/21/20 05:21 MCHC 33 % (30-34) 01/21/20 05:21 RDW 14.1 % (13.2-15.2) 01/21/20 05:21 Plt Count 205 K/mm3 (140-440) 01/21/20 05:21 Lymph % (Auto) 21.0 % (13.4-35.0) 01/12/20 03:07 [place] % (Auto) 6.1 % (0.0-7.3) 01/12/20 03:07 Eos % (Auto) 0.7 % (0.0-4.3) 01/12/20 03:07 Baso % (Auto) 0.3 % (0.0-1.8) 01/12/20 03:07 Lymph # (Auto) 0.5 K/mm3 (1.2-5.4) L 01/12/20 03:07 [place] # (Auto) 0.2 K/mm3 (0.0-0.8) 01/12/20 03:07 Eos # (Auto) 0.0 K/mm3 (0.0-0.4) 01/12/20 03:07 Baso # (Auto) 0.0 K/mm3 (0.0-0.1) 01/12/20 03:07 Add Manual Diff Complete 01/21/20 05:21 Total Counted 50 01/21/20 05:21 Seg Neutrophils % 71.9 % (40.0-70.0) H 01/12/20 03:07 Seg Neuts % (Manual) 86.0 % (40.0-70.0) H 01/21/20 05:21 Band Neutrophils % 4.0 % 01/21/20 05:21 Lymphocytes % (Manual) 4.0 % (13.4-35.0) L 01/21/20 05:21 Reactive Lymphs % (Man) 0 % 01/21/20 05:21 Monocytes % (Manual) 4.0 % (0.0-7.3) 01/21/20 05:21 Eosinophils % (Manual) 2.0 % (0.0-4.3) 01/21/20 05:21 Basophils % (Manual) 0 % (0.0-1.8) 01/21/20 05:21 Metamyelocytes % 0 % 01/21/20 05:21 Myelocytes % 0 % 01/21/20 05:21 Promyelocytes % 0 % 01/21/20 05:21 Blast Cells % 0 % 01/21/20 05:21 Nucleated RBC % Not Reportable 01/21/20 05:21 Seg Neutrophils # 1.8 K/mm3 (1.8-7.7) 01/12/20 03:07 Seg Neutrophils # Man 1.5 K/mm3 (1.8-7.7) L 01/21/20 05:21 Band Neutrophils # 0.1 K/mm3 01/21/20 05:21 Lymphocytes # (Manual) 0.1 K/mm3 (1.2-5.4) L 01/21/20 05:21 Abs React Lymphs (Man) 0.0 K/mm3 01/21/20 05:21 Monocytes # (Manual) 0.1 K/mm3 (0.0-0.8) 01/21/20 05:21 Eosinophils # (Manual) 0.0 K/mm3 (0.0-0.4) 01/21/20 05:21 Basophils # (Manual) 0.0 K/mm3 (0.0-0.1) 01/21/20 05:21 Metamyelocytes # 0.0 K/mm3 01/21/20 05:21 Myelocytes # 0.0 K/mm3 01/21/20 05:21 Promyelocytes # 0.0 K/mm3 01/21/20 05:21 Blast Cells # 0.0 K/mm3 01/21/20 05:21 WBC Morphology Not Reportable 01/21/20 05:21 Hypersegmented Neuts Not Reportable 01/21/20 05:21 Hyposegmented Neuts Not Reportable 01/21/20 05:21 Hypogranular Neuts Not Reportable 01/21/20 05:21 Smudge Cells Not Reportable 01/21/20 05:21 Toxic Granulation Not Reportable 01/21/20 05:21 Toxic Vacuolation Not Reportable 01/21/20 05:21 Dohle Bodies Not Reportable 01/21/20 05:21 Pelger-Huet Anomaly Not Reportable 01/21/20 05:21 Stephen Rods Not Reportable 01/21/20 05:21 Platelet Estimate Consistent w auto 01/21/20 05:21 Clumped Platelets Not Reportable 01/21/20 05:21 Plt Clumps, EDTA Not Reportable 01/21/20 05:21 Large Platelets Not Reportable 01/21/20 05:21 Giant Platelets Not Reportable 01/21/20 05:21 Platelet Satelliting Not Reportable 01/21/20 05:21 Plt Morphology Comment Not Reportable 01/21/20 05:21 RBC Morphology Not Reportable 01/21/20 05:21 Dimorphic RBCs Not Reportable 01/21/20 05:21 Polychromasia Not Reportable 01/21/20 05:21 Hypochromasia Not Reportable 01/21/20 05:21 Poikilocytosis Not Reportable 01/21/20 05:21 Anisocytosis 1+ 01/21/20 05:21 Microcytosis Not Reportable 01/21/20 05:21 Macrocytosis Not Reportable 01/21/20 05:21 Spherocytes Not Reportable 01/21/20 05:21 Pappenheimer Bodies Not Reportable 01/21/20 05:21 Sickle Cells Not Reportable 01/21/20 05:21 Target Cells Not Reportable 01/21/20 05:21 Tear Drop Cells Not Reportable 01/21/20 05:21 Ovalocytes Not Reportable 01/21/20 05:21 Helmet Cells Not Reportable 01/21/20 05:21 [place] Bodies Not Reportable 01/21/20 05:21 [place] Rings Not Reportable 01/21/20 05:21 [place] Cells Not Reportable 01/21/20 05:21 Bite Cells Not Reportable 01/21/20 05:21 Crenated Cell Not Reportable 01/21/20 05:21 Elliptocytes Not Reportable 01/21/20 05:21 Acanthocytes (Spur) Not Reportable 01/21/20 05:21 Rouleaux Not Reportable 01/21/20 05:21 Hemoglobin C Crystals Not Reportable 01/21/20 05:21 Schistocytes Not Reportable 01/21/20 05:21 Malaria parasites Not Reportable 01/21/20 05:21 Chaitanya Bodies Not Reportable 01/21/20 05:21 Hem Pathologist Commnt No 01/21/20 05:21 D-Dimer 1552.39 ng/mlDDU (0-234) H 01/19/20 23:00 Sodium 142 mmol/L (137-145) 01/21/20 05:21 Potassium 5.1 mmol/L (3.6-5.0) H 01/21/20 05:21 Chloride 104.9 mmol/L (98-107) 01/21/20 05:21 Carbon Dioxide 23 mmol/L (22-30) 01/21/20 05:21 Anion Gap 19 mmol/L 01/21/20 05:21 BUN 21 mg/dL (7-17) H 01/21/20 05:21 Creatinine 0.9 mg/dL (0.6-1.2) 01/21/20 05:21 Estimated GFR > 60 ml/min 01/21/20 05:21 BUN/Creatinine Ratio 23 % 01/21/20 05:21 Glucose 198 mg/dL (65-100) H 01/21/20 05:21 POC Glucose 247 mg/dL (70-105) H 01/21/20 16:12 Lactic Acid 1.10 mmol/L (0.7-2.0) 01/12/20 03:07 Calcium 8.4 mg/dL (8.4-10.2) 01/21/20 05:21 Ferritin > 2000.0 ng/mL (10.0-200.0) H 01/19/20 23:00 Total Bilirubin 0.20 mg/dL (0.1-1.2) 01/21/20 05:21 AST 45 units/L (5-40) H 01/21/20 05:21 ALT 37 units/L (7-56) 01/21/20 05:21 Alkaline Phosphatase 33 units/L (35-129) L 01/21/20 05:21 Ammonia 11.0 umol/L (25-60) L 01/12/20 03:07 Lactate Dehydrogenase 413 units/L (91-180) H 01/19/20 23:00 Total Creatine Kinase 74 units/L (30-135) 01/12/20 03:07 Troponin T < 0.010 ng/mL (0.00-0.029) 01/12/20 05:30 C-Reactive Protein 16.90 mg/dL (0.00-1.30) H 01/19/20 23:00 Total Protein 6.5 g/dL (6.3-8.2) 01/21/20 05:21 Albumin 3.0 g/dL (3.9-5) L 01/21/20 05:21 Albumin/Globulin Ratio 0.9 % 01/21/20 05:21 Procalcitonin < 0.05 ng/mL (<0.15) 01/20/20 16:54 Urine Color Jaycee (Yellow) 01/12/20 Unknown Urine Turbidity Clear (Clear) 01/12/20 Unknown Urine pH 5.0 (5.0-7.0) 01/12/20 Unknown Ur Specific [place] 1.020 (1.003-1.030) 01/12/20 Unknown Urine Protein 30 mg/dl mg/dL (Negative) 01/12/20 Unknown Urine Glucose (UA) Neg mg/dL (Negative) 01/12/20 Unknown Urine Ketones Neg mg/dL (Negative) 01/12/20 Unknown Urine Blood Neg (Negative) 01/12/20 Unknown Urine Nitrite Neg (Negative) 01/12/20 Unknown Urine Bilirubin Neg (Negative) 01/12/20 Unknown Urine Urobilinogen < 2.0 mg/dL (<2.0) 01/12/20 Unknown Ur Leukocyte Esterase Neg (Negative) 01/12/20 Unknown Urine WBC (Auto) 4.0 /HPF (0.0-6.0) 01/12/20 Unknown Urine RBC (Auto) 4.0 /HPF (0.0-6.0) 01/12/20 Unknown Urine Bacteria (Auto) 1+ /HPF (Negative) 01/12/20 Unknown Urine Mucus Few /HPF 01/12/20 Unknown Urine Creatinine 125.0 mg/dL (0.1-20.0) H 01/12/20 13:01 Urine Sodium 127 mmol/L 01/12/20 13:01 Urine Total Protein 31 mg/dL (5-11.8) H 01/12/20 13:01 Salicylates < 0.3 mg/dL (2.8-20.0) L 01/12/20 03:07 Urine Opiates Screen Presumptive negative 01/12/20 Unknown Urine Methadone Screen Presumptive negative 01/12/20 Unknown Acetaminophen 5.0 ug/mL (10.0-30.0) L 01/12/20 03:07 Ur Barbiturates Screen Presumptive negative 01/12/20 Unknown Ur Phencyclidine Scrn Presumptive negative 01/12/20 Unknown Ur Amphetamines Screen Presumptive negative 01/12/20 Unknown U Benzodiazepines Scrn Presumptive negative 01/12/20 Unknown Urine Cocaine Screen Presumptive negative 01/12/20 Unknown U Marijuana (THC) Screen Presumptive negative 01/12/20 Unknown Drugs of Abuse Note Disclamer 01/12/20 Unknown Plasma/Serum Alcohol < 0.01 % (0-0.07) 01/12/20 03:07 Coronavirus (PCR) Positive (Negative) A 01/19/20 Unknown Khan/IV: Voiding Method Toilet IV Catheter Type [Left Wrist] INT / Saline Lock IV Catheter Type [Right Distal INT / Saline Lock Port Antecubital] Active Medications - Current Medications Current Medications: Generic Name Dose Route Start Last Admin Trade Name Freq PRN Reason Stop Dose Admin Acetaminophen 650 mg 01/12/20 05:22 01/19/20 05:03 Tylenol PO 650 mg Q4H PRN Administration Pain MILD(1-3)/Fever >100.5/BOO Dexamethasone 6 mg 01/20/20 17:00 01/21/20 11:24 Decadron IV 6 mg DAILY LEONARD Administration Dextrose 50 ml 01/12/20 05:22 D50w (25gm) Syringe IV Q30MIN PRN Hypoglycemia Protocol Enoxaparin Sodium 40 mg 01/20/20 22:00 01/20/20 21:41 Enoxaparin SUB-Q 40 mg QDAY@2200 LEONARD Administration Protocol REMDESIVIR 100 mg/ Sodium 250 mls @ 500 mls/hr 01/21/20 21:00 Chloride IV 01/24/20 21:29 Q24HR@2100 [facility] Insulin Human Lispro 0 unit 01/12/20 07:30 01/21/20 12:59 Humalog SUB-Q Not Given ACHS [facility] Protocol Magnesium Hydroxide 30 ml 01/12/20 05:22 Milk Of Magnesia PO Q4H PRN Constipation Morphine Sulfate 2 mg 01/12/20 05:22 01/20/20 21:40 Morphine IV 2 mg Q4H PRN Administration Pain, Moderate (4-6) Ondansetron HCl 4 mg 01/12/20 05:22 Zofran IV Q8H PRN Nausea And Vomiting Sodium Chloride 10 ml 01/12/20 10:00 01/21/20 11:25 Sodium Chloride Flush Syringe 10 Ml IV 10 ml BID LEONARD Administration Sodium Chloride 10 ml 01/12/20 05:22 Sodium Chloride Flush Syringe 10 Ml IV PRN PRN LINE FLUSH Sodium Chloride 50 ml 01/20/20 18:00 01/20/20 21:40 Nacl 0.9% IV 01/24/20 21:31 50 ml Q24HR@2130 LEONARD Administration Nutrition/Malnutrition Assess - Dietary Evaluation Nutrition/Malnutrition Findings: Nutrition Notes Start: 01/12/20 1 0:30 Freq: Status: Active Protocol: Document 01/20/20 13:05 AB (Rec: 01/20/20 13:10 AB [id number]) Co-Sign 01/20/20 13:05 MK Nutrition Notes Initial or Follow up Reassessment Current Diagnosis Acute Kidney Injury,Diabetes, Hypertension Other Pertinent Diagnosis CA, AMS Current Diet Cardiac/Consistent CHO Labs/Tests Reviewed Pertinent Medications Reviewed Height 5 ft 6 in Weight 114.3 kg [place] Body Weight (kg) 59.09 BMI 40.6 Weight Status Morbidly Obese Subjective/Other Information Pt awake and responsive. ONS sitting next to bed unopened, per nurse. Nurse reports that pt has not had an appetite d/t COVID symptoms. Percent of energy/protein needs met: 0%/0% Burn Absent Trauma Absent GI Symptoms None Current % PO Negligible Minimum of two criteria No Energy Intake (severe) < or equal to 50% Estimated Energy Requirement > or equal to 5 days #1 Nutrition Diagnosis Inadequate oral intake Diagnosis Progress(for reassessment Continues documentation) Is patient on ventilator? No Is Patient Ambulatory and/or Out of Bed No REE-([facility]-confined to bed) [phone] Kcal/Kg value to use for calculation 12 Approximate Energy Requirements Using 1372 kcal/Kg Calculation Used for Recommendations Kcal/kg Additional Notes Protein needs are 87-104g (1-1.2g/kg Adj wt 86.5kg) Fluid needs are 1ml/kcal Nutrition Intervention Change Diet Order: Continue Add Supplement/Snack (indicate name/kcal Glucerna daily /protein ) Provides kCal: 220 Provides Protein (gm) 10 Goal #1 Meet at least 80% of energy and protein needs via PO and ONS when tolerated. Anticipated Discharge Needs: Cardiac/Consistent carb with ONS as needed Follow-Up By: 12/08/20 Additional Comments F/U for intakes and ONS tolerance/need
[2020-01-21] MEDS: REMDESIVIR 100 MG in SODIUM CHLORIDE 0.9% 250ML 250 ML IV SCH (21:39)
[2020-01-21] MEDS: ENOXAPARIN 40 MG/0.4 ML INJ SUB-Q SCH (21:41)
[2020-01-21] MEDS: SODIUM CHLORIDE 0.9% 50 ML IVPB IV SCH (23:15)
[2020-01-22] MEDS: INSULIN LISPRO 100 UNIT/ML VIAL 3 mL SUB-Q SCH ×5 (08:17→22:07)
[2020-01-22] MEDS: dexAMETHasone 4 MG/ML VIAL IV SCH (09:47)
--- NOTE | 2020-01-22 14:57 | Progress Note ---
Assessment and Plan Assessment and plan: --Neutropenia; improved[1.8-3.8] Current Visit: Yes Status: Acute. Plan to address problem: Secondary to underlying sepsis And severe Covid 19 infection Consider Neupogen if neutrophil counts drop Hematology consult if needed --Severe thrombocytopenia; Current Visit: Yes Status: Acute. Plan to address problem: Improved [phone] Closely monitor --Severe COVID-19 infection Current Visit: Yes Status: Acute. Plan to address problem: Contact isolation, droplet precautions Oxygen titrate O2 sats to more than 90% Steroids for total 10 days per protocol remdesivir, oxygen titrate O2 sats to more than 90% High inflammatory markers Home oxygen evaluation Patient is critically ill, with poor prognosis ID following -- Acute toxic metabolic encephalopathy POA Current Visit: Yes Status: Acute Plan to address problem: Underlying disease process , electrolyte abnormalities Severe neutropenia and thrombocytopenia CT head is normal, Neuro evaluation noted and appreciated PT evaluation, for placement when stable --Type II diabetes mellitus Current Visit: Yes Status: Acute Plan to address problem: We will monitor Accu-Cheks. Sliding scale coverage ADA diet and insulin as needed --Hypertension Current Visit: Yes Status: Acute Plan to address problem: We will resume routine home medications on the monitor vital signs closely. --Acute renal failure present on admission; Current Visit: Yes Status: Acute Plan to address problem: Vasomotor nephropathy resolved --DVT prophylaxis Current Visit: Yes Status: Acute Plan to address problem: Patient on Lovenox --Moderate malnutrition Current Visit: Yes Status: Acute Plan to address problem: hypoalbuminemia, albumin 3.0 Nutrition supplements Nutrition consult if needed --Full code status Current Visit: Yes Status: Acute Patient is critically ill with poor prognosis Severe COVID-19 infection 01/14/2020 -MARISOL resolved, hyperkalemia resolved. Altered mental status resolved. Patient is weak and states she is feeling sick, evaluated by physical therapy and recommend subacute rehab. We will put case management consult. 01/15/2020 -MARISOL resolved, hyperkalemia resolved. Patient was alert and oriented. PT evaluated and recommended subacute rehab. 01/16/20; electrolytes within normal limits, patient feels better, awaiting placement 01/17/2020; clinically stable for discharge, pending placement 01/18/2020; Covid test sent for placement, stable for discharge, case management processing placement 01/19/2020; COVID-19 test positive, patient also has some low-grade fever, contact and droplet isolation ID consult, transfer to third floor Covid wing 01/20/2020; patient is placed on IV steroids, remdesivir follow markers, ID evaluation noted and appreciated Patient is critically ill with poor prognosis 01/21/2020; neutropenia, secondary to underlying severe sepsis Closely monitor, consider Neupogen and neutropenia isolation if neutrophils drop further We will also consider hematology evaluation if needed Patient is critically ill with very poor prognosis History Interval history: I have seen and examined the patient at the bedside I have followed strict isolation precautions and PPE protocols while examining the patient Patient's chart and medications reviewed, Vital signs noted Patient complains of generalized weakness Hospitalist Physical - Constitutional Vitals: Temp Pulse Resp BP Pulse Ox 97.9 F 88 18 129/76 91 01/22/20 11:55 01/22/20 11:55 01/22/20 11:55 01/22/20 11:55 01/22/20 11:55 General appearance: Present: mild distress, well-nourished, obese (Morbidly obese) - EENT Eyes: Present: PERRL, EOM intact - Neck Neck: Present: supple, normal ROM - Respiratory Respiratory effort: normal Respiratory: bilateral: diminished, rhonchi, negative: rales, wheezing - Cardiovascular Rhythm: regular Heart Sounds: Present: S1 & S2 - Extremities Extremities: no ischemia Extremity abnormal: edema - Abdominal General gastrointestinal: soft, non-tender, non-distended, normal bowel sounds - Integumentary Integumentary: Present: clear, warm - Psychiatric Psychiatric: appropriate mood/affect, cooperative - Neurologic Neurologic: moves all extremities HEART Score - HEART Score Troponin: Troponin T < 0.010 ng/mL (0.00-0.029) 01/12/20 05:30 Results - Labs CBC & Chem 7: 01/22/20 15:39 01/21/20 05:21 Labs: Laboratory Last Values WBC 1.8 K/mm3 (4.5-11.0) L* 01/21/20 05:21 RBC 2.91 M/mm3 (3.65-5.03) L 01/21/20 05:21 Hgb 9.0 gm/dl (10.1-14.3) L 01/21/20 05:21 Hct 27.6 % (30.3-42.9) L 01/21/20 05:21 MCV 95 fl (79-97) 01/21/20 05:21 MCH 31 pg (28-32) 01/21/20 05:21 MCHC 33 % (30-34) 01/21/20 05:21 RDW 14.1 % (13.2-15.2) 01/21/20 05:21 Plt Count 205 K/mm3 (140-440) 01/21/20 05:21 Lymph % (Auto) 21.0 % (13.4-35.0) 01/12/20 03:07 Hall % (Auto) 6.1 % (0.0-7.3) 01/12/20 03:07 Eos % (Auto) 0.7 % (0.0-4.3) 01/12/20 03:07 Baso % (Auto) 0.3 % (0.0-1.8) 01/12/20 03:07 Lymph # (Auto) 0.5 K/mm3 (1.2-5.4) L 01/12/20 03:07 [place] # (Auto) 0.2 K/mm3 (0.0-0.8) 01/12/20 03:07 Eos # (Auto) 0.0 K/mm3 (0.0-0.4) 01/12/20 03:07 Baso # (Auto) 0.0 K/mm3 (0.0-0.1) 01/12/20 03:07 Add Manual Diff Complete 01/21/20 05:21 Total Counted 50 01/21/20 05:21 Seg Neutrophils % 71.9 % (40.0-70.0) H 01/12/20 03:07 Seg Neuts % (Manual) 86.0 % (40.0-70.0) H 01/21/20 05:21 Band Neutrophils % 4.0 % 01/21/20 05:21 Lymphocytes % (Manual) 4.0 % (13.4-35.0) L 01/21/20 05:21 Reactive Lymphs % (Man) 0 % 01/21/20 05:21 Monocytes % (Manual) 4.0 % (0.0-7.3) 01/21/20 05:21 Eosinophils % (Manual) 2.0 % (0.0-4.3) 01/21/20 05:21 Basophils % (Manual) 0 % (0.0-1.8) 01/21/20 05:21 Metamyelocytes % 0 % 01/21/20 05:21 Myelocytes % 0 % 01/21/20 05:21 Promyelocytes % 0 % 01/21/20 05:21 Blast Cells % 0 % 01/21/20 05:21 Nucleated RBC % Not Reportable 01/21/20 05:21 Seg Neutrophils # 1.8 K/mm3 (1.8-7.7) 01/12/20 03:07 Seg Neutrophils # Man 1.5 K/mm3 (1.8-7.7) L 01/21/20 05:21 Band Neutrophils # 0.1 K/mm3 01/21/20 05:21 Lymphocytes # (Manual) 0.1 K/mm3 (1.2-5.4) L 01/21/20 05:21 Abs React Lymphs (Man) 0.0 K/mm3 01/21/20 05:21 Monocytes # (Manual) 0.1 K/mm3 (0.0-0.8) 01/21/20 05:21 Eosinophils # (Manual) 0.0 K/mm3 (0.0-0.4) 01/21/20 05:21 Basophils # (Manual) 0.0 K/mm3 (0.0-0.1) 01/21/20 05:21 Metamyelocytes # 0.0 K/mm3 01/21/20 05:21 Myelocytes # 0.0 K/mm3 01/21/20 05:21 Promyelocytes # 0.0 K/mm3 01/21/20 05:21 Blast Cells # 0.0 K/mm3 01/21/20 05:21 WBC Morphology Not Reportable 01/21/20 05:21 Hypersegmented Neuts Not Reportable 01/21/20 05:21 Hyposegmented Neuts Not Reportable 01/21/20 05:21 Hypogranular Neuts Not Reportable 01/21/20 05:21 Smudge Cells Not Reportable 01/21/20 05:21 Toxic Granulation Not Reportable 01/21/20 05:21 Toxic Vacuolation Not Reportable 01/21/20 05:21 Dohle Bodies Not Reportable 01/21/20 05:21 Pelger-Huet Anomaly Not Reportable 01/21/20 05:21 Stephen Rods Not Reportable 01/21/20 05:21 Platelet Estimate Consistent w auto 01/21/20 05:21 Clumped Platelets Not Reportable 01/21/20 05:21 Plt Clumps, EDTA Not Reportable 01/21/20 05:21 Large Platelets Not Reportable 01/21/20 05:21 Giant Platelets Not Reportable 01/21/20 05:21 Platelet Satelliting Not Reportable 01/21/20 05:21 Plt Morphology Comment Not Reportable 01/21/20 05:21 RBC Morphology Not Reportable 01/21/20 05:21 Dimorphic RBCs Not Reportable 01/21/20 05:21 Polychromasia Not Reportable 01/21/20 05:21 Hypochromasia Not Reportable 01/21/20 05:21 Poikilocytosis Not Reportable 01/21/20 05:21 Anisocytosis 1+ 01/21/20 05:21 Microcytosis Not Reportable 01/21/20 05:21 Macrocytosis Not Reportable 01/21/20 05:21 Spherocytes Not Reportable 01/21/20 05:21 Pappenheimer Bodies Not Reportable 01/21/20 05:21 Sickle Cells Not Reportable 01/21/20 05:21 Target Cells Not Reportable 01/21/20 05:21 Tear Drop Cells Not Reportable 01/21/20 05:21 Ovalocytes Not Reportable 01/21/20 05:21 Helmet Cells Not Reportable 01/21/20 05:21 Rowe-Pinal Bodies Not Reportable 01/21/20 05:21 Spencer Rings Not Reportable 01/21/20 05:21 Marvell Cells Not Reportable 01/21/20 05:21 Bite Cells Not Reportable 01/21/20 05:21 Crenated Cell Not Reportable 01/21/20 05:21 Elliptocytes Not Reportable 01/21/20 05:21 Acanthocytes (Spur) Not Reportable 01/21/20 05:21 Rouleaux Not Reportable 01/21/20 05:21 Hemoglobin C Crystals Not Reportable 01/21/20 05:21 Schistocytes Not Reportable 01/21/20 05:21 Malaria parasites Not Reportable 01/21/20 05:21 Chaitanya Bodies Not Reportable 01/21/20 05:21 Hem Pathologist Commnt No 01/21/20 05:21 D-Dimer 1552.39 ng/mlDDU (0-234) H 01/19/20 23:00 Sodium 142 mmol/L (137-145) 01/21/20 05:21 Potassium 5.1 mmol/L (3.6-5.0) H 01/21/20 05:21 Chloride 104.9 mmol/L (98-107) 01/21/20 05:21 Carbon Dioxide 23 mmol/L (22-30) 01/21/20 05:21 Anion Gap 19 mmol/L 01/21/20 05:21 BUN 21 mg/dL (7-17) H 01/21/20 05:21 Creatinine 0.9 mg/dL (0.6-1.2) 01/21/20 05:21 Estimated GFR > 60 ml/min 01/21/20 05:21 BUN/Creatinine Ratio 23 % 01/21/20 05:21 Glucose 198 mg/dL (65-100) H 01/21/20 05:21 POC Glucose 174 mg/dL (70-105) H 01/22/20 11:04 Lactic Acid 1.10 mmol/L (0.7-2.0) 01/12/20 03:07 Calcium 8.4 mg/dL (8.4-10.2) 01/21/20 05:21 Ferritin > 2000.0 ng/mL (10.0-200.0) H 01/19/20 23:00 Total Bilirubin 0.20 mg/dL (0.1-1.2) 01/21/20 05:21 AST 45 units/L (5-40) H 01/21/20 05:21 ALT 37 units/L (7-56) 01/21/20 05:21 Alkaline Phosphatase 33 units/L (35-129) L 01/21/20 05:21 Ammonia 11.0 umol/L (25-60) L 01/12/20 03:07 Lactate Dehydrogenase 413 units/L (91-180) H 01/19/20 23:00 Total Creatine Kinase 74 units/L (30-135) 01/12/20 03:07 Troponin T < 0.010 ng/mL (0.00-0.029) 01/12/20 05:30 C-Reactive Protein 16.90 mg/dL (0.00-1.30) H 01/19/20 23:00 Total Protein 6.5 g/dL (6.3-8.2) 01/21/20 05:21 Albumin 3.0 g/dL (3.9-5) L 01/21/20 05:21 Albumin/Globulin Ratio 0.9 % 01/21/20 05:21 Procalcitonin < 0.05 ng/mL (<0.15) 01/20/20 16:54 Urine Color Jaycee (Yellow) 01/12/20 Unknown Urine Turbidity Clear (Clear) 01/12/20 Unknown Urine pH 5.0 (5.0-7.0) 01/12/20 Unknown Ur Specific Bowen 1.020 (1.003-1.030) 01/12/20 Unknown Urine Protein 30 mg/dl mg/dL (Negative) 01/12/20 Unknown Urine Glucose (UA) Neg mg/dL (Negative) 01/12/20 Unknown Urine Ketones Neg mg/dL (Negative) 01/12/20 Unknown Urine Blood Neg (Negative) 01/12/20 Unknown Urine Nitrite Neg (Negative) 01/12/20 Unknown Urine Bilirubin Neg (Negative) 01/12/20 Unknown Urine Urobilinogen < 2.0 mg/dL (<2.0) 01/12/20 Unknown Ur Leukocyte Esterase Neg (Negative) 01/12/20 Unknown Urine WBC (Auto) 4.0 /HPF (0.0-6.0) 01/12/20 Unknown Urine RBC (Auto) 4.0 /HPF (0.0-6.0) 01/12/20 Unknown Urine Bacteria (Auto) 1+ /HPF (Negative) 01/12/20 Unknown Urine Mucus Few /HPF 01/12/20 Unknown Urine Creatinine 125.0 mg/dL (0.1-20.0) H 01/12/20 13:01 Urine Sodium 127 mmol/L 01/12/20 13:01 Urine Total Protein 31 mg/dL (5-11.8) H 01/12/20 13:01 Salicylates < 0.3 mg/dL (2.8-20.0) L 01/12/20 03:07 Urine Opiates Screen Presumptive negative 01/12/20 Unknown Urine Methadone Screen Presumptive negative 01/12/20 Unknown Acetaminophen 5.0 ug/mL (10.0-30.0) L 01/12/20 03:07 Ur Barbiturates Screen Presumptive negative 01/12/20 Unknown Ur Phencyclidine Scrn Presumptive negative 01/12/20 Unknown Ur Amphetamines Screen Presumptive negative 01/12/20 Unknown U Benzodiazepines Scrn Presumptive negative 01/12/20 Unknown Urine Cocaine Screen Presumptive negative 01/12/20 Unknown U Marijuana (THC) Screen Presumptive negative 01/12/20 Unknown Drugs of Abuse Note Disclamer 01/12/20 Unknown Plasma/Serum Alcohol < 0.01 % (0-0.07) 01/12/20 03:07 Coronavirus (PCR) Positive (Negative) A 01/19/20 Unknown Khan/IV: Voiding Method External Female Catheter IV Catheter Type [Left Forearm INT / Saline Lock ] IV Catheter Type [Right Upper INT / Saline Lock arm] IV Catheter Type [Left Wrist] INT / Saline Lock IV Catheter Type [Right Distal INT / Saline Lock Port Antecubital] Active Medications - Current Medications Current Medications: Generic Name Dose Route Start Last Admin Trade Name Freq PRN Reason Stop Dose Admin Acetaminophen 650 mg 01/12/20 05:22 01/19/20 05:03 Tylenol PO 650 mg Q4H PRN Administration Pain MILD(1-3)/Fever >100.5/BOO Dexamethasone 6 mg 01/20/20 17:00 01/22/20 09:47 Decadron IV 6 mg DAILY LEONARD Administration Dextrose 50 ml 01/12/20 05:22 D50w (25gm) Syringe IV Q30MIN PRN Hypoglycemia Protocol Enoxaparin Sodium 40 mg 01/20/20 22:00 01/21/20 21:41 Enoxaparin SUB-Q 40 mg QDAY@2200 LEONARD Administration Protocol REMDESIVIR 100 mg/ Sodium 250 mls @ 500 mls/hr 01/21/20 21:00 01/21/20 21:39 Chloride IV 01/24/20 21:29 500 mls/hr Q24HR@2100 LEONARD Administration Insulin Human Lispro 0 unit 01/12/20 07:30 01/22/20 12:22 Humalog SUB-Q 2 unit ACHS LEONARD Administration Protocol Magnesium Hydroxide 30 ml 01/12/20 05:22 Milk Of Magnesia PO Q4H PRN Constipation Morphine Sulfate 2 mg 01/12/20 05:22 01/20/20 21:40 Morphine IV 2 mg Q4H PRN Administration Pain, Moderate (4-6) Ondansetron HCl 4 mg 01/12/20 05:22 Zofran IV Q8H PRN Nausea And Vomiting Sodium Chloride 10 ml 01/12/20 10:00 01/22/20 09:47 Sodium Chloride Flush Syringe 10 Ml IV 10 ml BID LEONARD Administration Sodium Chloride 10 ml 01/12/20 05:22 Sodium Chloride Flush Syringe 10 Ml IV PRN PRN LINE FLUSH Sodium Chloride 50 ml 01/20/20 18:00 01/21/20 23:15 Nacl 0.9% IV 01/24/20 21:31 50 ml Q24HR@2130 LEONARD Administration Nutrition/Malnutrition Assess - Dietary Evaluation Nutrition/Malnutrition Findings: Nutrition Notes Start: 01/12/20 10:30 Freq: Status: Active Protocol: Document 01/20/20 13:05 AB (Rec: 01/20/20 13:10 AB [id number]) Co-Sign 01/20/20 13:05 MK Nutrition Notes Initial or Follow up Reassessment Current Diagnosis Acute Kidney Injury,Diabetes, Hypertension Other Pertinent Diagnosis CA, AMS Current Diet Cardiac/Consistent CHO Labs/Tests Reviewed Pertinent Medications Reviewed Height 5 ft 6 in Weight 114.3 kg [place] Body Weight (kg) 59.09 BMI 40.6 Weight Status Morbidly Obese Subjective/Other Information Pt awake and responsive. ONS sitting next to bed unopened, per nurse. Nurse reports that pt has not had an appetite d/t COVID symptoms. Percent of energy/protein needs met: 0%/0% Burn Absent Trauma Absent GI Symptoms None Current % PO Negligible Minimum of two criteria No Energy Intake (severe) < or equal to 50% Estimated Energy Requirement > or equal to 5 days #1 Nutrition Diagnosis Inadequate oral intake Diagnosis Progress(for reassessment Continues documentation) Is patient on ventilator? No Is Patient Ambulatory and/or Out of Bed No REE-([facility]-confined to bed) [phone] Kcal/Kg value to use for calculation 12 Approximate Energy Requirements Using 1372 kcal/Kg Calculation Used for Recommendations Kcal/kg Additional Notes Protein needs are 87-104g (1-1.2g/kg Adj wt 86.5kg) Fluid needs are 1ml/kcal Nutrition Intervention Change Diet Order: Continue Add Supplement/Snack (indicate name/kcal Glucerna daily /protein ) Provides kCal: 220 Provides Protein (gm) 10 Goal #1 Meet at least 80% of energy and protein needs via PO and ONS when tolerated. Anticipated Discharge Needs: Cardiac/Consistent carb with ONS as needed Follow-Up By: 01/24/20 Additional Comments F/U for intakes and ONS tolerance/need
[2020-01-22 16:25] LABS: Basophils % (Auto) 0.3 % (0.0-1.8); Hematocrit 28.9 % (30.3-42.9); Hemoglobin 9.5 gm/dl (10.1-14.3); Lymphocytes # (Auto) 0.4 K/mm3 (1.2-5.4); Lymphocytes % (Auto) 11.3 % (13.4-35.0); Mean Corpuscular HGB Conc 33 % (30-34); Mean Corpuscular Volume 94 fl (79-97); Monocytes # (Auto) 0.5 K/mm3 (0.0-0.8); Monocytes % (Auto) 13.3 % (0.0-7.3); Platelet Count 355 K/mm3 (140-440); Red Blood Count 3.08 M/mm3 (3.65-5.03); Red Cell Distribution Width 14.2 % (13.2-15.2)
[2020-01-22] MEDS: REMDESIVIR 100 MG in SODIUM CHLORIDE 0.9% 250ML 250 ML IV SCH (22:06)
[2020-01-22] MEDS: SODIUM CHLORIDE 0.9% 50 ML IVPB IV SCH (22:07)
[2020-01-22] MEDS: ENOXAPARIN 40 MG/0.4 ML INJ SUB-Q SCH (22:07)
[2020-01-23] MEDS: INSULIN LISPRO 100 UNIT/ML VIAL 3 mL SUB-Q SCH ×4 (09:52→23:55)
[2020-01-23] MEDS: dexAMETHasone 4 MG/ML VIAL IV SCH (09:52)
--- NOTE | 2020-01-23 15:16 | Progress Note ---
Assessment and Plan Cultures: COVID-19 positive A/P: 80-year-old female past medical history hypertension, diabetes, GERD, depression admitted with altered mental status, incidentally found to be Covid positive. #COVID-19: Incidentally found to placement facility. Patient became hypoxic. Now on room air. #Leukopenia: Possibly secondary to COVID-19. Procalcitonin normal #Diabetes: tight glycemic control for best outcomes. #Status post colostomy. Recs: -Continue dexamethasone 6 mg/kg daily for 10 days -Continue remdesivir for 5 days -Offloading sacral decubitus, small noninfected will follow Fernanda Nichols MD [facility] ([facility]) Office [phone] Subjective Date of service: 01/23/20 Principal diagnosis: COVID Interval history: Patient remains on room air, no fever for 3 days Objective - Exam Narrative Exam: Physical Exam: reviewed ED and hospitalist notes, limited due to conservation of PPE and decrease risk of transmission. General appearance: limited due to conservation of PPE Eyes: limited due to conservation of PPE HENT: Atraumatic; limited due to conservation of PPE Lungs: limited due to conservation of PPE CV: limited due to conservation of PPE Abdomen: limited due to conservation of PPE Extremities: limited due to conservation of PPE Skin: limited due to conservation of PPE Psych: limited due to conservation of PPE Neuro: limited due to conservation of PPE - Constitutional Vitals: Vital Signs Temp Pulse Resp BP Pulse Ox 98.4 F 64 20 160/64 95 01/23/20 04:46 01/23/20 04:46 01/23/20 04:46 01/23/20 04:46 01/23/20 14:15 Temperature -Last 24 Hours Temperature 98.4 F Temperature 97.7 F - Labs CBC & Chem 7: 01/22/20 15:39 01/21/20 05:21 Labs: Abnormal lab results 01/22/20 01/22/20 01/22/20 Range/Units 15:39 16:09 21:05 WBC 3.8 L (4.5-11.0) K/mm3 RBC 3.08 L (3.65-5.03) M/mm3 Hgb 9.5 L (10.1-14.3) gm/dl Hct 28.9 L (30.3-42.9) % Lymph % (Auto) 11.3 L (13.4-35.0) % [place] % (Auto) 13.3 H (0.0-7.3) % Lymph # (Auto) 0.4 L (1.2-5.4) K/mm3 Seg Neutrophils % 75.1 H (40.0-70.0) % POC Glucose 162 H 189 H (70-105) mg/dL 01/23/20 01/23/20 Range/Units 07:54 11:51 WBC (4.5-11.0) K/mm3 RBC (3.65-5.03) M/mm3 Hgb (10.1-14.3) gm/dl Hct (30.3-42.9) % Lymph % (Auto) (13.4-35.0) % [place] % (Auto) (0.0-7.3) % Lymph # (Auto) (1.2-5.4) K/mm3 Seg Neutrophils % (40.0-70.0) % POC Glucose 160 H 140 H (70-105) mg/dL
--- NOTE | 2020-01-23 16:05 | Progress Note ---
Assessment and Plan Assessment and plan: --Neutropenia; improved[1.8-3.8] Current Visit: Yes Status: Acute. Plan to address problem: Secondary to underlying sepsis And severe Covid 19 infection Continue steroid remdesivir Closely monitor --Severe thrombocytopenia; Current Visit: Yes Status: Acute. Plan to address problem: Improved [phone] Closely monitor, continue current management --Severe COVID-19 infection Current Visit: Yes Status: Acute. Plan to address problem: Contact isolation, droplet precautions Oxygen titrate O2 sats to more than 90% Steroids for total 10 days per protocol remdesivir, oxygen titrate O2 sats to more than 90% High inflammatory markers, Home oxygen evaluation Patient is critically ill, with poor prognosis ID following -- Acute toxic metabolic encephalopathy POA Current Visit: Yes Status: Acute Plan to address problem: Underlying disease process , electrolyte abnormalities Severe neutropenia and thrombocytopenia CT head is normal, Neuro evaluation noted and appreciated PT evaluation, for placement when stable --Type II diabetes mellitus Current Visit: Yes Status: Acute Plan to address problem: We will monitor Accu-Cheks. Sliding scale coverage ADA diet and insulin as needed --Hypertension Current Visit: Yes Status: Acute Plan to address problem: We will resume routine home medications on the monitor vital signs closely. --Acute renal failure present on admission; Current Visit: Yes Status: Acute Plan to address problem: Vasomotor nephropathy resolved --DVT prophylaxis Current Visit: Yes Status: Acute Plan to address problem: Patient on Lovenox --Moderate malnutrition Current Visit: Yes Status: Acute Plan to address problem: hypoalbuminemia, albumin 3.0 Nutrition supplements Nutrition consult if needed --Full code status Current Visit: Yes Status: Acute Patient is critically ill with poor prognosis Severe COVID-19 infection. Plan of care reviewed with the patient and her nurse 01/14/2020 -MARISOL resolved, hyperkalemia resolved. Altered mental status resolved. Patient is weak and states she is feeling sick, evaluated by physical therapy and recommend subacute rehab. We will put case management consult. 01/15/2020 -MARISOL resolved, hyperkalemia resolved. Patient was alert and oriented. PT evaluated and recommended subacute rehab. 01/16/20; electrolytes within normal limits, patient feels better, awaiting placement 01/17/2020; clinically stable for discharge, pending placement 01/18/2020; Covid test sent for placement, stable for discharge, case management processing placement 01/19/2020; COVID-19 test positive, patient also has some low-grade fever, contact and droplet isolation ID consult, transfer to third floor Covid wing 01/20/2020; patient is placed on IV steroids, remdesivir follow markers, ID evaluation noted and appreciated Patient is critically ill with poor prognosis 01/21/2020; neutropenia, secondary to underlying severe sepsis Closely monitor, consider Neupogen and neutropenia isolation if neutrophils drop further We will also consider hematology evaluation if needed Patient is critically ill with very poor prognosis 01/23/2020; neutropenia and thrombocytopenia improved, closely monitor Patient receiving steroids and remdesivir, follow ID recommendations Brief history: 80-year-old female past medical history hypertension, diabetes, GERD, depression brought to the hospital for altered mental status. As noted the patient was in a m[facility], and was not acting in her usual manner. No other acute complaints were noted at the time. She was admitted for MARISOL and mental changes. Patient was being worked up for placement and Covid test was done which was positive, placed in isolation, ID evaluated, currently receiving steroids and remdesivir. Mild improvement. Patient is critically ill with poor prognosis History Interval history: I have seen and examined the patient at the bedside today I have personally followed strict isolation precautions and PPE protocols Vital signs noted Patient feels slightly better No new complaints today Hospitalist Physical - Constitutional Vitals: Temp Pulse Resp BP Pulse Ox 98.4 F 64 20 160/64 95 01/23/20 04:46 01/23/20 04:46 01/23/20 04:46 01/23/20 04:46 01/23/20 14:15 General appearance: Present: no acute distress, well-nourished, obese (Morbidly obese) - EENT Eyes: Present: PERRL, EOM intact - Neck Neck: Present: supple, normal ROM - Respiratory Respiratory effort: normal Respiratory: bilateral: diminished, rhonchi, negative: rales, wheezing - Cardiovascular Rhythm: regular Heart Sounds: Present: S1 & S2 - Extremities Extremities: no ischemia Extremity abnormal: edema - Abdominal General gastrointestinal: soft, non-tender, non-distended, normal bowel sounds - Integumentary Integumentary: Present: clear, warm - Psychiatric Psychiatric: appropriate mood/affect, cooperative - Neurologic Neurologic: other (Residual weakness) HEART Score - HEART Score Troponin: Troponin T < 0.010 ng/mL (0.00-0.029) 01/12/20 05:30 Results - Labs CBC & Chem 7: 01/22/20 15:39 01/21/20 05:21 Labs: Laboratory Last Values WBC 3.8 K/mm3 (4.5-11.0) L 01/22/20 15:39 RBC 3.08 M/mm3 (3.65-5.03) L 01/22/20 15:39 Hgb 9.5 gm/dl (10.1-14.3) L 01/22/20 15:39 Hct 28.9 % (30.3-42.9) L 01/22/20 15:39 MCV 94 fl (79-97) 01/22/20 15:39 MCH 31 pg (28-32) 01/22/20 15:39 MCHC 33 % (30-34) 01/22/20 15:39 RDW 14.2 % (13.2-15.2) 01/22/20 15:39 Plt Count 355 K/mm3 (140-440) 01/22/20 15:39 Lymph % (Auto) 11.3 % (13.4-35.0) L 01/22/20 15:39 [place] % (Auto) 13.3 % (0.0-7.3) H 01/22/20 15:39 Eos % (Auto) 0.0 % (0.0-4.3) 01/22/20 15:39 Baso % (Auto) 0.3 % (0.0-1.8) 01/22/20 15:39 Lymph # (Auto) 0.4 K/mm3 (1.2-5.4) L 01/22/20 15:39 [place] # (Auto) 0.5 K/mm3 (0.0-0.8) 01/22/20 15:39 Eos # (Auto) 0.0 K/mm3 (0.0-0.4) 01/22/20 15:39 Baso # (Auto) 0.0 K/mm3 (0.0-0.1) 01/22/20 15:39 Add Manual Diff Complete 01/21/20 05:21 Total Counted 50 01/21/20 05:21 Seg Neutrophils % 75.1 % (40.0-70.0) H 01/22/20 15:39 Seg Neuts % (Manual) 86.0 % (40.0-70.0) H 01/21/20 05:21 Band Neutrophils % 4.0 % 01/21/20 05:21 Lymphocytes % (Manual) 4.0 % (13.4-35.0) L 01/21/20 05:21 Reactive Lymphs % (Man) 0 % 01/21/20 05:21 Monocytes % (Manual) 4.0 % (0.0-7.3) 01/21/20 05:21 Eosinophils % (Manual) 2.0 % (0.0-4.3) 01/21/20 05:21 Basophils % (Manual) 0 % (0.0-1.8) 01/21/20 05:21 Metamyelocytes % 0 % 01/21/20 05:21 Myelocytes % 0 % 01/21/20 05:21 Promyelocytes % 0 % 01/21/20 05:21 Blast Cells % 0 % 01/21/20 05:21 Nucleated RBC % Not Reportable 01/21/20 05:21 Seg Neutrophils # 2.9 K/mm3 (1.8-7.7) 01/22/20 15:39 Seg Neutrophils # Man 1.5 K/mm3 (1.8-7.7) L 01/21/20 05:21 Band Neutrophils # 0.1 K/mm3 01/21/20 05:21 Lymphocytes # (Manual) 0.1 K/mm3 (1.2-5.4) L 01/21/20 05:21 Abs React Lymphs (Man) 0.0 K/mm3 01/21/20 05:21 Monocytes # (Manual) 0.1 K/mm3 (0.0-0.8) 01/21/20 05:21 Eosinophils # (Manual) 0.0 K/mm3 (0.0-0.4) 01/21/20 05:21 Basophils # (Manual) 0.0 K/mm3 (0.0-0.1) 01/21/20 05:21 Metamyelocytes # 0.0 K/mm3 01/21/20 05:21 Myelocytes # 0.0 K/mm3 01/21/20 05:21 Promyelocytes # 0.0 K/mm3 01/21/20 05:21 Blast Cells # 0.0 K/mm3 01/21/20 05:21 WBC Morphology Not Reportable 01/21/20 05:21 Hypersegmented Neuts Not Reportable 01/21/20 05:21 Hyposegmented Neuts Not Reportable 01/21/20 05:21 Hypogranular Neuts Not Reportable 01/21/20 05:21 Smudge Cells Not Reportable 01/21/20 05:21 Toxic Granulation Not Reportable 01/21/20 05:21 Toxic Vacuolation Not Reportable 01/21/20 05:21 Dohle Bodies Not Reportable 01/21/20 05:21 Pelger-Huet Anomaly Not Reportable 01/21/20 05:21 Stephen Rods Not Reportable 01/21/20 05:21 Platelet Estimate Consistent w auto 01/21/20 05:21 Clumped Platelets Not Reportable 01/21/20 05:21 Plt Clumps, EDTA Not Reportable 01/21/20 05:21 Large Platelets Not Reportable 01/21/20 05:21 Giant Platelets Not Reportable 01/21/20 05:21 Platelet Satelliting Not Reportable 01/21/20 05:21 Plt Morphology Comment Not Reportable 01/21/20 05:21 RBC Morphology Not Reportable 01/21/20 05:21 Dimorphic RBCs Not Reportable 01/21/20 05:21 Polychromasia Not Reportable 01/21/20 05:21 Hypochromasia Not Reportable 01/21/20 05:21 Poikilocytosis Not Reportable 01/21/20 05:21 Anisocytosis 1+ 01/21/20 05:21 Microcytosis Not Reportable 01/21/20 05:21 Macrocytosis Not Reportable 01/21/20 05:21 Spherocytes Not Reportable 01/21/20 05:21 Pappenheimer Bodies Not Reportable 01/21/20 05:21 Sickle Cells Not Reportable 01/21/20 05:21 Target Cells Not Reportable 01/21/20 05:21 Tear Drop Cells Not Reportable 01/21/20 05:21 Ovalocytes Not Reportable 01/21/20 05:21 Helmet Cells Not Reportable 01/21/20 05:21 [place] Bodies Not Reportable 01/21/20 05:21 [place] Rings Not Reportable 01/21/20 05:21 [place] Cells Not Reportable 01/21/20 05:21 Bite Cells Not Reportable 01/21/20 05:21 Crenated Cell Not Reportable 01/21/20 05:21 Elliptocytes Not Reportable 01/21/20 05:21 Acanthocytes (Spur) Not Reportable 01/21/20 05:21 Rouleaux Not Reportable 01/21/20 05:21 Hemoglobin C Crystals Not Reportable 01/21/20 05:21 Schistocytes Not Reportable 01/21/20 05:21 Malaria parasites Not Reportable 01/21/20 05:21 Chaitanya Bodies Not Reportable 01/21/20 05:21 Hem Pathologist Commnt No 01/21/20 05:21 D-Dimer 1552.39 ng/mlDDU (0-234) H 01/19/20 23:00 Sodium 142 mmol/L (137-145) 01/21/20 05:21 Potassium 5.1 mmol/L (3.6-5.0) H 01/21/20 05:21 Chloride 104.9 mmol/L (98-107) 01/21/20 05:21 Carbon Dioxide 23 mmol/L (22-30) 01/21/20 05:21 Anion Gap 19 mmol/L 01/21/20 05:21 BUN 21 mg/dL (7-17) H 01/21/20 05:21 Creatinine 0.9 mg/dL (0.6-1.2) 01/21/20 05:21 Estimated GFR > 60 ml/min 01/21/20 05:21 BUN/Creatinine Ratio 23 % 01/21/20 05:21 Glucose 198 mg/dL (65-100) H 01/21/20 05:21 POC Glucose 140 mg/dL (70-105) H 01/23/20 11:51 Lactic Acid 1.10 mmol/L (0.7-2.0) 01/12/20 03:07 Calcium 8.4 mg/dL (8.4-10.2) 01/21/20 05:21 Ferritin > 2000.0 ng/mL (10.0-200.0) H 01/19/20 23:00 Total Bilirubin 0.20 mg/dL (0.1-1.2) 01/21/20 05:21 AST 45 units/L (5-40) H 01/21/20 05:21 ALT 37 units/L (7-56) 01/21/20 05:21 Alkaline Phosphatase 33 units/L (35-129) L 01/21/20 05:21 Ammonia 11.0 umol/L (25-60) L 01/12/20 03:07 Lactate Dehydrogenase 413 units/L (91-180) H 01/19/20 23:00 Total Creatine Kinase 74 units/L (30-135) 01/12/20 03:07 Troponin T < 0.010 ng/mL (0.00-0.029) 01/12/20 05:30 C-Reactive Protein 16.90 mg/dL (0.00-1.30) H 01/19/20 23:00 Total Protein 6.5 g/dL (6.3-8.2) 01/21/20 05:21 Albumin 3.0 g/dL (3.9-5) L 01/21/20 05:21 Albumin/Globulin Ratio 0.9 % 01/21/20 05:21 Procalcitonin < 0.05 ng/mL (<0.15) 01/20/20 16:54 Urine Color Jaycee (Yellow) 01/12/20 Unknown Urine Turbidity Clear (Clear) 01/12/20 Unknown Urine pH 5.0 (5.0-7.0) 01/12/20 Unknown Ur Specific [place] 1.020 (1.003-1.030) 01/12/20 Unknown Urine Protein 30 mg/dl mg/dL (Negative) 01/12/20 Unknown Urine Glucose (UA) Neg mg/dL (Negative) 01/12/20 Unknown Urine Ketones Neg mg/dL (Negative) 01/12/20 Unknown Urine Blood Neg (Negative) 01/12/20 Unknown Urine Nitrite Neg (Negative) 01/12/20 Unknown Urine Bilirubin Neg (Negative) 01/12/20 Unknown Urine Urobilinogen < 2.0 mg/dL (<2.0) 01/12/20 Unknown Ur Leukocyte Esterase Neg (Negative) 01/12/20 Unknown Urine WBC (Auto) 4.0 /HPF (0.0-6.0) 01/12/20 Unknown Urine RBC (Auto) 4.0 /HPF (0.0-6.0) 01/12/20 Unknown Urine Bacteria (Auto) 1+ /HPF (Negative) 01/12/20 Unknown Urine Mucus Few /HPF 01/12/20 Unknown Urine Creatinine 125.0 mg/dL (0.1-20.0) H 01/12/20 13:01 Urine Sodium 127 mmol/L 01/12/20 13:01 Urine Total Protein 31 mg/dL (5-11.8) H 01/12/20 13:01 Salicylates < 0.3 mg/dL (2.8-20.0) L 01/12/20 03:07 Urine Opiates Screen Presumptive negative 01/12/20 Unknown Urine Methadone Screen Presumptive negative 01/12/20 Unknown Acetaminophen 5.0 ug/mL (10.0-30.0) L 01/12/20 03:07 Ur Barbiturates Screen Presumptive negative 01/12/20 Unknown Ur Phencyclidine Scrn Presumptive negative 01/12/20 Unknown Ur Amphetamines Screen Presumptive negative 01/12/20 Unknown U Benzodiazepines Scrn Presumptive negative 01/12/20 Unknown Urine Cocaine Screen Presumptive negative 01/12/20 Unknown U Marijuana (THC) Screen Presumptive negative 01/12/20 Unknown Drugs of Abuse Note Disclamer 01/12/20 Unknown Plasma/Serum Alcohol < 0.01 % (0-0.07) 01/12/20 03:07 Coronavirus (PCR) Positive (Negative) A 01/19/20 Unknown Khan/IV: Voiding Method External Female Catheter IV Catheter Type [Right INT / Saline Lock Forearm] IV Catheter Type [Left Forearm INT / Saline Lock ] IV Catheter Type [Right Upper INT / Saline Lock arm] IV Catheter Type [Left Wrist] INT / Saline Lock IV Catheter Type [Right Distal INT / Saline Lock Port Antecubital] Active Medications - Current Medications Current Medications: Generic Name Dose Route Start Last Admin Trade Name Freq PRN Reason Stop Dose Admin Acetaminophen 650 mg 01/12/20 05:22 01/19/20 05:03 Tylenol PO 650 mg Q4H PRN Administration Pain MILD(1-3)/Fever >100.5/BOO Dexamethasone 6 mg 01/24/20 10:00 Decadron PO 01/29/20 10:01 DAILY LEONARD Dextrose 50 ml 01/12/20 05:22 D50w (25gm) Syringe IV Q30MIN PRN Hypoglycemia Protocol Enoxaparin Sodium 40 mg 01/20/20 22:00 01/22/20 22:07 Enoxaparin SUB-Q 40 mg QDAY@2200 [facility] Administration Protocol REMDESIVIR 100 mg/ Sodium 250 mls @ 500 mls/hr 01/21/20 21:00 01/22/20 22:06 Chloride IV 01/24/20 21:29 500 mls/hr Q24HR@2100 [facility] Administration Insulin Human Lispro 0 unit 01/12/20 07:30 01/23/20 09:52 Humalog SUB-Q 2 unit ACHS [facility] Administration Protocol Magnesium Hydroxide 30 ml 01/12/20 05:22 Milk Of Magnesia PO Q4H PRN Constipation Morphine Sulfate 2 mg 01/12/20 05:22 01/20/20 21:40 Morphine IV 2 mg Q4H PRN Administration Pain, Moderate (4-6) Ondansetron HCl 4 mg 01/12/20 05:22 Zofran IV Q8H PRN Nausea And Vomiting Sodium Chloride 10 ml 01/12/20 10:00 01/23/20 09:53 Sodium Chloride Flush Syringe 10 Ml IV 10 ml BID LEONARD Administration Sodium Chloride 10 ml 01/12/20 05:22 Sodium Chloride Flush Syringe 10 Ml IV PRN PRN LINE FLUSH Sodium Chloride 50 ml 01/20/20 18:00 01/22/20 22:07 Nacl 0.9% IV 01/24/20 21:31 50 ml Q24HR@2130 [facility] Administration Nutrition/Malnutrition Assess - Dietary Evaluation Nutrition/Malnutrition Findings: Nutrition Notes Start: 01/12/20 10:30 Freq: Status: Active Protocol: Document 01/20/20 13:05 AB (Rec: 01/20/20 13:10 AB [id number]) Co-Sign 01/20/20 13:05 Nutrition Notes Initial or Follow up Reassessment Current Diagnosis Acute Kidney Injury,Diabetes, Hypertension Other Pertinent Diagnosis CA, AMS Current Diet Cardiac/Consistent CHO Labs/Tests Reviewed Pertinent Medications Reviewed Height 5 ft 6 in Weight 114.3 kg [place] Body Weight (kg) 59.09 BMI 40.6 Weight Status Morbidly Obese Subjective/Other Information Pt awake and responsive. ONS sitting next to bed unopened, per nurse. Nurse reports that pt has not had an appetite d/t COVID symptoms. Percent of energy/protein needs met: 0%/0% Burn Absent Trauma Absent GI Symptoms None Current % PO Negligible Minimum of two criteria No Energy Intake (severe) < or equal to 50% Estimated Energy Requirement > or equal to 5 days #1 Nutrition Diagnosis Inadequate oral intake Diagnosis Progress(for reassessment Continues documentation) Is patient on ventilator? No Is Patient Ambulatory and/or Out of Bed No REE-(Raymond-St. Jeor-confined to bed) [phone] Kcal/Kg value to use for calculation 12 Approximate Energy Requirements Using 1372 kcal/Kg Calculation Used for Recommendations Kcal/kg Additional Notes Protein needs are 87-104g (1-1.2g/kg Adj wt 86.5kg) Fluid needs are 1ml/kcal Nutrition Intervention Change Diet Order: Continue Add Supplement/Snack (indicate name/kcal Glucerna daily /protein ) Provides kCal: 220 Provides Protein (gm) 10 Goal #1 Meet at least 80% of energy and protein needs via PO and ONS when tolerated. Anticipated Discharge Needs: Cardiac/Consistent carb with ONS as needed Follow-Up By: 01/24/20 Additional Comments F/U for intakes and ONS tolerance/need
[2020-01-23] MEDS: ENOXAPARIN 40 MG/0.4 ML INJ SUB-Q SCH (22:43)
[2020-01-23] MEDS: SODIUM CHLORIDE 0.9% 50 ML IVPB IV SCH (22:44)
[2020-01-23] MEDS: REMDESIVIR 100 MG in SODIUM CHLORIDE 0.9% 250ML 250 ML IV SCH (22:44)
--- NOTE | 2020-01-24 09:08 | Progress Note ---
Assessment and Plan Assessment and plan: --Neutropenia; improved[1.8-3.8] Current Visit: Yes Status: Acute. Plan to address problem: Secondary to underlying sepsis And severe Covid 19 infection Continue steroid remdesivir Closely monitor --Severe thrombocytopenia; Current Visit: Yes Status: Acute. Plan to address problem: Improved [phone] Closely monitor, continue current management --Severe COVID-19 infection Current Visit: Yes Status: Acute. Plan to address problem: Contact isolation, droplet precautions Oxygen titrate O2 sats to more than 90% Steroids for total 10 days per protocol remdesivir, oxygen titrate O2 sats to more than 90% High inflammatory markers, Home oxygen evaluation Patient is critically ill, with poor prognosis ID following -- Acute toxic metabolic encephalopathy POA Current Visit: Yes Status: Acute Plan to address problem: Underlying disease process , electrolyte abnormalities Severe neutropenia and thrombocytopenia CT head is normal, Neuro evaluation noted and appreciated PT evaluation, for placement when stable --Type II diabetes mellitus Current Visit: Yes Status: Acute Plan to address problem: We will monitor Accu-Cheks. Sliding scale coverage ADA diet and insulin as needed --Hypertension Current Visit: Yes Status: Acute Plan to address problem: We will resume routine home medications on the monitor vital signs closely. --Acute renal failure present on admission; Current Visit: Yes Status: Acute Plan to address problem: Vasomotor nephropathy resolved --DVT prophylaxis Current Visit: Yes Status: Acute Plan to address problem: Patient on Lovenox --Moderate malnutrition Current Visit: Yes Status: Acute Plan to address problem: hypoalbuminemia, albumin 3.0 Nutrition supplements Nutrition consult if needed --Full code status Current Visit: Yes Status: Acute Patient is critically ill with poor prognosis Severe COVID-19 infection. Plan of care reviewed with the patient and her nurse 01/14/2020 -MARISOL resolved, hyperkalemia resolved. Altered mental status resolved. Patient is weak and states she is feeling sick, evaluated by physical therapy and recommend subacute rehab. We will put case management consult. 01/15/2020 -MARISOL resolved, hyperkalemia resolved. Patient was alert and oriented. PT evaluated and recommended subacute rehab. 01/16/20; electrolytes within normal limits, patient feels better, awaiting placement 01/17/2020; clinically stable for discharge, pending placement 01/18/2020; Covid test sent for placement, stable for discharge, case management processing placement 01/19/2020; COVID-19 test positive, patient also has some low-grade fever, contact and droplet isolation ID consult, transfer to third floor Covid wing 01/20/2020; patient is placed on IV steroids, remdesivir follow markers, ID evaluation noted and appreciated Patient is critically ill with poor prognosis 01/21/2020; neutropenia, secondary to underlying severe sepsis Closely monitor, consider Neupogen and neutropenia isolation if neutrophils drop further We will also consider hematology evaluation if needed Patient is critically ill with very poor prognosis 01/23/2020; neutropenia and thrombocytopenia improved, closely monitor Patient receiving steroids and remdesivir, follow ID recommendations 01/24/2020. Patient to complete remdesivir today. Continue steroids per ID recommendations. Patient currently without oxygen and satting 95% on room air. Discussed with case management possibility of discharge to Covid unit at a nursing facility. History Interval history: 80-year-old female past medical history hypertension, diabetes, GERD, depression brought to the hospital for altered mental status. As noted the patient was in a assisted, and was not acting in her usual manner. No other acute complaints were noted at the time. She was admitted for MARISOL and mental changes. Discharge planning was occurring, and an order for placement to occur a Covid test was required, which returned positive. Hospitalist Physical - Constitutional Vitals: Temp Pulse Resp BP Pulse Ox 97.6 F 81 20 162/73 95 01/24/20 04:44 01/23/20 22:15 01/24/20 04:44 01/24/20 04:44 01/23/20 22:15 General appearance: Present: no acute distress, well-nourished, obese (Morbidly obese) - EENT Eyes: Present: PERRL, EOM intact ENT: hearing intact, clear oral mucosa, dentition normal - Neck Neck: Present: supple, normal ROM - Respiratory Respiratory effort: normal Respiratory: bilateral: CTA - Cardiovascular Rhythm: regular Heart Sounds: Present: S1 & S2. Absent: gallop, rub - Extremities Extremities: no ischemia, No edema, Full ROM - Abdominal General gastrointestinal: soft, non-tender, non-distended, normal bowel sounds - Integumentary Integumentary: Present: clear, warm, dry - Neurologic Neurologic: CNII-XII intact, moves all extremities HEART Score - HEART Score Troponin: Troponin T < 0.010 ng/mL (0.00-0.029) 01/12/20 05:30 Results - Labs CBC & Chem 7: 01/22/20 15:39 01/21/20 05:21 Labs: Laboratory Last Values WBC 3.8 K/mm3 (4.5-11.0) L 01/22/20 15:39 RBC 3.08 M/mm3 (3.65-5.03) L 01/22/20 15:39 Hgb 9.5 gm/dl (10.1-14.3) L 01/22/20 15:39 Hct 28.9 % (30.3-42.9) L 01/22/20 15:39 MCV 94 fl (79-97) 01/22/20 15:39 MCH 31 pg (28-32) 01/22/20 15:39 MCHC 33 % (30-34) 01/22/20 15:39 RDW 14.2 % (13.2-15.2) 01/22/20 15:39 Plt Count 355 K/mm3 (140-440) 01/22/20 15:39 Lymph % (Auto) 11.3 % (13.4-35.0) L 01/22/20 15:39 [place] % (Auto) 13.3 % (0.0-7.3) H 01/22/20 15:39 Eos % (Auto) 0.0 % (0.0-4.3) 01/22/20 15:39 Baso % (Auto) 0.3 % (0.0-1.8) 01/22/20 15:39 Lymph # (Auto) 0.4 K/mm3 (1.2-5.4) L 01/22/20 15:39 [place] # (Auto) 0.5 K/mm3 (0.0-0.8) 01/22/20 15:39 Eos # (Auto) 0.0 K/mm3 (0.0-0.4) 01/22/20 15:39 Baso # (Auto) 0.0 K/mm3 (0.0-0.1) 01/22/20 15:39 Add Manual Diff Complete 01/21/20 05:21 Total Counted 50 01/21/20 05:21 Seg Neutrophils % 75.1 % (40.0-70.0) H 01/22/20 15:39 Seg Neuts % (Manual) 86.0 % (40.0-70.0) H 01/21/20 05:21 Band Neutrophils % 4.0 % 01/21/20 05:21 Lymphocytes % (Manual) 4.0 % (13.4-35.0) L 01/21/20 05:21 Reactive Lymphs % (Man) 0 % 01/21/20 05:21 Monocytes % (Manual) 4.0 % (0.0-7.3) 01/21/20 05:21 Eosinophils % (Manual) 2.0 % (0.0-4.3) 01/21/20 05:21 Basophils % (Manual) 0 % (0.0-1.8) 01/21/20 05:21 Metamyelocytes % 0 % 01/21/20 05:21 Myelocytes % 0 % 01/21/20 05:21 Promyelocytes % 0 % 01/21/20 05:21 Blast Cells % 0 % 01/21/20 05:21 Nucleated RBC % Not Reportable 01/21/20 05:21 Seg Neutrophils # 2.9 K/mm3 (1.8-7.7) 01/22/20 15:39 Seg Neutrophils # Man 1.5 K/mm3 (1.8-7.7) L 01/21/20 05:21 Band Neutrophils # 0.1 K/mm3 01/21/20 05:21 Lymphocytes # (Manual) 0.1 K/mm3 (1.2-5.4) L 01/21/20 05:21 Abs React Lymphs (Man) 0.0 K/mm3 01/21/20 05:21 Monocytes # (Manual) 0.1 K/mm3 (0.0-0.8) 01/21/20 05:21 Eosinophils # (Manual) 0.0 K/mm3 (0.0-0.4) 01/21/20 05:21 Basophils # (Manual) 0.0 K/mm3 (0.0-0.1) 01/21/20 05:21 Metamyelocytes # 0.0 K/mm3 01/21/20 05:21 Myelocytes # 0.0 K/mm3 01/21/20 05:21 Promyelocytes # 0.0 K/mm3 01/21/20 05:21 Blast Cells # 0.0 K/mm3 01/21/20 05:21 WBC Morphology Not Reportable 01/21/20 05:21 Hypersegmented Neuts Not Reportable 01/21/20 05:21 Hyposegmented Neuts Not Reportable 01/21/20 05:21 Hypogranular Neuts Not Reportable 01/21/20 05:21 Smudge Cells Not Reportable 01/21/20 05:21 Toxic Granulation Not Reportable 01/21/20 05:21 Toxic Vacuolation Not Reportable 01/21/20 05:21 Dohle Bodies Not Reportable 01/21/20 05:21 Pelger-Huet Anomaly Not Reportable 01/21/20 05:21 Stephen Rods Not Reportable 01/21/20 05:21 Platelet Estimate Consistent w auto 01/21/20 05:21 Clumped Platelets Not Reportable 01/21/20 05:21 Plt Clumps, EDTA Not Reportable 01/21/20 05:21 Large Platelets Not Reportable 01/21/20 05:21 Giant Platelets Not Reportable 01/21/20 05:21 Platelet Satelliting Not Reportable 01/21/20 05:21 Plt Morphology Comment Not Reportable 01/21/20 05:21 RBC Morphology Not Reportable 01/21/20 05:21 Dimorphic RBCs Not Reportable 01/21/20 05:21 Polychromasia Not Reportable 01/21/20 05:21 Hypochromasia Not Reportable 01/21/20 05:21 Poikilocytosis Not Reportable 01/21/20 05:21 Anisocytosis 1+ 01/21/20 05:21 Microcytosis Not Reportable 01/21/20 05:21 Macrocytosis Not Reportable 01/21/20 05:21 Spherocytes Not Reportable 01/21/20 05:21 Pappenheimer Bodies Not Reportable 01/21/20 05:21 Sickle Cells Not Reportable 01/21/20 05:21 Target Cells Not Reportable 01/21/20 05:21 Tear Drop Cells Not Reportable 01/21/20 05:21 Ovalocytes Not Reportable 01/21/20 05:21 Helmet Cells Not Reportable 01/21/20 05:21 Rowe-Fyffe Bodies Not Reportable 01/21/20 05:21 [place]wood Rings Not Reportable 01/21/20 05:21 Stanton Cells Not Reportable 01/21/20 05:21 Bite Cells Not Reportable 01/21/20 05:21 Crenated Cell Not Reportable 01/21/20 05:21 Elliptocytes Not Reportable 01/21/20 05:21 Acanthocytes (Spur) Not Reportable 01/21/20 05:21 Rouleaux Not Reportable 01/21/20 05:21 Hemoglobin C Crystals Not Reportable 01/21/20 05:21 Schistocytes Not Reportable 01/21/20 05:21 Malaria parasites Not Reportable 01/21/20 05:21 Chaitanya Bodies Not Reportable 01/21/20 05:21 Hem Pathologist Commnt No 01/21/20 05:21 D-Dimer 1552.39 ng/mlDDU (0-234) H 01/19/20 23:00 Sodium 142 mmol/L (137-145) 01/21/20 05:21 Potassium 5.1 mmol/L (3.6-5.0) H 01/21/20 05:21 Chloride 104.9 mmol/L (98-107) 01/21/20 05:21 Carbon Dioxide 23 mmol/L (22-30) 01/21/20 05:21 Anion Gap 19 mmol/L 01/21/20 05:21 BUN 21 mg/dL (7-17) H 01/21/20 05:21 Creatinine 0.9 mg/dL (0.6-1.2) 01/21/20 05:21 Estimated GFR > 60 ml/min 01/21/20 05:21 BUN/Creatinine Ratio 23 % 01/21/20 05:21 Glucose 198 mg/dL (65-100) H 01/21/20 05:21 POC Glucose 129 mg/dL (70-105) H 01/24/20 08:10 Lactic Acid 1.10 mmol/L (0.7-2.0) 01/12/20 03:07 Calcium 8.4 mg/dL (8.4-10.2) 01/21/20 05:21 Ferritin > 2000.0 ng/mL (10.0-200.0) H 01/19/20 23:00 Total Bilirubin 0.20 mg/dL (0.1-1.2) 01/21/20 05:21 AST 45 units/L (5-40) H 01/21/20 05:21 ALT 37 units/L (7-56) 01/21/20 05:21 Alkaline Phosphatase 33 units/L (35-129) L 01/21/20 05:21 Ammonia 11.0 umol/L (25-60) L 01/12/20 03:07 Lactate Dehydrogenase 413 units/L (91-180) H 01/19/20 23:00 Total Creatine Kinase 74 units/L (30-135) 01/12/20 03:07 Troponin T < 0.010 ng/mL (0.00-0.029) 01/12/20 05:30 C-Reactive Protein 16.90 mg/dL (0.00-1.30) H 01/19/20 23:00 Total Protein 6.5 g/dL (6.3-8.2) 01/21/20 05:21 Albumin 3.0 g/dL (3.9-5) L 01/21/20 05:21 Albumin/Globulin Ratio 0.9 % 01/21/20 05:21 Procalcitonin < 0.05 ng/mL (<0.15) 01/20/20 16:54 Urine Color Jaycee (Yellow) 01/12/20 Unknown Urine Turbidity Clear (Clear) 01/12/20 Unknown Urine pH 5.0 (5.0-7.0) 01/12/20 Unknown Ur Specific [place] 1.020 (1.003-1.030) 01/12/20 Unknown Urine Protein 30 mg/dl mg/dL (Negative) 01/12/20 Unknown Urine Glucose (UA) Neg mg/dL (Negative) 01/12/20 Unknown Urine Ketones Neg mg/dL (Negative) 01/12/20 Unknown Urine Blood Neg (Negative) 01/12/20 Unknown Urine Nitrite Neg (Negative) 01/12/20 Unknown Urine Bilirubin Neg (Negative) 01/12/20 Unknown Urine Urobilinogen < 2.0 mg/dL (<2.0) 01/12/20 Unknown Ur Leukocyte Esterase Neg (Negative) 01/12/20 Unknown Urine WBC (Auto) 4.0 /HPF (0.0-6.0) 01/12/20 Unknown Urine RBC (Auto) 4.0 /HPF (0.0-6.0) 01/12/20 Unknown Urine Bacteria (Auto) 1+ /HPF (Negative) 01/12/20 Unknown Urine Mucus Few /HPF 01/12/20 Unknown Urine Creatinine 125.0 mg/dL (0.1-20.0) H 01/12/20 13:01 Urine Sodium 127 mmol/L 01/12/20 13:01 Urine Total Protein 31 mg/dL (5-11.8) H 01/12/20 13:01 Salicylates < 0.3 mg/dL (2.8-20.0) L 01/12/20 03:07 Urine Opiates Screen Presumptive negative 01/12/20 Unknown Urine Methadone Screen Presumptive negative 01/12/20 Unknown Acetaminophen 5.0 ug/mL (10.0-30.0) L 01/12/20 03:07 Ur Barbiturates Screen Presumptive negative 01/12/20 Unknown Ur Phencyclidine Scrn Presumptive negative 01/12/20 Unknown Ur Amphetamines Screen Presumptive negative 01/12/20 Unknown U Benzodiazepines Scrn Presumptive negative 01/12/20 Unknown Urine Cocaine Screen Presumptive negative 01/12/20 Unknown U Marijuana (THC) Screen Presumptive negative 01/12/20 Unknown Drugs of Abuse Note Disclamer 01/12/20 Unknown Plasma/Serum Alcohol < 0.01 % (0-0.07) 01/12/20 03:07 Coronavirus (PCR) Positive (Negative) A 01/19/20 Unknown Khan/IV: Voiding Method External Female Catheter IV Catheter Type [Right INT / Saline Lock Forearm] IV Catheter Type [Left Forearm INT / Saline Lock ] IV Catheter Type [Right Upper INT / Saline Lock arm] IV Catheter Type [Left Wrist] INT / Saline Lock IV Catheter Type [Right Distal INT / Saline Lock Port Antecubital] Active Medications - Current Medications Current Medications: Generic Name Dose Route Start Last Admin Trade Name Freq PRN Reason Stop Dose Admin Acetaminophen 650 mg 01/12/20 05:22 01/19/20 05:03 Tylenol PO 650 mg Q4H PRN Administration Pain MILD(1-3)/Fever >100.5/BOO Dexamethasone 6 mg 01/24/20 10:00 Decadron PO 01/29/20 10:01 DAILY LEONARD Dextrose 50 ml 01/12/20 05:22 D50w (25gm) Syringe IV Q30MIN PRN Hypoglycemia Protocol Enoxaparin Sodium 40 mg 01/20/20 22:00 01/23/20 22:43 Enoxaparin SUB-Q 40 mg QDAY@2200 [facility] Administration Protocol REMDESIVIR 100 mg/ Sodium 250 mls @ 500 mls/hr 01/21/20 21:00 01/23/20 22:44 Chloride IV 01/24/20 21:29 500 mls/hr Q24HR@2100 [facility] Administration Insulin Human Lispro 0 unit 01/12/20 07:30 01/23/20 23:55 Humalog SUB-Q Not Given ACHS [facility] Protocol Magnesium Hydroxide 30 ml 01/12/20 05:22 Milk Of Magnesia PO Q4H PRN Constipation Morphine Sulfate 2 mg 01/12/20 05:22 01/20/20 21:40 Morphine IV 2 mg Q4H PRN Administration Pain, Moderate (4-6) Ondansetron HCl 4 mg 01/12/20 05:22 Zofran IV Q8H PRN Nausea And Vomiting Sodium Chloride 10 ml 01/12/20 10:00 01/23/20 22:44 Sodium Chloride Flush Syringe 10 Ml IV 10 ml BID LEONARD Administration Sodium Chloride 10 ml 01/12/20 05:22 Sodium Chloride Flush Syringe 10 Ml IV PRN PRN LINE FLUSH Sodium Chloride 50 ml 01/20/20 18:00 01/23/20 22:44 Nacl 0.9% IV 01/24/20 21:31 50 ml Q24HR@2130 [facility] Administration Nutrition/Malnutrition Assess - Dietary Evaluation Nutrition/Malnutrition Findings: Nutrition Notes Start: 01/12/20 10:30 Freq: Status: Active Protocol: Document 01/20/20 13:05 AB (Rec: 01/20/20 13:10 AB [id number]) Co-Sign 01/20/20 13:05 Nutrition Notes Initial or Follow up Reassessment Current Diagnosis Acute Kidney Injury,Diabetes, Hypertension Other Pertinent Diagnosis CA, AMS Current Diet Cardiac/Consistent CHO Labs/Tests Reviewed Pertinent Medications Reviewed Height 5 ft 6 in Weight 114.3 kg [place] Body Weight (kg) 59.09 BMI 40.6 Weight Status Morbidly Obese Subjective/Other Information Pt awake and responsive. ONS sitting next to bed unopened, per nurse. Nurse reports that pt has not had an appetite d/t COVID symptoms. Percent of energy/protein needs met: 0%/0% Burn Absent Trauma Absent GI Symptoms None Current % PO Negligible Minimum of two criteria No Energy Intake (severe) < or equal to 50% Estimated Energy Requirement > or equal to 5 days #1 Nutrition Diagnosis Inadequate oral intake Diagnosis Progress(for reassessment Continues documentation) Is patient on ventilator? No Is Patient Ambulatory and/or Out of Bed No REE-([place]-St. Jeor-confined to bed) 1967.916 Kcal/Kg value to use for calculation 12 Approximate Energy Requirements Using 1372 kcal/Kg Calculation Used for Recommendations Kcal/kg Additional Notes Protein needs are 87-104g (1-1.2g/kg Adj wt 86.5kg) Fluid needs are 1ml/kcal Nutrition Intervention Change Diet Order: Continue Add Supplement/Snack (indicate name/kcal Glucerna daily /protein ) Provides kCal: 220 Provides Protein (gm) 10 Goal #1 Meet at least 80% of energy and protein needs via PO and ONS when tolerated. Anticipated Discharge Needs: Cardiac/Consistent carb with ONS as needed Follow-Up By: 01/24/20 Additional Comments F/U for intakes and ONS tolerance/need
--- NOTE | 2020-01-24 09:28 | Progress Note ---
Assessment and Plan Cultures: COVID-19 positive A/P: 80-year-old female past medical history hypertension, diabetes, GERD, depression admitted with altered mental status, incidentally found to be Covid positive. #COVID-19: Chest x-ray without consolidation. Incidentally found to placement facility. Patient became hypoxic. Now on 4 L. #Leukopenia: Possibly secondary to COVID-19. Procalcitonin normal #Diabetes: tight glycemic control for best outcomes. #Status post colostomy. Recs: -Continue dexamethasone 6 mg/kg daily for 10 days -D2 of 10 -Continue remdesivir for 5 days-D2 of 5 -Offloading sacral decubitus, small noninfected will follow Fernanda Nichols MD [facility] ([facility]) Office [phone] Subjective Date of service: 01/24/20 Principal diagnosis: COVID Interval history: Now on 4 L nasal cannula, no fever Objective - Exam Narrative Exam: Physical Exam: reviewed ED and hospitalist notes, limited due to conservation of PPE and decrease risk of transmission. General appearance: limited due to conservation of PPE Eyes: limited due to conservation of PPE HENT: Atraumatic; limited due to conservation of PPE Lungs: limited due to conservation of PPE CV: limited due to conservation of PPE Abdomen: limited due to conservation of PPE Extremities: limited due to conservation of PPE Skin: limited due to conservation of PPE Psych: limited due to conservation of PPE Neuro: limited due to conservation of PPE - Constitutional Vitals: Vital Signs Temp Pulse Resp BP Pulse Ox 97.6 F 81 20 162/73 95 01/24/20 04:44 01/23/20 22:15 01/24/20 04:44 01/24/20 04:44 01/23/20 22:15 Temperature -Last 24 Hours Temperature 97.6 F Temperature 97.3 F Temperature 98.7 F Temperature 98.3 F - Labs CBC & Chem 7: 01/22/20 15:39 01/21/20 05:21 Labs: Abnormal lab results 01/23/20 01/23/20 01/23/20 Range/Units 11:51 16:35 23:48 POC Glucose 140 H 185 H 135 H (70-105) mg/dL 01/24/20 Range/Units 08:10 POC Glucose 129 H (70-105) mg/dL
[2020-01-24] MEDS: INSULIN LISPRO 100 UNIT/ML VIAL 3 mL SUB-Q SCH ×4 (09:54→22:38)
[2020-01-24] MEDS: DEXAMETHASONE 4 MG TAB PO SCH (11:06)
[2020-01-24] MEDS: MORPHINE 2 MG/1 ML INJ IV PRN ×2 (11:07→22:34)
[2020-01-24] MEDS: REMDESIVIR 100 MG in SODIUM CHLORIDE 0.9% 250ML 250 ML IV SCH (22:34)
[2020-01-24] MEDS: ENOXAPARIN 40 MG/0.4 ML INJ SUB-Q SCH (22:34)
[2020-01-24] MEDS: SODIUM CHLORIDE 0.9% 50 ML IVPB IV SCH (22:34)
--- NOTE | 2020-01-25 08:43 | Progress Note ---
Assessment and Plan Cultures: COVID-19 positive A/P: 80-year-old female past medical history hypertension, diabetes, GERD, depression admitted with altered mental status, incidentally found to be Covid positive. #COVID-19: Chest x-ray without consolidation. Patient became hypoxic. Remains in 4 L. Markers elevated. #Leukopenia: Possibly secondary to COVID-19. Procalcitonin normal #Diabetes: tight glycemic control for best outcomes. #Status post colostomy. Recs: -Continue dexamethasone 6 mg/kg daily for 10 days -D3 of 10 -Continue remdesivir for 5 days-D3 of 5 -Offloading sacral decubitus, small noninfected -Repeat markers today Overall prognosis guarded will follow Fernanda Nichols MD [facility] ([facility]) Office [phone] Subjective Date of service: 01/25/20 Principal diagnosis: COVID Objective - Constitutional Vitals: Vital Signs Temp Pulse Resp BP Pulse Ox 97.3 F L 67 18 159/52 91 01/25/20 03:13 01/25/20 03:13 01/25/20 03:13 01/25/20 03:13 01/25/20 03:13 Temperature -Last 24 Hours Temperature 97.3 F Temperature 97.7 F Temperature 98.3 F Temperature 98.5 F - Labs CBC & Chem 7: 01/22/20 15:39 01/21/20 05:21 Labs: Abnormal lab results 01/24/20 01/24/20 01/24/20 Range/Units 12:36 16:40 22:36 POC Glucose 159 H 233 H 214 H (70-105) mg/dL
[2020-01-25] MEDS: INSULIN LISPRO 100 UNIT/ML VIAL 3 mL SUB-Q SCH ×4 (08:44→23:00)
--- NOTE | 2020-01-25 08:48 | Progress Note ---
Assessment and Plan Assessment and plan: --Neutropenia; improved[1.8-3.8] Current Visit: Yes Status: Acute. Plan to address problem: Secondary to underlying sepsis And severe Covid 19 infection Continue steroid remdesivir Closely monitor --Severe thrombocytopenia; Current Visit: Yes Status: Acute. Plan to address problem: Improved [phone] Closely monitor, continue current management --Severe COVID-19 infection Current Visit: Yes Status: Acute. Plan to address problem: Contact isolation, droplet precautions Oxygen titrate O2 sats to more than 90% Steroids for total 10 days per protocol remdesivir, oxygen titrate O2 sats to more than 90% High inflammatory markers, Home oxygen evaluation Patient is critically ill, with poor prognosis ID following -- Acute toxic metabolic encephalopathy POA Current Visit: Yes Status: Acute Plan to address problem: Underlying disease process , electrolyte abnormalities Severe neutropenia and thrombocytopenia CT head is normal, Neuro evaluation noted and appreciated PT evaluation, for placement when stable --Type II diabetes mellitus Current Visit: Yes Status: Acute Plan to address problem: We will monitor Accu-Cheks. Sliding scale coverage ADA diet and insulin as needed --Hypertension Current Visit: Yes Status: Acute Plan to address problem: We will resume routine home medications on the monitor vital signs closely. --Acute renal failure present on admission; Current Visit: Yes Status: Acute Plan to address problem: Vasomotor nephropathy resolved --DVT prophylaxis Current Visit: Yes Status: Acute Plan to address problem: Patient on Lovenox --Moderate malnutrition Current Visit: Yes Status: Acute Plan to address problem: hypoalbuminemia, albumin 3.0 Nutrition supplements Nutrition consult if needed --Full code status Current Visit: Yes Status: Acute Patient is critically ill with poor prognosis Severe COVID-19 infection. Plan of care reviewed with the patient and her nurse 01/14/2020 -MARISOL resolved, hyperkalemia resolved. Altered mental status resolved. Patient is weak and states she is feeling sick, evaluated by physical therapy and recommend subacute rehab. We will put case management consult. 01/15/2020 -MARISOL resolved, hyperkalemia resolved. Patient was alert and oriented. PT evaluated and recommended subacute rehab. 01/16/20; electrolytes within normal limits, patient feels better, awaiting placement 01/17/2020; clinically stable for discharge, pending placement 01/18/2020; Covid test sent for placement, stable for discharge, case management processing placement 01/19/2020; COVID-19 test positive, patient also has some low-grade fever, contact and droplet isolation ID consult, transfer to third floor Covid wing 01/20/2020; patient is placed on IV steroids, remdesivir follow markers, ID evaluation noted and appreciated Patient is critically ill with poor prognosis 01/21/2020; neutropenia, secondary to underlying severe sepsis Closely monitor, consider Neupogen and neutropenia isolation if neutrophils drop further We will also consider hematology evaluation if needed Patient is critically ill with very poor prognosis 01/23/2020; neutropenia and thrombocytopenia improved, closely monitor Patient receiving steroids and remdesivir, follow ID recommendations 01/24/2020. Patient to complete remdesivir today. Continue steroids per ID recommendations. Patient currently without oxygen and satting 95% on room air. Discussed with case management possibility of discharge to Covid unit at a nursing facility. 01/25/2020. Continue steroids per ID recommendations. Remdesivir completed. Discussed with case management possibility of discharge to Covid unit at a nursing facility. History Interval history: 80-year-old female past medical history hypertension, diabetes, GERD, depression brought to the hospital for altered mental status. As noted the patient was in a senior care, and was not acting in her usual manner. No other acute complaints were noted at the time. She was admitted for MARISOL and mental changes. Discharge planning was occurring, and an order for placement to occur a Covid test was required, which returned positive. Hospitalist Physical - Constitutional Vitals: Temp Pulse Resp BP Pulse Ox 97.3 F L 67 18 159/52 91 01/25/20 03:13 01/25/20 03:13 01/25/20 03:13 01/25/20 03:13 01/25/20 03:13 General appearance: Present: no acute distress, well-nourished, obese (Morbidly obese) - EENT Eyes: Present: PERRL, EOM intact ENT: hearing intact, clear oral mucosa, dentition normal - Neck Neck: Present: supple, normal ROM - Respiratory Respiratory effort: normal Respiratory: bilateral: CTA - Cardiovascular Rhythm: regular Heart Sounds: Present: S1 & S2. Absent: gallop, rub - Extremities Extremities: no ischemia, No edema, Full ROM - Abdominal General gastrointestinal: soft, non-tender, non-distended, normal bowel sounds - Integumentary Integumentary: Present: clear, warm, dry - Neurologic Neurologic: CNII-XII intact, moves all extremities HEART Score - HEART Score Troponin: Troponin T < 0.010 ng/mL (0.00-0.029) 01/12/20 05:30 Results - Labs CBC & Chem 7: 01/22/20 15:39 01/21/20 05:21 Labs: Laboratory Last Values WBC 3.8 K/mm3 (4.5-11.0) L 01/22/20 15:39 RBC 3.08 M/mm3 (3.65-5.03) L 01/22/20 15:39 Hgb 9.5 gm/dl (10.1-14.3) L 01/22/20 15:39 Hct 28.9 % (30.3-42.9) L 01/22/20 15:39 MCV 94 fl (79-97) 01/22/20 15:39 MCH 31 pg (28-32) 01/22/20 15:39 MCHC 33 % (30-34) 01/22/20 15:39 RDW 14.2 % (13.2-15.2) 01/22/20 15:39 Plt Count 355 K/mm3 (140-440) 01/22/20 15:39 Lymph % (Auto) 11.3 % (13.4-35.0) L 01/22/20 15:39 [place] % (Auto) 13.3 % (0.0-7.3) H 01/22/20 15:39 Eos % (Auto) 0.0 % (0.0-4.3) 01/22/20 15:39 Baso % (Auto) 0.3 % (0.0-1.8) 01/22/20 15:39 Lymph # (Auto) 0.4 K/mm3 (1.2-5.4) L 01/22/20 15:39 [place]ander # (Auto) 0.5 K/mm3 (0.0-0.8) 01/22/20 15:39 Eos # (Auto) 0.0 K/mm3 (0.0-0.4) 01/22/20 15:39 Baso # (Auto) 0.0 K/mm3 (0.0-0.1) 01/22/20 15:39 Add Manual Diff Complete 01/21/20 05:21 Total Counted 50 01/21/20 05:21 Seg Neutrophils % 75.1 % (40.0-70.0) H 01/22/20 15:39 Seg Neuts % (Manual) 86.0 % (40.0-70.0) H 01/21/20 05:21 Band Neutrophils % 4.0 % 01/21/20 05:21 Lymphocytes % (Manual) 4.0 % (13.4-35.0) L 01/21/20 05:21 Reactive Lymphs % (Man) 0 % 01/21/20 05:21 Monocytes % (Manual) 4.0 % (0.0-7.3) 01/21/20 05:21 Eosinophils % (Manual) 2.0 % (0.0-4.3) 01/21/20 05:21 Basophils % (Manual) 0 % (0.0-1.8) 01/21/20 05:21 Metamyelocytes % 0 % 01/21/20 05:21 Myelocytes % 0 % 01/21/20 05:21 Promyelocytes % 0 % 01/21/20 05:21 Blast Cells % 0 % 01/21/20 05:21 Nucleated RBC % Not Reportable 01/21/20 05:21 Seg Neutrophils # 2.9 K/mm3 (1.8-7.7) 01/22/20 15:39 Seg Neutrophils # Man 1.5 K/mm3 (1.8-7.7) L 01/21/20 05:21 Band Neutrophils # 0.1 K/mm3 01/21/20 05:21 Lymphocytes # (Manual) 0.1 K/mm3 (1.2-5.4) L 01/21/20 05:21 Abs React Lymphs (Man) 0.0 K/mm3 01/21/20 05:21 Monocytes # (Manual) 0.1 K/mm3 (0.0-0.8) 01/21/20 05:21 Eosinophils # (Manual) 0.0 K/mm3 (0.0-0.4) 01/21/20 05:21 Basophils # (Manual) 0.0 K/mm3 (0.0-0.1) 01/21/20 05:21 Metamyelocytes # 0.0 K/mm3 01/21/20 05:21 Myelocytes # 0.0 K/mm3 01/21/20 05:21 Promyelocytes # 0.0 K/mm3 01/21/20 05:21 Blast Cells # 0.0 K/mm3 01/21/20 05:21 WBC Morphology Not Reportable 01/21/20 05:21 Hypersegmented Neuts Not Reportable 01/21/20 05:21 Hyposegmented Neuts Not Reportable 01/21/20 05:21 Hypogranular Neuts Not Reportable 01/21/20 05:21 Smudge Cells Not Reportable 01/21/20 05:21 Toxic Granulation Not Reportable 01/21/20 05:21 Toxic Vacuolation Not Reportable 01/21/20 05:21 Dohle Bodies Not Reportable 01/21/20 05:21 Pelger-Huet Anomaly Not Reportable 01/21/20 05:21 Stephen Rods Not Reportable 01/21/20 05:21 Platelet Estimate Consistent w auto 01/21/20 05:21 Clumped Platelets Not Reportable 01/21/20 05:21 Plt Clumps, EDTA Not Reportable 01/21/20 05:21 Large Platelets Not Reportable 01/21/20 05:21 Giant Platelets Not Reportable 01/21/20 05:21 Platelet Satelliting Not Reportable 01/21/20 05:21 Plt Morphology Comment Not Reportable 01/21/20 05:21 RBC Morphology Not Reportable 01/21/20 05:21 Dimorphic RBCs Not Reportable 01/21/20 05:21 Polychromasia Not Reportable 01/21/20 05:21 Hypochromasia Not Reportable 01/21/20 05:21 Poikilocytosis Not Reportable 01/21/20 05:21 Anisocytosis 1+ 01/21/20 05:21 Microcytosis Not Reportable 01/21/20 05:21 Macrocytosis Not Reportable 01/21/20 05:21 Spherocytes Not Reportable 01/21/20 05:21 Pappenheimer Bodies Not Reportable 01/21/20 05:21 Sickle Cells Not Reportable 01/21/20 05:21 Target Cells Not Reportable 01/21/20 05:21 Tear Drop Cells Not Reportable 01/21/20 05:21 Ovalocytes Not Reportable 01/21/20 05:21 Helmet Cells Not Reportable 01/21/20 05:21 [place] Bodies Not Reportable 01/21/20 05:21 [place] Rings Not Reportable 01/21/20 05:21 [place] Cells Not Reportable 01/21/20 05:21 Bite Cells Not Reportable 01/21/20 05:21 Crenated Cell Not Reportable 01/21/20 05:21 Elliptocytes Not Reportable 01/21/20 05:21 Acanthocytes (Spur) Not Reportable 01/21/20 05:21 Rouleaux Not Reportable 01/21/20 05:21 Hemoglobin C Crystals Not Reportable 01/21/20 05:21 Schistocytes Not Reportable 01/21/20 05:21 Malaria parasites Not Reportable 01/21/20 05:21 Chaitanya Bodies Not Reportable 01/21/20 05:21 Hem Pathologist Commnt No 01/21/20 05:21 D-Dimer 1552.39 ng/mlDDU (0-234) H 01/19/20 23:00 Sodium 142 mmol/L (137-145) 01/21/20 05:21 Potassium 5.1 mmol/L (3.6-5.0) H 01/21/20 05:21 Chloride 104.9 mmol/L (98-107) 01/21/20 05:21 Carbon Dioxide 23 mmol/L (22-30) 01/21/20 05:21 Anion Gap 19 mmol/L 01/21/20 05:21 BUN 21 mg/dL (7-17) H 01/21/20 05:21 Creatinine 0.9 mg/dL (0.6-1.2) 01/21/20 05:21 Estimated GFR > 60 ml/min 01/21/20 05:21 BUN/Creatinine Ratio 23 % 01/21/20 05:21 Glucose 198 mg/dL (65-100) H 01/21/20 05:21 POC Glucose 123 mg/dL (70-105) H 01/25/20 08:41 Lactic Acid 1.10 mmol/L (0.7-2.0) 01/12/20 03:07 Calcium 8.4 mg/dL (8.4-10.2) 01/21/20 05:21 Ferritin > 2000.0 ng/mL (10.0-200.0) H 01/19/20 23:00 Total Bilirubin 0.20 mg/dL (0.1-1.2) 01/21/20 05:21 AST 45 units/L (5-40) H 01/21/20 05:21 ALT 37 units/L (7-56) 01/21/20 05:21 Alkaline Phosphatase 33 units/L (35-129) L 01/21/20 05:21 Ammonia 11.0 umol/L (25-60) L 01/12/20 03:07 Lactate Dehydrogenase 413 units/L (91-180) H 01/19/20 23:00 Total Creatine Kinase 74 units/L (30-135) 01/12/20 03:07 Troponin T < 0.010 ng/mL (0.00-0.029) 01/12/20 05:30 C-Reactive Protein 16.90 mg/dL (0.00-1.30) H 01/19/20 23:00 Total Protein 6.5 g/dL (6.3-8.2) 01/21/20 05:21 Albumin 3.0 g/dL (3.9-5) L 01/21/20 05:21 Albumin/Globulin Ratio 0.9 % 01/21/20 05:21 Procalcitonin < 0.05 ng/mL (<0.15) 01/20/20 16:54 Urine Color Jaycee (Yellow) 01/12/20 Unknown Urine Turbidity Clear (Clear) 01/12/20 Unknown Urine pH 5.0 (5.0-7.0) 01/12/20 Unknown Ur Specific [place] 1.020 (1.003-1.030) 01/12/20 Unknown Urine Protein 30 mg/dl mg/dL (Negative) 01/12/20 Unknown Urine Glucose (UA) Neg mg/dL (Negative) 01/12/20 Unknown Urine Ketones Neg mg/dL (Negative) 01/12/20 Unknown Urine Blood Neg (Negative) 01/12/20 Unknown Urine Nitrite Neg (Negative) 01/12/20 Unknown Urine Bilirubin Neg (Negative) 01/12/20 Unknown Urine Urobilinogen < 2.0 mg/dL (<2.0) 01/12/20 Unknown Ur Leukocyte Esterase Neg (Negative) 01/12/20 Unknown Urine WBC (Auto) 4.0 /HPF (0.0-6.0) 01/12/20 Unknown Urine RBC (Auto) 4.0 /HPF (0.0-6.0) 01/12/20 Unknown Urine Bacteria (Auto) 1+ /HPF (Negative) 01/12/20 Unknown Urine Mucus Few /HPF 01/12/20 Unknown Urine Creatinine 125.0 mg/dL (0.1-20.0) H 01/12/20 13:01 Urine Sodium 127 mmol/L 01/12/20 13:01 Urine Total Protein 31 mg/dL (5-11.8) H 01/12/20 13:01 Salicylates < 0.3 mg/dL (2.8-20.0) L 01/12/20 03:07 Urine Opiates Screen Presumptive negative 01/12/20 Unknown Urine Methadone Screen Presumptive negative 01/12/20 Unknown Acetaminophen 5.0 ug/mL (10.0-30.0) L 01/12/20 03:07 Ur Barbiturates Screen Presumptive negative 01/12/20 Unknown Ur Phencyclidine Scrn Presumptive negative 01/12/20 Unknown Ur Amphetamines Screen Presumptive negative 01/12/20 Unknown U Benzodiazepines Scrn Presumptive negative 01/12/20 Unknown Urine Cocaine Screen Presumptive negative 01/12/20 Unknown U Marijuana (THC) Screen Presumptive negative 01/12/20 Unknown Drugs of Abuse Note Disclamer 01/12/20 Unknown Plasma/Serum Alcohol < 0.01 % (0-0.07) 01/12/20 03:07 Coronavirus (PCR) Positive (Negative) A 01/19/20 Unknown Khan/IV: Voiding Method External Female Catheter IV Catheter Type [Right INT / Saline Lock Forearm] IV Catheter Type [Left Forearm INT / Saline Lock ] IV Catheter Type [Right Upper INT / Saline Lock arm] IV Catheter Type [Left Wrist] INT / Saline Lock IV Catheter Type [Right Distal INT / Saline Lock Port Antecubital] Active Medications - Current Medications Current Medications: Generic Name Dose Route Start Last Admin Trade Name Freq PRN Reason Stop Dose Admin Acetaminophen 650 mg 01/12/20 05:22 01/19/20 05:03 Tylenol PO 650 mg Q4H PRN Administration Pain MILD(1-3)/Fever >100.5/BOO Dexamethasone 6 mg 01/24/20 10:00 01/24/20 11:06 Decadron PO 01/29/20 10:01 6 mg DAILY LEONARD Administration Dextrose 50 ml 01/12/20 05:22 D50w (25gm) Syringe IV Q30MIN PRN Hypoglycemia Protocol Enoxaparin Sodium 40 mg 01/20/20 22:00 01/24/20 22:34 Enoxaparin SUB-Q 40 mg QDAY@2200 LEONARD Administration Protocol Insulin Human Lispro 0 unit 01/12/20 07:30 01/25/20 08:44 Humalog SUB-Q Not Given ACHS [facility] Protocol Magnesium Hydroxide 30 ml 01/12/20 05:22 Milk Of Magnesia PO Q4H PRN Constipation Morphine Sulfate 2 mg 01/12/20 05:22 01/24/20 22:34 Morphine IV 2 mg Q4H PRN Administration Pain, Moderate (4-6) Ondansetron HCl 4 mg 01/12/20 05:22 01/24/20 22:34 Zofran IV 4 mg Q8H PRN Administration Nausea And Vomiting Sodium Chloride 10 ml 01/12/20 10:00 01/24/20 22:35 Sodium Chloride Flush Syringe 10 Ml IV 10 ml BID LEONARD Administration Sodium Chloride 10 ml 01/12/20 05:22 Sodium Chloride Flush Syringe 10 Ml IV PRN PRN LINE FLUSH Nutrition/Malnutrition Assess - Dietary Evaluation Nutrition/Malnutrition Findings: Nutrition Notes Start: 01/12/20 10:30 Freq: Status: Active Protocol: Document 01/24/20 14:16 AT (Rec: 01/24/20 14:23 AT [id number]) Co-Sign 01/24/20 14:16 LP Nutrition Notes Initial or Follow up Reassessment Current Diagnosis Acute Kidney Injury,Diabetes, Hypertension Other Pertinent Diagnosis CA, AMS Current Diet Cardiac/Consistent CHO Labs/Tests Reviewed Pertinent Medications Reviewed Height 5 ft 6 in Weight 114.3 kg [place] Body Weight (kg) 59.09 BMI 40.6 Weight Status Morbidly Obese Subjective/Other Information F/U for intakes and ONS tolerance/needs. Per chart, pt had intakes of 0% at breakfast and 25% at dinner. Per RN, pt ate 50% of her meals today and 75% of ONS. Percent of energy/protein needs met: 58%/57% Burn Absent Trauma Absent GI Symptoms None Difficulty In Swallowing Current % PO Poor (25-49%) Minimum of two criteria No Energy Intake (severe) < or equal to 50% Estimated Energy Requirement > or equal to 5 days #1 Nutrition Diagnosis Inadequate oral intake Diagnosis Progress(for reassessment Continues documentation) Is patient on ventilator? No Is Patient Ambulatory and/or Out of Bed No REE-([place]-St. Jeor-confined to bed) 1967.916 Kcal/Kg value to use for calculation 12 Approximate Energy Requirements Using 1372 kcal/Kg Calculation Used for Recommendations Kcal/kg Additional Notes PRO needs: 87-104 g(1-1.2g/kg AdBW 86.5kg) Fluid needs: 1 mL/kcal Nutrition Intervention Change Diet Order: Continue Add Supplement/Snack (indicate name/kcal Glucerna daily /protein ) Provides kCal: 220 Provides Protein (gm) 10 Goal #1 Meet at least 75% of estimated energy and protein needs Anticipated Discharge Needs: Cardiac/Consistent carb with ONS as needed Follow-Up By: 01/26/20 Additional Comments F/U for stable PO intakes
[2020-01-25] MEDS: DEXAMETHASONE 4 MG TAB PO SCH (10:22)
[2020-01-25 11:57] LABS: C-Reactive Protein 3.2 mg/dL (0.00-1.30)
[2020-01-25] MEDS: ENOXAPARIN 40 MG/0.4 ML INJ SUB-Q SCH (22:52)
[2020-01-26] MEDS: INSULIN LISPRO 100 UNIT/ML VIAL 3 mL SUB-Q SCH ×4 (08:18→22:54)
--- NOTE | 2020-01-26 09:18 | Progress Note ---
Assessment and Plan Assessment and plan: --Neutropenia; improved[1.8-3.8] Current Visit: Yes Status: Acute. Plan to address problem: Secondary to underlying sepsis And severe Covid 19 infection Continue steroid remdesivir Closely monitor --Severe thrombocytopenia; Current Visit: Yes Status: Acute. Plan to address problem: Improved [phone] Closely monitor, continue current management --Severe COVID-19 infection Current Visit: Yes Status: Acute. Plan to address problem: Contact isolation, droplet precautions Oxygen titrate O2 sats to more than 90% Steroids for total 10 days per protocol remdesivir, oxygen titrate O2 sats to more than 90% High inflammatory markers, Home oxygen evaluation Patient is critically ill, with poor prognosis ID following -- Acute toxic metabolic encephalopathy POA Current Visit: Yes Status: Acute Plan to address problem: Underlying disease process , electrolyte abnormalities Severe neutropenia and thrombocytopenia CT head is normal, Neuro evaluation noted and appreciated PT evaluation, for placement when stable --Type II diabetes mellitus Current Visit: Yes Status: Acute Plan to address problem: We will monitor Accu-Cheks. Sliding scale coverage ADA diet and insulin as needed --Hypertension Current Visit: Yes Status: Acute Plan to address problem: We will resume routine home medications on the monitor vital signs closely. --Acute renal failure present on admission; Current Visit: Yes Status: Acute Plan to address problem: Vasomotor nephropathy resolved --DVT prophylaxis Current Visit: Yes Status: Acute Plan to address problem: Patient on Lovenox --Moderate malnutrition Current Visit: Yes Status: Acute Plan to address problem: hypoalbuminemia, albumin 3.0 Nutrition supplements Nutrition consult if needed --Full code status Current Visit: Yes Status: Acute Patient is critically ill with poor prognosis Severe COVID-19 infection. Plan of care reviewed with the patient and her nurse 01/14/2020 -MARISOL resolved, hyperkalemia resolved. Altered mental status resolved. Patient is weak and states she is feeling sick, evaluated by physical therapy and recommend subacute rehab. We will put case management consult. 01/15/2020 -MARISOL resolved, hyperkalemia resolved. Patient was alert and oriented. PT evaluated and recommended subacute rehab. 01/16/20; electrolytes within normal limits, patient feels better, awaiting placement 01/17/2020; clinically stable for discharge, pending placement 01/18/2020; Covid test sent for placement, stable for discharge, case management processing placement 01/19/2020; COVID-19 test positive, patient also has some low-grade fever, contact and droplet isolation ID consult, transfer to third floor Covid wing 01/20/2020; patient is placed on IV steroids, remdesivir follow markers, ID evaluation noted and appreciated Patient is critically ill with poor prognosis 01/21/2020; neutropenia, secondary to underlying severe sepsis Closely monitor, consider Neupogen and neutropenia isolation if neutrophils drop further We will also consider hematology evaluation if needed Patient is critically ill with very poor prognosis 01/23/2020; neutropenia and thrombocytopenia improved, closely monitor Patient receiving steroids and remdesivir, follow ID recommendations 01/24/2020. Patient to complete remdesivir today. Continue steroids per ID recommendations. Patient currently without oxygen and satting 95% on room air. Discussed with case management possibility of discharge to Covid unit at a nursing facility. 01/25/2020. Continue steroids per ID recommendations. Remdesivir completed. Discussed with case management possibility of discharge to Covid unit at a nursing facility. 01/26/2020. Continue dexamethasone per ID recommendation. Inflammatory markers remain elevated with D-dimer 857, ferritin 1362, and CRP 3.2. Mobility protocols for pressure ulcer prophylaxis. History Interval history: 80-year-old female past medical history hypertension, diabetes, GERD, depression brought to the hospital for altered mental status. As noted the patient was in a prison, and was not acting in her usual manner. No other acute complaints were noted at the time. She was admitted for MARISOL and mental changes. Discharge planning was occurring, and an order for placement to occur a Covid test was required, which returned positive. Hospitalist Physical - Constitutional Vitals: Temp Pulse Resp BP Pulse Ox 98.0 F 71 20 162/71 90 01/26/20 06:55 01/26/20 06:55 01/26/20 06:55 01/26/20 06:55 01/26/20 06:55 General appearance: Present: no acute distress, well-nourished, obese (Morbidly obese) - EENT Eyes: Present: PERRL, EOM intact ENT: hearing intact, clear oral mucosa, dentition normal - Neck Neck: Present: supple, normal ROM - Respiratory Respiratory effort: normal Respiratory: bilateral: CTA - Cardiovascular Rhythm: regular Heart Sounds: Present: S1 & S2. Absent: gallop, rub - Extremities Extremities: no ischemia, No edema, Full ROM - Abdominal General gastrointestinal: soft, non-tender, non-distended, normal bowel sounds - Integumentary Integumentary: Present: clear, warm, dry - Neurologic Neurologic: CNII-XII intact, moves all extremities HEART Score - HEART Score Troponin: Troponin T < 0.010 ng/mL (0.00-0.029) 01/12/20 05:30 Results - Labs CBC & Chem 7: 01/22/20 15:39 01/21/20 05:21 Labs: Laboratory Last Values WBC 3.8 K/mm3 (4.5-11.0) L 01/22/20 15:39 RBC 3.08 M/mm3 (3.65-5.03) L 01/22/20 15:39 Hgb 9.5 gm/dl (10.1-14.3) L 01/22/20 15:39 Hct 28.9 % (30.3-42.9) L 01/22/20 15:39 MCV 94 fl (79-97) 01/22/20 15:39 MCH 31 pg (28-32) 01/22/20 15:39 MCHC 33 % (30-34) 01/22/20 15:39 RDW 14.2 % (13.2-15.2) 01/22/20 15:39 Plt Count 355 K/mm3 (140-440) 01/22/20 15:39 Lymph % (Auto) 11.3 % (13.4-35.0) L 01/22/20 15:39 Hall % (Auto) 13.3 % (0.0-7.3) H 01/22/20 15:39 Eos % (Auto) 0.0 % (0.0-4.3) 01/22/20 15:39 Baso % (Auto) 0.3 % (0.0-1.8) 01/22/20 15:39 Lymph # (Auto) 0.4 K/mm3 (1.2-5.4) L 01/22/20 15:39 Hall # (Auto) 0.5 K/mm3 (0.0-0.8) 01/22/20 15:39 Eos # (Auto) 0.0 K/mm3 (0.0-0.4) 01/22/20 15:39 Baso # (Auto) 0.0 K/mm3 (0.0-0.1) 01/22/20 15:39 Add Manual Diff Complete 01/21/20 05:21 Total Counted 50 01/21/20 05:21 Seg Neutrophils % 75.1 % (40.0-70.0) H 01/22/20 15:39 Seg Neuts % (Manual) 86.0 % (40.0-70.0) H 01/21/20 05:21 Band Neutrophils % 4.0 % 01/21/20 05:21 Lymphocytes % (Manual) 4.0 % (13.4-35.0) L 01/21/20 05:21 Reactive Lymphs % (Man) 0 % 01/21/20 05:21 Monocytes % (Manual) 4.0 % (0.0-7.3) 01/21/20 05:21 Eosinophils % (Manual) 2.0 % (0.0-4.3) 01/21/20 05:21 Basophils % (Manual) 0 % (0.0-1.8) 01/21/20 05:21 Metamyelocytes % 0 % 01/21/20 05:21 Myelocytes % 0 % 01/21/20 05:21 Promyelocytes % 0 % 01/21/20 05:21 Blast Cells % 0 % 01/21/20 05:21 Nucleated RBC % Not Reportable 01/21/20 05:21 Seg Neutrophils # 2.9 K/mm3 (1.8-7.7) 01/22/20 15:39 Seg Neutrophils # Man 1.5 K/mm3 (1.8-7.7) L 01/21/20 05:21 Band Neutrophils # 0.1 K/mm3 01/21/20 05:21 Lymphocytes # (Manual) 0.1 K/mm3 (1.2-5.4) L 01/21/20 05:21 Abs React Lymphs (Man) 0.0 K/mm3 01/21/20 05:21 Monocytes # (Manual) 0.1 K/mm3 (0.0-0.8) 01/21/20 05:21 Eosinophils # (Manual) 0.0 K/mm3 (0.0-0.4) 01/21/20 05:21 Basophils # (Manual) 0.0 K/mm3 (0.0-0.1) 01/21/20 05:21 Metamyelocytes # 0.0 K/mm3 01/21/20 05:21 Myelocytes # 0.0 K/mm3 01/21/20 05:21 Promyelocytes # 0.0 K/mm3 01/21/20 05:21 Blast Cells # 0.0 K/mm3 01/21/20 05:21 WBC Morphology Not Reportable 01/21/20 05:21 Hypersegmented Neuts Not Reportable 01/21/20 05:21 Hyposegmented Neuts Not Reportable 01/21/20 05:21 Hypogranular Neuts Not Reportable 01/21/20 05:21 Smudge Cells Not Reportable 01/21/20 05:21 Toxic Granulation Not Reportable 01/21/20 05:21 Toxic Vacuolation Not Reportable 01/21/20 05:21 Dohle Bodies Not Reportable 01/21/20 05:21 Pelger-Huet Anomaly Not Reportable 01/21/20 05:21 Stephen Rods Not Reportable 01/21/20 05:21 Platelet Estimate Consistent w auto 01/21/20 05:21 Clumped Platelets Not Reportable 01/21/20 05:21 Plt Clumps, EDTA Not Reportable 01/21/20 05:21 Large Platelets Not Reportable 01/21/20 05:21 Giant Platelets Not Reportable 01/21/20 05:21 Platelet Satelliting Not Reportable 01/21/20 05:21 Plt Morphology Comment Not Reportable 01/21/20 05:21 RBC Morphology Not Reportable 01/21/20 05:21 Dimorphic RBCs Not Reportable 01/21/20 05:21 Polychromasia Not Reportable 01/21/20 05:21 Hypochromasia Not Reportable 01/21/20 05:21 Poikilocytosis Not Reportable 01/21/20 05:21 Anisocytosis 1+ 01/21/20 05:21 Microcytosis Not Reportable 01/21/20 05:21 Macrocytosis Not Reportable 01/21/20 05:21 Spherocytes Not Reportable 01/21/20 05:21 Pappenheimer Bodies Not Reportable 01/21/20 05:21 Sickle Cells Not Reportable 01/21/20 05:21 Target Cells Not Reportable 01/21/20 05:21 Tear Drop Cells Not Reportable 01/21/20 05:21 Ovalocytes Not Reportable 01/21/20 05:21 Helmet Cells Not Reportable 01/21/20 05:21 [place] Bodies Not Reportable 01/21/20 05:21 Gracey Rings Not Reportable 01/21/20 05:21 [place] Cells Not Reportable 01/21/20 05:21 Bite Cells Not Reportable 01/21/20 05:21 Crenated Cell Not Reportable 01/21/20 05:21 Elliptocytes Not Reportable 01/21/20 05:21 Acanthocytes (Spur) Not Reportable 01/21/20 05:21 Rouleaux Not Reportable 01/21/20 05:21 Hemoglobin C Crystals Not Reportable 01/21/20 05:21 Schistocytes Not Reportable 01/21/20 05:21 Malaria parasites Not Reportable 01/21/20 05:21 Chaitanya Bodies Not Reportable 01/21/20 05:21 Hem Pathologist Commnt No 01/21/20 05:21 D-Dimer 857.98 ng/mlDDU (0-234) H 01/25/20 11:03 Sodium 142 mmol/L (137-145) 01/21/20 05:21 Potassium 5.1 mmol/L (3.6-5.0) H 01/21/20 05:21 Chloride 104.9 mmol/L (98-107) 01/21/20 05:21 Carbon Dioxide 23 mmol/L (22-30) 01/21/20 05:21 Anion Gap 19 mmol/L 01/21/20 05:21 BUN 21 mg/dL (7-17) H 01/21/20 05:21 Creatinine 0.9 mg/dL (0.6-1.2) 01/21/20 05:21 Estimated GFR > 60 ml/min 01/21/20 05:21 BUN/Creatinine Ratio 23 % 01/21/20 05:21 Glucose 198 mg/dL (65-100) H 01/21/20 05:21 POC Glucose 143 mg/dL (70-105) H 01/26/20 07:36 Lactic Acid 1.10 mmol/L (0.7-2.0) 01/12/20 03:07 Calcium 8.4 mg/dL (8.4-10.2) 01/21/20 05:21 Ferritin 1362.0 ng/mL (10.0-200.0) H 01/25/20 11:03 Total Bilirubin 0.20 mg/dL (0.1-1.2) 01/21/20 05:21 AST 45 units/L (5-40) H 01/21/20 05:21 ALT 37 units/L (7-56) 01/21/20 05:21 Alkaline Phosphatase 33 units/L (35-129) L 01/21/20 05:21 Ammonia 11.0 umol/L (25-60) L 01/12/20 03:07 Lactate Dehydrogenase 340 units/L (91-180) H 01/25/20 11:03 Total Creatine Kinase 74 units/L (30-135) 01/12/20 03:07 Troponin T < 0.010 ng/mL (0.00-0.029) 01/12/20 05:30 C-Reactive Protein 3.20 mg/dL (0.00-1.30) H 01/25/20 11:03 Total Protein 6.5 g/dL (6.3-8.2) 01/21/20 05:21 Albumin 3.0 g/dL (3.9-5) L 01/21/20 05:21 Albumin/Globulin Ratio 0.9 % 01/21/20 05:21 Procalcitonin < 0.05 ng/mL (<0.15) 01/20/20 16:54 Urine Color Jaycee (Yellow) 01/12/20 Unknown Urine Turbidity Clear (Clear) 01/12/20 Unknown Urine pH 5.0 (5.0-7.0) 01/12/20 Unknown Ur Specific Tony 1.020 (1.003-1.030) 01/12/20 Unknown Urine Protein 30 mg/dl mg/dL (Negative) 01/12/20 Unknown Urine Glucose (UA) Neg mg/dL (Negative) 01/12/20 Unknown Urine Ketones Neg mg/dL (Negative) 01/12/20 Unknown Urine Blood Neg (Negative) 01/12/20 Unknown Urine Nitrite Neg (Negative) 01/12/20 Unknown Urine Bilirubin Neg (Negative) 01/12/20 Unknown Urine Urobilinogen < 2.0 mg/dL (<2.0) 01/12/20 Unknown Ur Leukocyte Esterase Neg (Negative) 01/12/20 Unknown Urine WBC (Auto) 4.0 /HPF (0.0-6.0) 01/12/20 Unknown Urine RBC (Auto) 4.0 /HPF (0.0-6.0) 01/12/20 Unknown Urine Bacteria (Auto) 1+ /HPF (Negative) 01/12/20 Unknown Urine Mucus Few /HPF 01/12/20 Unknown Urine Creatinine 125.0 mg/dL (0.1-20.0) H 01/12/20 13:01 Urine Sodium 127 mmol/L 01/12/20 13:01 Urine Total Protein 31 mg/dL (5-11.8) H 01/12/20 13:01 Salicylates < 0.3 mg/dL (2.8-20.0) L 01/12/20 03:07 Urine Opiates Screen Presumptive negative 01/12/20 Unknown Urine Methadone Screen Presumptive negative 01/12/20 Unknown Acetaminophen 5.0 ug/mL (10.0-30.0) L 01/12/20 03:07 Ur Barbiturates Screen Presumptive negative 01/12/20 Unknown Ur Phencyclidine Scrn Presumptive negative 01/12/20 Unknown Ur Amphetamines Screen Presumptive negative 01/12/20 Unknown U Benzodiazepines Scrn Presumptive negative 01/12/20 Unknown Urine Cocaine Screen Presumptive negative 01/12/20 Unknown U Marijuana (THC) Screen Presumptive negative 01/12/20 Unknown Drugs of Abuse Note Disclamer 01/12/20 Unknown Plasma/Serum Alcohol < 0.01 % (0-0.07) 01/12/20 03:07 Coronavirus (PCR) Positive (Negative) A 01/19/20 Unknown Khan/IV: Voiding Method Incontinent IV Catheter Type [Right INT / Saline Lock Forearm] IV Catheter Type [Left Forearm INT / Saline Lock ] IV Catheter Type [Right Upper INT / Saline Lock arm] IV Catheter Type [Left Wrist] INT / Saline Lock IV Catheter Type [Right Distal INT / Saline Lock Port Antecubital] Active Medications - Current Medications Current Medications: Generic Name Dose Route Start Last Admin Trade Name Freq PRN Reason Stop Dose Admin Acetaminophen 650 mg 01/12/20 05:22 01/19/20 05:03 Tylenol PO 650 mg Q4H PRN Administration Pain MILD(1-3)/Fever >100.5/BOO Dexamethasone 6 mg 01/24/20 10:00 01/25/20 10:22 Decadron PO 01/29/20 10:01 6 mg DAILY LEONARD Administration Dextrose 50 ml 01/12/20 05:22 D50w (25gm) Syringe IV Q30MIN PRN Hypoglycemia Protocol Enoxaparin Sodium 40 mg 01/20/20 22:00 01/25/20 22:52 Enoxaparin SUB-Q 40 mg QDAY@2200 LEONARD Administration Protocol Insulin Human Lispro 0 unit 01/12/20 07:30 01/26/20 08:18 Humalog SUB-Q Not Given ACHS [facility] Protocol Magnesium Hydroxide 30 ml 01/12/20 05:22 Milk Of Magnesia PO Q4H PRN Constipation Morphine Sulfate 2 mg 01/12/20 05:22 01/24/20 22:34 Morphine IV 2 mg Q4H PRN Administration Pain, Moderate (4-6) Ondansetron HCl 4 mg 01/12/20 05:22 01/24/20 22:34 Zofran IV 4 mg Q8H PRN Administration Nausea And Vomiting Sodium Chloride 10 ml 01/12/20 10:00 01/25/20 22:55 Sodium Chloride Flush Syringe 10 Ml IV 10 ml BID LEONARD Administration Sodium Chloride 10 ml 01/12/20 05:22 Sodium Chloride Flush Syringe 10 Ml IV PRN PRN LINE FLUSH Nutrition/Malnutrition Assess - Dietary Evaluation Nutrition/Malnutrition Findings: Nutrition Notes Start: 01/12/20 10:30 Freq: Status: Active Protocol: Document 01/24/20 14:16 AT (Rec: 01/24/20 14:23 AT [id number]) Co-Sign 01/24/20 14:16 LP Nutrition Notes Initial or Follow up Reassessment Current Diagnosis Acute Kidney Injury,Diabetes, Hypertension Other Pertinent Diagnosis CA, AMS Current Diet Cardiac/Consistent CHO Labs/Tests Reviewed Pertinent Medications Reviewed Height 5 ft 6 in Weight 114.3 kg Lindsay Body Weight (kg) 59.09 BMI 40.6 Weight Status Morbidly Obese Subjective/Other Information F/U for intakes and ONS tolerance/needs. Per chart, pt had intakes of 0% at breakfast and 25% at dinner. Per RN, pt ate 50% of her meals today and 75% of ONS. Percent of energy/protein needs met: 58%/57% Burn Absent Trauma Absent GI Symptoms None Difficulty In Swallowing Current % PO Poor (25-49%) Minimum of two criteria No Energy Intake (severe) < or equal to 50% Estimated Energy Requirement > or equal to 5 days #1 Nutrition Diagnosis Inadequate oral intake Diagnosis Progress(for reassessment Continues documentation) Is patient on ventilator? No Is Patient Ambulatory and/or Out of Bed No REE-([facility]-confined to bed) [phone] Kcal/Kg value to use for calculation 12 Approximate Energy Requirements Using 1372 kcal/Kg Calculation Used for Recommendations Kcal/kg Additional Notes PRO needs: 87-104 g(1-1.2g/kg AdBW 86.5kg) Fluid needs: 1 mL/kcal Nutrition Intervention Change Diet Order: Continue Add Supplement/Snack (indicate name/kcal Glucerna daily /protein ) Provides kCal: 220 Provides Protein (gm) 10 Goal #1 Meet at least 75% of estimated energy and protein needs Anticipated Discharge Needs: Cardiac/Consistent carb with ONS as needed Follow-Up By: 01/26/20 Additional Comments F/U for stable PO intakes
[2020-01-26] MEDS: DEXAMETHASONE 4 MG TAB PO SCH (09:25)
--- NOTE | 2020-01-26 10:10 | Progress Note ---
Assessment and Plan Cultures: COVID-19 positive MRSA culture negative A/P: 80-year-old female past medical history hypertension, diabetes, GERD, depression admitted with altered mental status, incidentally found to be Covid positive. #COVID-19: Chest x-ray without consolidation. Patient became hypoxic. Elevated markers, improving. #Hypoxia: Secondary to COVID-19. Patient was on 4 L nasal cannula. Currently on room air. #Leukopenia/thrombocytopenia: Possibly secondary to COVID-19. Improving. #Diabetes: tight glycemic control for best outcomes. #Status post colostomy. Recs: -Continue dexamethasone 6 mg/kg daily for 10 days -D4 of 10 -Continue remdesivir for 5 days-D4 of 5 -Offloading sacral decubitus, small noninfected -If there is any way to check exercise pulse oximeter please do so will follow MD Oz[facility] ([facility]) Office [phone] Subjective Date of service: 01/26/20 Principal diagnosis: COVID Objective - Constitutional Vitals: Vital Signs Temp Pulse Resp BP Pulse Ox 98.0 F 71 20 162/71 90 01/26/20 06:55 01/26/20 06:55 01/26/20 06:55 01/26/20 06:55 01/26/20 06:55 Temperature -Last 24 Hours Temperature 98.0 F Temperature 98.0 F Temperature 98.0 F Temperature 97.8 F - Labs CBC & Chem 7: 01/22/20 15:39 01/21/20 05:21 Labs: Abnormal lab results 01/25/20 01/25/20 01/25/20 Range/Units 11:03 11:03 11:03 D-Dimer 857.98 H (0-234) ng/mlDDU POC Glucose (70-105) mg/dL Ferritin 1362.0 H (10.0-200.0) ng/mL Lactate Dehydrogenase 340 H (91-180) units/L C-Reactive Protein 3.20 H (0.00-1.30) mg/dL 01/25/20 01/25/20 01/25/20 Range/Units 11:32 16:03 22:55 D-Dimer (0-234) ng/mlDDU POC Glucose 122 H 225 H 197 H (70-105) mg/dL Ferritin (10.0-200.0) ng/mL Lactate Dehydrogenase (91-180) units/L C-Reactive Protein (0.00-1.30) mg/dL 01/26/20 Range/Units 07:36 D-Dimer (0-234) ng/mlDDU POC Glucose 143 H (70-105) mg/dL Ferritin (10.0-200.0) ng/mL Lactate Dehydrogenase (91-180) units/L C-Reactive Protein (0.00-1.30) mg/dL
[2020-01-26] MEDS: ENOXAPARIN 40 MG/0.4 ML INJ SUB-Q SCH (21:46)
--- NOTE | 2020-01-27 09:26 | Discharge Summary ---
Providers - Providers Date of Admission: 01/12/20 04:42 Date of discharge: 01/27/20 Attending physician: HECTOR ADAIR 01/12/20 05:22 Consult to Dietitian/Nutrition [CONS] Routine Physician Instructions: Reason For Exam: Reason for Consult: Diet education Consult to Physician [CONS] Routine Comment: Consulting Provider: BRIANDA HART Physician Instructions: Reason For Exam: MARISOL 01/12/20 08:34 Consult to Physician [CONS] Routine Comment: Consulting Provider: ENZO TAPIA Physician Instructions: Reason For Exam: AMS 01/13/20 10:31 Physical Therapy Evaluation and Treat [CONS] Stat Comment: Reason For Exam: evaluation for discharge 01/15/20 10:04 Consult to Case Management [CONS] Routine Services Needed at Discharge: Other Notified:: case management Comment:: subacute rehab placement 01/20/20 01:43 Consult to Physician [CONS] Routine Comment: Consulting Provider: VLAD JORGENSEN Physician Instructions: Reason For Exam: Covid positive 01/22/20 13:34 Consult to Wound/ET Nurse [CONS] Urgent Reason For Exam: wound between left butt Hospitalization Reason for admission: sob Condition: Critical Hospital course: 80-year-old female past medical history hypertension, diabetes, GERD, depression brought to the hospital for altered mental status. As noted the patient was in a [facility], and was not acting in her usual manner. No other acute complaints were noted at the time. She was admitted for MARISOL and mental changes. The patient was initially admitted with diagnosis of acute encephalopathy, diabetes mellitus type 2, hypertension, acute renal failure secondary to vasomotor nephropathy. Discharge planning was occurring, and an order for placement to occur a Covid test was required, which returned positive. The patient later developed complications from the Covid infection with elevated inflammatory markers and increased oxygen requirements. Hospital course and discharge diagnoses below. --Neutropenia; improved[1.8-3.8] Secondary to underlying sepsis And severe Covid 19 infection Continue steroid remdesivir Closely monitor --Severe thrombocytopenia; Closely monitor, continue current management --Severe COVID-19 infection Contact isolation, droplet precautions Oxygen titrate O2 sats to more than 90% Steroids for total 10 days per protocol remdesivir, oxygen titrate O2 sats to more than 90% High inflammatory markers, Home oxygen evaluation Patient is critically ill, with poor prognosis ID following -- Acute toxic metabolic encephalopathy POA Underlying disease process , electrolyte abnormalities Severe neutropenia and thrombocytopenia CT head is normal, Neuro evaluation noted and appreciated PT evaluation, for placement when stable --Type II diabetes mellitus We will monitor Accu-Cheks. Sliding scale coverage ADA diet and insulin as needed --Hypertension We will resume routine home medications on the monitor vital signs closely. --Acute renal failure present on admission; Vasomotor nephropathy resolved --DVT prophylaxis Patient on Lovenox --Moderate malnutrition hypoalbuminemia, albumin 3.0 Nutrition supplements Nutrition consult if needed --Full code status 01/14/2020 -MARISOL resolved, hyperkalemia resolved. Altered mental status resolved. Patient is weak and states she is feeling sick, evaluated by physical therapy and recommend subacute rehab. We will put case management consult. 01/15/2020 -MARISOL resolved, hyperkalemia resolved. Patient was alert and oriented. PT evaluated and recommended subacute rehab. 01/16/20; electrolytes within normal limits, patient feels better, awaiting placement 01/17/2020; clinically stable for discharge, pending placement 01/18/2020; Covid test sent for placement, stable for discharge, case management processing placement 01/19/2020; COVID-19 test positive, patient also has some low-grade fever, contact and droplet isolation ID consult, transfer to third floor Covid wing 01/20/2020; patient is placed on IV steroids, remdesivir follow markers, ID evaluation noted and appreciated Patient is critically ill with poor prognosis 01/21/2020; neutropenia, secondary to underlying severe sepsis Closely monitor, consider Neupogen and neutropenia isolation if neutrophils drop further We will also consider hematology evaluation if needed Patient is critically ill with very poor prognosis 01/23/2020; neutropenia and thrombocytopenia improved, closely monitor Patient receiving steroids and remdesivir, follow ID recommendations 01/24/2020. Patient to complete remdesivir today. Continue steroids per ID recommendations. Patient currently without oxygen and satting 95% on room air. Discussed with case management possibility of discharge to Covid unit at a nursing facility. 01/25/2020. Continue steroids per ID recommendations. Remdesivir completed. Discussed with case management possibility of discharge to Covid unit at a nursing facility. 01/26/2020. Continue dexamethasone per ID recommendation. Inflammatory markers remain elevated with D-dimer 857, ferritin 1362, and CRP 3.2. Mobility protocols for pressure ulcer prophylaxis. 01/27/2020. ID recommends continue dexamethasone 6 mg/kg daily for completion of 10 days. Patient completed remdesivir on 01/24/2020. Continue offloading sacral decubitus ulcer that is is small and noninfected. I discussed with case management who will discharge the patient to a [facility] nursing facility with supplemental oxygen. Dedicated discharge time 35 minutes Disposition: [id number] SNF [facility] Time spent for discharge: 35 - Discharge Diagnoses (1) Vasomotor nephropathy Status: Acute (2) COVID-19 Status: Acute (3) Neutropenia Status: Acute (4) Thrombocytopenia Status: Acute (5) Moderate protein-calorie malnutrition Status: Acute (6) Acute kidney injury Status: Acute (7) Diabetes mellitus Status: Acute (8) Encephalopathy acute Status: Acute (9) Hypertension Status: Acute Core Measure Documentation - Palliative Care Palliative Care/ Comfort Measures: Not Applicable - Core Measures Any of the following diagnoses?: none Exam - Constitutional Vitals: Temp Pulse Resp BP Pulse Ox 98.0 F 101 H 20 186/71 99 01/27/20 05:11 01/27/20 05:11 01/27/20 05:11 01/27/20 05:11 01/27/20 05:11 General appearance: Present: no acute distress, well-nourished - EENT Eyes: Present: PERRL ENT: hearing intact, clear oral mucosa - Neck Neck: Present: supple, normal ROM - Respiratory Respiratory effort: normal Respiratory: bilateral: CTA - Cardiovascular Heart Sounds: Present: S1 & S2. Absent: rub, click - Extremities Extremities: pulses symmetrical, No edema Peripheral Pulses: within normal limits - Abdominal General gastrointestinal: Present: soft, non-tender, non-distended, normal bowel sounds Female genitourinary: Present: normal - Integumentary Integumentary: Present: clear, warm, dry - Musculoskeletal Musculoskeletal: gait normal, strength equal bilaterally - Psychiatric Psychiatric: appropriate mood/affect, intact judgment & insight - Neurologic Neurologic: CNII-XII intact, moves all extremities Plan Activity: advance as tolerated Weight Bearing Status: Weight Bear as Tolerated Diet: diabetic Follow up with: [facility] [Other] - 7 Days NIYA NJ MD [Staff Physician] - 7 Days
[2020-01-27] MEDS: DEXAMETHASONE 4 MG TAB PO SCH (10:25)
[2020-01-27] MEDS: INSULIN LISPRO 100 UNIT/ML VIAL 3 mL SUB-Q SCH (10:26)
[2020-01-27 14:35] VITALS: BP 140/68
== END 2020-01-27 14:56 | DRG 91 ==
LOC: ED 02:04 → OBSVTOIN 04:42 → 4A 04:42 → 3A 01-19 23:08
PROVIDERS: ADMIT Internal Medicine Geriatric Medicine; ATTEND Hospitalist
PROC: XW033E5 Introduction of Remdesivir Anti-infective into Peripheral Vein, Percutaneous Approach, New Technology Group 5 (ICD-10-PCS; principal; 2020-01-20)
DX: G92 Toxic encephalopathy (principal); N17.0 Acute kidney failure with tubular necrosis; U07.1 COVID-19; A41.89 Other specified sepsis; E44.0 Moderate protein-calorie malnutrition; E87.5 Hyperkalemia; I10 Essential (primary) hypertension; E11.9 Type 2 diabetes mellitus without complications; K21.9 Gastro-esophageal reflux disease without esophagitis; F32.9 Major depressive disorder, single episode, unspecified; E66.01 Morbid (severe) obesity due to excess calories; Z68.38 Body mass index [BMI] 38.0-38.9, adult; D70.9 Neutropenia, unspecified; D69.6 Thrombocytopenia, unspecified
CPT/HCPCS: 36415; 70450; 71045; 80048; 80053; 80307; 80320; 81001; 82140; 82550; 82570; 82728; 82962; 83615; 84145; 84156; 84300; 84484; 85007; 85025; 85379; 86140; 87116; 93005; 94760; 96361; 96374; G0378; G0480; J1100; J1644; J1650; J2270; J2405; J7030; J8540; U0003